=== PATIENT | male | born 1965 | race Caucasian/White ===

== ENCOUNTER 2020-12-02 15:13 | Inpatient (IN) ==
[2020-12-02] MEDS ORDERED: IOPAMIDOL 100 ML BOTTLE IV ONE (15:14)
[2020-12-02] MEDS ORDERED: ONDANSETRON 4 MG/2 ML VIAL IV ONE (15:46)
[2020-12-02] MEDS ORDERED: KETOROLAC 15 MG/ML VIAL IV ONE (15:46)
[2020-12-02] MEDS ORDERED: 0.9 % SODIUM CHLORIDE 1,000 ML IV ONE ×2 (15:46→18:11)
--- NOTE | 2020-12-02 16:32 | XRay Report ---
CLINICAL INFORMATION: cough COMPARISON: 11/13/2020 FINDINGS: Heart size, mediastinum and pulmonary vessels are normal. COPD changes and multiple tiny densely calcified granulomas throughout both lungs again noted. There are no infiltrates, soft tissue nodules or other new pulmonary abnormalities. Pleural spaces are normal IMPRESSION: COPD. No acute disease Interpreted and Authenticated by: Ty Roland 12/02/20
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
[2020-12-02 17:11] LABS: Hematocrit 48.3 % (40.1-51.0); Hemoglobin 16.1 g/dL (13.7-17.5); Mean Cell Volume 96.6 fL (80.0-100.0); Mean Corpuscular HGB Conc 33.3 g/dL (31.0-36.0); Platelet Count 219 K/mcL (140-440); WBC 6.4 K/mcL (4.5-11.0)
[2020-12-02 17:33] LABS: ALT/SGPT 33 U/L (<40); AST/SGOT 25 U/L (<40); Albumin 3.4 gm/dL (3.2-5.2); Alkaline Phosphatase 100 U/L (39-117); Bilirubin,Total 0.2 mg/dL (0.1-1.0); Blood Urea Nitrogen 12 mg/dL (6-20); Calcium 8.8 mg/dL (8.6-10.4); Carbon Dioxide 28 mmol/L (22-30); Chloride 97 mmol/L (96-108); Globulin 3.5 gm/dL (2.2-3.7); Glomerular Filtration Rate 101; Glucose 111 mg/dL (70-105)
[2020-12-02] MEDS ORDERED: cefTRIAXone 1 GM VIAL IV ONE (17:35)
[2020-12-02 18:02] LABS: Band Neutrophils % 3 % (0-10); Eosinophils % (Manual) 1 % (0-7); Lymphocytes % 11 % (15-49); Monocytes % (Manual) 5 % (1-12); Platelet Estimate NORMAL (Normal); RBC Morphology NORMAL (Normal); Reactive Lymphocytes 2 % (0-2); Segmented Neutrophils % 78 % (38-78)
[2020-12-02] MEDS ORDERED: CEPHALEXIN (PP) 250 MG CAPSULE (#4) PO SCH (18:30)
[2020-12-02] MEDS ORDERED: IPRATROPIUM/ALBUTEROL 3 ML AMPUL.NEB NEB ONE ×2 (18:44→23:39)
[2020-12-02] MEDS ORDERED: CLAVULANATE PO ONE (20:13)
[2020-12-02] MEDS ORDERED: AMOXICILLIN PO ONE (20:13)
[2020-12-02] MEDS ORDERED: AZITHROMYCIN 250 MG TABLET PO ONE (20:13)
[2020-12-02] MEDS ORDERED: methylPREDNISolone SOD SUCC 125 MG/2 ML VIAL IV ONE (20:36)
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
[2020-12-02] MEDS ORDERED: METOCLOPRAMIDE 10 MG/2 ML VIAL IV PRN (22:18)
[2020-12-02] MEDS ORDERED: POTASSIUM CHLORIDE 20 MEQ TABLET PO PRN ×2 (22:18)
[2020-12-02] MEDS ORDERED: POLYETHYLENE GLYCOL 3350 17 GM PACKET PO PRN (22:18)
[2020-12-02] MEDS ORDERED: IPRATROPIUM/ALBUTEROL 3 ML AMPUL.NEB NEB PRN (22:18)
[2020-12-02] MEDS ORDERED: HEPARIN 5,000 UNIT/ML VIAL SQ SCH (22:18)
[2020-12-02] MEDS ORDERED: NON FORMULARY MEDICATION 1 DOSE MISCELL (Fluticasone-Umeclidin-Vilanter [Trelegy Ellipta] INHALATION SCH (22:18)
[2020-12-02] MEDS ORDERED: ONDANSETRON 4 MG/2 ML VIAL IV PRN (22:18)
[2020-12-02] MEDS ORDERED: HYDROcodone/APAP 5/325MG TABLET PO PRN (22:18)
[2020-12-02] MEDS ORDERED: SENNOSIDES 1 TABLET PO PRN (22:18)
[2020-12-02] MEDS ORDERED: MAGNESIUM SULFATE 2 GM/50 ML BAG IV PRN (22:18)
[2020-12-02] MEDS ORDERED: POTASSIUM CHLORIDE 40 MEQ in DEXTROSE 5% IN WATER 500 ML IV PRN (22:18)
[2020-12-02] MEDS: DOCUSATE SODIUM 100 MG CAPSULE PO SCH (22:44)
[2020-12-02] MEDS ORDERED: HEPARIN 5,000 UNIT/ML VIAL ONE (23:29)
[2020-12-02] MEDS ORDERED: METOPROLOL TARTRATE 25 MG TABLET ONE (23:29)
[2020-12-02] MEDS: AZITHROMYCIN 500 MG in DEXTROSE 5% IN WATER 250 ML IV SCH (23:50)
[2020-12-02] MEDS: METOPROLOL TARTRATE 25 MG TABLET PO SCH (23:53)
[2020-12-02] MEDS: 0.9 % SODIUM CHLORIDE 10 ML SYRINGE IV SCH (23:53)
[2020-12-02] MEDS: IPRATROPIUM/ALBUTEROL 3 ML AMPUL.NEB NEB SCH (23:54)
[2020-12-03] MEDS: ACETAMINOPHEN 325 MG TABLET PO PRN ×2 (00:49→10:41)
[2020-12-03] MEDS ORDERED: ACETAMINOPHEN 325 MG TABLET PO ONE (00:52)
[2020-12-03] MEDS: 0.9 % SODIUM CHLORIDE 10 ML SYRINGE IV SCH ×3 (04:14→21:22)
[2020-12-03] MEDS: IPRATROPIUM/ALBUTEROL 3 ML AMPUL.NEB NEB SCH ×2 (07:14→13:52)
--- NOTE | 2020-12-03 07:34 | Internal Med Progress Note ---
SUBJECTIVE Subjective Patient information: Note initiated : 12/03/20 at 7:31 am Service Date, if different from initiated Date: [] Patient: Min Hoang a 55 y/o M admitted on 12/02/20 for Mouth pain. Chief Complaint: [] Interval history: Chief Complaint: [] History of present illness: Mr. Hoang is a 55 year old M Presents the ED with severe tooth pain. Patient states month ago he broke a wisdom tooth and he was planning on seeing a dentist but has been too busy he says. He says he came in today because the pain recently just got much worse and he had swelling and he felt poorly and he felt like he was getting poisoning. He also notes a history of COPD and he says his infection prevention practitioner and primary care been talking about possible oxygen over the past month with him. He had some test scheduled but they were postponed. He has a chronic cough and chronic shortness of breath which he feels are unchanged for the most part but he says he feels more wheezy the past couple days. Has had headache chills and nausea. Feels weak. Denies chest pain. In the ED he was evaluated for his tooth pain but found to be wheezing on exam and found to be hypoxic in the mid 80s on room air. Given duo nebs and started on steroids in the ED and admission was requested for COPD exacerbation with hypoxia. He was tachycardic as well. His CT chest was done which was read as no pulmonary emboli per my discussion with the ER provider. 12/03 Patient states he had poor sleep last night because of interruptions. Says he has a headache and finally got Tylenol. Seems to be frustrated. States has minimal cough denies shortness of breath at rest. Patient unvaccinated. Review of Systems: denies headache/fever/chills/nausea/vomiting/chest or abdominal pain/diarrhea. Otherwise see above. Constitutional Vitals: Vital Signs Temp Pulse Resp BP Pulse Ox 96.8 F L 71 16 106/81 97 12/03/20 07:28 12/03/20 07:28 12/03/20 07:28 12/03/20 07:28 12/03/20 07:28 Period Temp Pulse Resp BP Sys/Garcia Pulse Ox Last 24 Hr 96.8 F-99.9 F 71-130 14-29 106-169/66-114 82-97 Intake and Output 12/02/20 12/03/20 12/03/20 21:59 05:59 13:59 Intake Total 1999 250 Output Total 1000 Balance 1999 -750 Weight 80.739 kg Intake & Output: Intake & Output 12/02/20 12/03/20 12/03/20 21:59 05:59 13:59 Intake Total 1999 250 Output Total 1000 Balance 1999 -750 Weight 80.739 kg Intake: IV 1999 250 Sodium Chloride 0.9% 1,000 ml @ 2000 Wide Open IV [facility] Rx#: [id number] Zithromax 500 mg In Dextrose 5% 250 in Water 250 ml @ 250 mls/hr IV Q24H [facility] Rx#:[id number] Output: Void Amount 1000 Other: Urine Appearance Clear Urine Color Bright Yellow Urine Odor Normal Exam: General: Alert, Awake, No acute Distress Eyes/N/T: EOMI, Head/Neck: neck supple, CV: RRR, No murmurs, Pulm: no wheezing today, no rales Abd: soft, nontender, +BS x4 Ext: no clubbing/cyanosis/edema Neuro: Alert, no focal deficits, moves all extremities, Skin: warm/dry OBJ DATA Labs CBC & Chem 7: 12/02/20 16:22 12/02/20 16:22 Labs: Abnormal Lab Results 12/02/20 12/02/20 16:22 16:22 MPV 11.0 H Lymphocytes % 11 L Glucose 111 H Meds: Medications Acetaminophen (Acetaminophen 325 Mg Tablet) 650 mg PO Q6HP PRN PRN Reason: PAIN/FEVER > 101 Last Admin: 12/03/20 00:49 Dose: 650 mg Documented by: Hydrocodone Bitart/Acetaminophen (Hydrocodone/Apap 5/325mg Tablet) 1 tab PO Q4HP PRN PRN Reason: PAIN LEVEL 3-6 Albuterol/Ipratropium (Ipratropium/Albuterol 3 Ml Ampul.Neb) 3 ml NEB Q6HRT [facility] Stop: 12/04/20 19:01 Last Admin: 12/03/20 07:14 Dose: Not Given Documented by: Albuterol/Ipratropium (Ipratropium/Albuterol 3 Ml Ampul.Neb) 3 ml NEB Q4HP PRN PRN Reason: Shortness Of Breath Amoxicillin/Clavulanate Potassium (Amoxicillin/Potassium Clav 875 Mg Tablet) [facility] Docusate Sodium (Docusate Sodium 100 Mg Capsule) 100 mg PO BID [facility] Last Admin: 12/02/20 22:44 Dose: Not Given Documented by: Enoxaparin Sodium (Enoxaparin 40 Mg/0.4 Ml Syringe) 40 mg SQ DAILY [facility] Heparin Sodium (Porcine) (Heparin 5,000 Unit/Ml Vial) 5,000 unit SQ Q12 [facility] Stop: 12/02/20 22:19 Last Admin: 12/02/20 23:52 Dose: 5,000 unit Documented by: Azithromycin 500 mg/ Dextrose 250 mls @ 250 mls/hr IV Q24H [facility]; Protocol Stop: 12/04/20 23:17 Last Infusion: 12/03/20 00:55 Dose: Infused Documented by: Potassium Chloride 40 meq/ (Dextrose) 520 mls @ 130 mls/hr IV UD PRN PRN Reason: Potassium < 3 Magnesium Sulfate (Magnesium Sulfate) 2 gm in 50 mls @ 50 mls/hr IV UD PRN PRN Reason: Magnesium </= 1.6 Methylprednisolone Sodium Succinate (Methylprednisolone Sod Succ 40 Mg/Ml Vial) 40 mg IV Q12 [facility] Metoclopramide HCl (Metoclopramide 10 Mg/2 Ml Vial) 10 mg IV Q6HP PRN PRN Reason: Nausea And Vomiting Metoprolol Tartrate (Metoprolol Tartrate 25 Mg Tablet) 25 mg PO BID [facility] Last Admin: 12/02/20 23:53 Dose: 25 mg Documented by: Nicotine (Nicotine 21 Mg Patch) mg TD Q24H [facility] Non-Formulary Medication (Esprvnxvijd-Sffpftgem-Ucgpwsqe [Trelegy Ellipta]) 1 inh INHALATION Q24H [facility] Last Admin: 12/02/20 23:34 Dose: Not Given Documented by: Ondansetron HCl (Ondansetron 4 Mg/2 Ml Vial) 4 mg IV Q4HP PRN PRN Reason: Nausea And Vomiting Polyethylene Glycol (Polyethylene Glycol 3350 17 Gm Packet) 17 gm PO DAILYP PRN PRN Reason: Constipation Potassium Chloride (Potassium Chloride 20 Meq Tablet) 40 meq PO UD PRN PRN Reason: Potssium is 3-3.5 Potassium Chloride (Potassium Chloride 20 Meq Tablet) 40 meq PO UD PRN PRN Reason: Potassium < 3 Senna (Sennosides 1 Tablet) 2 tab PO DAILYP PRN PRN Reason: Constipation Sodium Chloride (0.9 % Sodium Chloride 10 Ml Syringe) 10 ml IV Q8 [facility] Last Admin: 12/03/20 04:14 Dose: 10 ml Documented by: Venlafaxine HCl (Venlafaxine 75 Mg Cap.Xl.24h) 75 mg PO QDAY [facility] A/P Narrative A/P Narrative: A: *Acute hypoxic respiratory failure: *AECOPD(not on home oxygen but he says his infection prevention practitioner has been discussing that lately): -rapid covid neg, pending f/u *Broken tooth/suspected dental infection: *HTN: *Depression: P: -steroids(wean)/nebs -IS/Acapella, home IH, RT -O2 supp, may need at d/c -hold lasix, cont home BB -augmentin of suspected dental infection; f/u with dentist - -ppx: lovenox full code Time Spent With Patient Time: Total time spent is greater than 50% in coordination of care (as docu mented) at patient's floor/unit and/or counseling patient: QUALITY Stroke Symptom Onset Unknown: No VTE Deep Vein Thrombosis/Pulmonary Embolism Present on Admission: No
[2020-12-03] MEDS: AMOXICILLIN/POTASSIUM CLAV 875 MG TABLET PO SCH ×2 (07:51→17:37)
--- NOTE | 2020-12-03 07:51 | Cat Scan Report ---
CLINICAL INFORMATION: Hypoxia and tachycardia COMPARISON: Chest CTs 07/23/2018 and 08/11/2020 TECHNIQUE: 80 cc of Isovue-370 were injected intravenously, and 25 seconds later, 0.625 mm helical slices were obtained from the lung apices through the bases. Following reconstruction, 2.5 mm sagittal, coronal and axial reformations were processed and reviewed at lung, mediastinal and bone windows. 7 mm axial MIPS were also obtained to optimize pulmonary nodule detection. The exam was performed using radiation dose optimization techniques including, but not limited to, automated exposure control, adjustment of the mA and/or kV according to patient size and use of iterative reconstruction technique. FINDINGS: Pulmonary parenchymal windows show moderate emphysema changes consisting predominantly of chronic bronchitis with elevated lung volumes and wall thickening/dilatation of the bronchi. Only a few bullae are seen within the right upper lobe. Large band of fibrosis encases the right upper lobe and segmental bronchi extending to the apical pleura. No change from the prior two examinations. Scattered tiny calcified granulomas in both lungs maintain stability. There are no new or enlarging nodules. New small groundglass and alveolar infiltrates are scattered within the periphery of the left upper and lower lobes. Infection is suspected. Pleural spaces are normal. Mediastinal windows mild central pulmonary artery enlargement: main pulmonary diameter 3 cm. The heart is normal in size, however there is asymmetric enlargement of the right ventricle and atrium supportive of elevated pulmonary artery pressures. No appreciable atherosclerotic plaque present in the coronary arteries. The thoracic aorta is normal diameter with diffuse fibrofatty calcific plaque. Mildly enlarged lymph nodes the lower mediastinum and right hilum maintain stability of these should represent benign reactive lymph nodes. Esophagus is grossly normal. The thyroid is unremarkable. Bones and soft tissues of the chest wall show no abnormality. Superior abdominal images are unremarkable. IMPRESSION: 1. Centrilobular emphysema changes consisting, predominantly, of chronic bronchitis with few bullae confined to the right upper lobe. Moderate linear fibrosis in the right upper lobe extending to apical pleural maintains long-term stability 2. Scattered (4-5) small groundglass infiltrates in the left upper and lower lobes which are new. Suspect infection or, less likely, aspiration. 3. Mildly enlarged lymph nodes the lower mediastinum and right hilum maintain long-term stability compatible benign reactive adenopathy 4. Mild enlargement of the central pulmonary arteries and right heart chambers suggesting pulmonary hypertension related to emphysema. Consider correlation with echocardiogram Interpreted and Authenticated by: Ty Roland/5/21
[2020-12-03] MEDS ORDERED: methylPREDNISolone SOD SUCC 40 MG/ML VIAL IV SCH (09:00)
[2020-12-03] MEDS: Fluticasone-Umeclidin-Vilanter [Trelegy Ellipta] Inhaler INH SCH (09:50)
[2020-12-03] MEDS: METOPROLOL TARTRATE 25 MG TABLET PO SCH ×2 (09:50→21:21)
[2020-12-03] MEDS: ENOXAPARIN 40 MG/0.4 ML SYRINGE SQ SCH (09:50)
[2020-12-03] MEDS: VENLAFAXINE 75 MG CAP.XL.24H PO SCH (09:50)
[2020-12-03] MEDS: DOCUSATE SODIUM 100 MG CAPSULE PO SCH ×2 (09:51→21:21)
[2020-12-03] MEDS: NICOTINE 21 MG PATCH TD SCH (10:41)
[2020-12-03 11:00] LABS: Hematocrit 49.9 % (40.1-51.0); Mean Cell Volume 100.2 fL (80.0-100.0); Mean Corpuscular HGB Conc 32.1 g/dL (31.0-36.0); Platelet Count 218 K/mcL (140-440); RBC 4.98 M/mcL (4.63-6.08); Red Cell Distribution Width 12.9 % (11.5-14.5); WBC 6.2 K/mcL (4.5-11.0)
[2020-12-03] MEDS ORDERED: LORazepam 2 MG/ML VIAL IV ONE (11:01)
[2020-12-03 11:23] LABS: ALT/SGPT 28 U/L (<40); AST/SGOT 21 U/L (<40); Albumin/Globulin Ratio 0.9 (1.0-2.3); Alkaline Phosphatase 93 U/L (39-117); Bilirubin,Direct < 0.2 mg/dL (0-0.3); Bilirubin,Total 0.2 mg/dL (0.1-1.0); Blood Urea Nitrogen 13 mg/dL (6-20); Calcium 8.7 mg/dL (8.6-10.4); Carbon Dioxide 26 mmol/L (22-30); Chloride 96 mmol/L (96-108); Globulin 3.5 gm/dL (2.2-3.7); Glomerular Filtration Rate 107; Glucose 266 mg/dL (70-105); Lactate Dehydrogenase 228 U/L (135-225); Phosphorous 2.8 mg/dL (2.5-4.5); Triglycerides 112 mg/dL (<150); Uric Acid 5.1 mg/dL (2.5-8.0)
--- NOTE | 2020-12-03 11:23 | Discharge Summary ---
Discharge Provider Provider Patient information: Note initiated : 12/03/20 at 11:22 am Service Date, if different from initiated Date: [] Patient: Min Hoang 55 y/o M admitted on 12/02/20 for Mouth pain. Chief Complaint: [] Date of admission: 12/02/20 21:51 Primary care physician: Yamil Perry MD Consults: 12/02/20 Consult to Physician [CONS] Stat Comment: Consulting Provider: Ho Dasilva Reason For Exam: Physician to Consult Discharge Meds Discharge Medications Home Medications albuterol sulfate 90 mcg/actuation aerosol inhaler 2 puff INHALATION Q6H PRN #8.5 g 08/18/20 [Rx Confirmed 12/02/20 Last Taken 12/01/20 09:00] fluticasone fur. 200 mcg-umeclid 62.5 mcg-vilant 25 mcg inhalat.powder 1 inh INHALATION Q24H #60 ea 08/18/20 [Rx Confirmed 12/02/20 Last Taken 12/01/20 09:00] metoprolol tartrate 25 mg tablet 25 mg PO BID #60 tab 08/18/20 [Rx Confirmed 12/02/20 Last Taken 12/02/20 09:00] nicotine 21 mg/24 hr daily transdermal patch 1 patch TRANSDERMAL Q24H #14 ea 08/18/20 [Rx Confirmed 12/02/20 Last Taken 12/02/20 09:00] potassium chloride 10 mEq tablet,extended release 10 meq PO QDAY #30 tab 08/18/20 [Rx Confirmed 12/02/20 Last Taken 12/02/20 09:00] ipratropium bromide [Atrovent HFA] 2 puff INHALATION PRN PRN 08/25/20 [History Confirmed 12/02/20 Last Taken Unknown] venlafaxine 75 mg capsule,extended release 24 hr 75 mg PO QDAY #30 cap 10/06/20 [Rx Confirmed 12/02/20 Last Taken 12/02/20 09:00] furosemide 40 mg tablet See Rx Instructions .ROUTE .COMPLEX tab 11/08/20 [History Confirmed 12/02/20 Last Taken 12/02/20 09:00] chlorhexidine gluconate [Peridex] 15 ml MM BID #118 mouthwash 12/02/20 [Rx Last Taken Unknown] amoxicillin-pot clavulanate 875 mg PO BIDCC #10 tab 12/03/20 [Rx Last Taken Unknown] dexamethasone 6 mg PO QDAY #3 tab 12/03/20 [Rx Last Taken Unknown] COURSE Hospital Course Hospital course: History of present illness: Mr. Hoang is a 55 year old M Presents the ED with severe tooth pain. Patient states month ago he broke a wisdom tooth and he was planning on seeing a dentist but has been too busy he says. He says he came in today because the pain recently just got much worse and he had swelling and he felt poorly and he felt like he was getting poisoning. 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 He had some test scheduled but they were postponed. He has a chronic cough and chronic shortness of breath which he feels are unchanged for the most part but he says he feels more wheezy the past couple days. Has had headache chills and nausea. Feels weak. Denies chest pain. In the ED he was evaluated for his tooth pain but found to be wheezing on exam and found to be hypoxic in the mid 80s on room air. Given duo nebs and started on steroids in the ED and admission was requested for COPD exacerbation with hypoxia. He was tachycardic as well. His CT chest was done which was read as no pulmonary emboli per my discussion with the ER provider. 12/03 Patient states he had poor sleep last night because of interruptions. Says he has a headache and finally got Tylenol. Seems to be frustrated. States has minimal cough denies shortness of breath at rest. Patient unvaccinated. 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 has been discussing that lately): -rapid covid neg, pending f/u *Broken tooth/suspected dental infection: *HTN: *Depression: Discharge diagnosis: Acute exacerbation COPD acute hypoxic respite failure dental infection Secondary discharge diagnosis: Hypertension depression Time Spent with Patient Time attestation: Total time spent providing and/or coordinating discharge services: Time spent: Greater than 30 minutes EXAM Constitutional Vitals: Temp Pulse Resp BP Pulse Ox 97 F 75 18 133/86 95 12/03/20 11:21 12/03/20 11:21 12/03/20 11:21 12/03/20 11:21 12/03/20 11:21 Discharge Data Data Completed and Pending Labs on day of discharge: Labs from last 24 hours 12/03/20 12/03/20 12/02/20 09:48 09:48 16:22 WBC 6.2 RBC 4.98 Hgb 16.0 Hct 49.9 MCV 100.2 H MCH 32.1 MCHC 32.1 RDW 12.9 Plt Count 218 MPV 11.0 H Seg Neutrophils % Band Neutrophils % Lymphocytes % Monocytes % (Manual) Eosinophils % (Manual) Reactive Lymphocytes Platelet Estimate Pending RBC Morphology Pending VBG Lactic Acid Sodium Pending Potassium Pending Chloride Pending Carbon Dioxide Pending Anion Gap Pending BUN Pending Creatinine Pending GFR Calculation Pending Glucose Pending Uric Acid Pending Calcium Pending Phosphorus Pending Magnesium Pending Total Bilirubin Pending Direct Bilirubin Pending GGT Pending AST Pending ALT Pending Alkaline Phosphatase Pending Lactate Dehydrogenase Pending Troponin T < 0.01 Total Protein Pending Albumin Pending Globulin Pending Albumin/Globulin Ratio Pending Triglycerides Pending 12/02/20 12/02/20 12/02/20 16:22 16:22 16:22 WBC 6.4 RBC 5.00 Hgb 16.1 Hct 48.3 MCV 96.6 MCH 32.2 MCHC 33.3 RDW 13.0 Plt Count 219 MPV 11.0 H Seg Neutrophils % 78 Band Neutrophils % 3 Lymphocytes % 11 L Monocytes % (Manual) 5 Eosinophils % (Manual) 1 Reactive Lymphocytes 2 Platelet Estimate Normal RBC Morphology Normal VBG Lactic Acid 1.2 Sodium 134 Potassium 4.1 Chloride 97 Carbon Dioxide 28 Anion Gap 9.0 BUN 12 Creatinine 0.8 GFR Calculation 101 Glucose 111 H Uric Acid Calcium 8.8 Phosphorus Magnesium Total Bilirubin 0.2 Direct Bilirubin GGT AST 25 ALT 33 Alkaline Phosphatase 100 Lactate Dehydrogenase Troponin T Total Protein 6.9 Albumin 3.4 Globulin 3.5 Albumin/Globulin Ratio 1.0 Triglycerides Discharge Plan Patient/Caregiver Discharge Instructions Activity: increase activity as tolerated Diet: Regular Diet Activity Restrictions/Additional Instructions: RT for home oxygen evaluation. Follow-up with dentist 3 to 10 days. Prescriptions: New chlorhexidine gluconate [Peridex] 118 ML mouthwash 15 ml MM BID Qty: 118 RF: 0 amoxicillin-pot clavulanate 875-125 mg Tablet 875 mg PO BIDCC Qty: 10 RF: 0 dexamethasone 6 mg tablet 6 mg PO QDAY Qty: 3 RF: 0 Continued ipratropium bromide [Atrovent HFA] 2 puff inhalation PRN PRN (Reason: Shortness Of Breath Or Wheezing) RF: 0 venlafaxine 75 mg capsule,extended release 24hr 75 mg PO QDAY Qty: 30 RF: 1 furosemide 40 mg tablet See Rx Instructions .ROUTE .COMPLEX RF: 0 metoprolol tartrate 25 mg tablet 25 mg PO BID Qty: 60 RF: 3 albuterol sulfate 90 mcg/actuation HFA aerosol inhaler 2 puff inhalation Q6H PRN (Reason: shortness of breath or wheezing) Qty: 8.5 RF: 3 Trelegy Ellipta 200-62.5-25 mcg blister with device 1 inh inhalation Q24H Qty: 60 RF: 6 potassium chloride 10 mEq tablet extended release 10 meq PO QDAY Qty: 30 RF: 3 nicotine 21 mg/24 hr patch 24 hour 1 patch transdermal Q24H Qty: 14 RF: 0 Follow Up Plan Follow up with: Yamil Perry MD [Primary Care Provider] - Patient Disposition: Home, Self-Care Prognosis: Fair Overall status at discharge: patient is progressing back to baseline QUALITY VTE Deep Vein Thrombosis/Pulmonary Embolism Present on Admission: No
[2020-12-03 13:13] LABS: Band Neutrophils % 3 % (0-10); Lymphocytes % 11 % (15-49); Platelet Estimate NORMAL (Normal); RBC Morphology NORMAL (Normal); Segmented Neutrophils % 86 % (38-78)
[2020-12-03] MEDS: AZITHROMYCIN 500 MG in DEXTROSE 5% IN WATER 250 ML IV SCH (14:45)
[2020-12-03] MEDS ORDERED: REMDESIVIR 200 MG in 0.9 % SODIUM CHLORIDE 250 ML IV ONE (15:00)
[2020-12-03] MEDS: predniSONE 20 MG TABLET PO SCH (17:36)
--- NOTE | 2020-12-03 18:46 | XRay Report ---
CLINICAL INFORMATION: f/u. covid positive COMPARISON: 12/02/2020 FINDINGS: Heart size, mediastinum and pulmonary vessels remain normal. Centrilobular emphysema and multiple tiny calcified granulomas scattered throughout both lungs are seen as before. Moderate vague infiltrates have progressed in the left upper and left lower lungs. No effusion IMPRESSION: Moderate, yet vague, patchy infiltrates progressing in the left upper and lower lungs. Findings compatible Covid pneumonia. Underlying COPD Interpreted and Authenticated by: Ty Roland 12/03/20
[2020-12-04] MEDS: 0.9 % SODIUM CHLORIDE 10 ML SYRINGE IV SCH ×3 (05:55→21:26)
--- NOTE | 2020-12-04 07:25 | Internal Med Progress Note ---
SUBJECTIVE Subjective Patient information: Note initiated : 12/04/20 at 7:23 am Service Date, if different from initiated Date: [] Patient: Min Haong a 55 y/o M admitted on 12/02/20 for Mouth pain. Chief Complaint: [] Interval history: History of present illness: Mr. Hoang is a 55 year old M Presents the ED with severe tooth pain. Patient states month ago he broke a wisdom tooth and he was planning on seeing a dentist but has been too busy he says. He says he came in today because the pain recently just got much worse and he had swelling and he felt poorly and he felt like he was getting poisoning. 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 He had some test scheduled but they were postponed. He has a chronic cough and chronic shortness of breath which he feels are unchanged for the most part but he says he feels more wheezy the past couple days. Has had headache chills and nausea. Feels weak. Denies chest pain. In the ED he was evaluated for his tooth pain but found to be wheezing on exam and found to be hypoxic in the mid 80s on room air. Given duo nebs and started on steroids in the ED and admission was requested for COPD exacerbation with hypoxia. He was tachycardic as well. His CT chest was done which was read as no pulmonary emboli per my discussion with the ER provider. 12/03 Patient states he had poor sleep last night because of interruptions. Says he has a headache and finally got Tylenol. Seems to be frustrated. States has minimal cough denies shortness of breath at rest. Patient unvaccinated. 12/04 Has mild cough. Shortness of breath. Only requiring several liters currently. Complains of or sleep from bed and interruptions in neck and back pain. Review of Systems: denies headache/fever/chills/nausea/vomiting/chest or abdominal pain/diarrhea. Otherwise see above. Constitutional Vitals: Vital Signs Temp Pulse Resp BP Pulse Ox 97.1 F 77 20 122/58 92 12/04/20 04:00 12/04/20 04:00 12/04/20 04:00 12/04/20 04:00 12/04/20 04:00 Period Temp Pulse Resp BP Sys/Garcia Pulse Ox Last 24 Hr 96.6 F-97.6 F 71-87 16-20 106-133/58-95 90-97 Intake and Output 12/03/20 12/04/20 12/04/20 21:59 05:59 13:59 Intake Total 740 100 Balance 740 100 Weight 81.817 kg Intake & Output: Intake & Output 12/03/20 12/04/20 12/04/20 21:59 05:59 13:59 Intake Total 740 100 Balance 740 100 Weight 81.817 kg Intake: IV 500 Zithromax 500 mg In Dextrose 5% 250 in Water 250 ml @ 250 mls/hr IV Q24H [facility] Rx#:[id number] Veklury 200 mg In Sodium 250 Chloride 0.9% 250 ml @ 500 mls/ hr IV ONCE ONE Rx#:[id number] Oral 240 100 Exam: General: Alert, Awake, No acute Distress Eyes/N/T: EOMI, Head/Neck: neck supple, CV: RRR, No murmurs, Pulm: no wheezing today, minimal fine rales Abd: soft, nontender, +BS x4 Ext: no clubbing/cyanosis/edema Neuro: Alert, no focal deficits, moves all extremities, Skin: warm/dry OBJ DATA Labs CBC & Chem 7: 12/03/20 09:48 12/03/20 09:48 Labs: Abnormal Lab Results 12/03/20 12/03/20 12/02/20 09:48 09:48 16:22 MCV 100.2 H MPV 11.0 H Seg Neutrophils % 86 H Lymphocytes % 11 L Glucose 266 H 111 H Lactate Dehydrogenase 228 H Albumin 3.0 L Albumin/Globulin Ratio 0.9 L 12/02/20 16:22 MCV MPV 11.0 H Seg Neutrophils % Lymphocytes % 11 L Glucose Lactate Dehydrogenase Albumin Albumin/Globulin Ratio Meds: Medications Acetaminophen (Acetaminophen 325 Mg Tablet) 650 mg PO Q6HP PRN PRN Reason: PAIN/FEVER > 101 Last Admin: 12/03/20 10:41 Dose: 650 mg Documented by: Hydrocodone Bitart/Acetaminophen (Hydrocodone/Apap 5/325mg Tablet) 1 tab PO Q4HP PRN PRN Reason: PAIN LEVEL 3-6 Albuterol/Ipratropium (Ipratropium/Albuterol 3 Ml Ampul.Neb) 3 ml NEB Q4HP PRN PRN Reason: Shortness Of Breath Amoxicillin/Clavulanate Potassium (Amoxicillin/Potassium Clav 875 Mg Tablet) [facility] Last Admin: 12/03/20 17:37 Dose: 875 mg Documented by: Docusate Sodium (Docusate Sodium 100 Mg Capsule) 100 mg PO BID [facility] Last Admin: 12/03/20 21:21 Dose: 100 mg Documented by: Enoxaparin Sodium (Enoxaparin 40 Mg/0.4 Ml Syringe) 40 mg SQ DAILY [facility] Last Admin: 12/03/20 09:50 Dose: 40 mg Documented by: Azithromycin 500 mg/ Dextrose 250 mls @ 250 mls/hr IV Q24H [facility]; Protocol Stop: 12/04/20 23:17 Last Infusion: 12/03/20 15:45 Dose: Infused Documented by: Potassium Chloride 40 meq/ (Dextrose) 520 mls @ 130 mls/hr IV UD PRN PRN Reason: Potassium < 3 Magnesium Sulfate (Magnesium Sulfate) 2 gm in 50 mls @ 50 mls/hr IV UD PRN PRN Reason: Magnesium </= 1.6 REMDESIVIR 100 mg/ Sodium (Chloride) 250 mls @ 500 mls/hr IV Q24H [facility] Stop: 12/07/20 15:29 Metoclopramide HCl (Metoclopramide 10 Mg/2 Ml Vial) 10 mg IV Q6HP PRN PRN Reason: Nausea And Vomiting Metoprolol Tartrate (Metoprolol Tartrate 25 Mg Tablet) 25 mg PO BID [facility] Last Admin: 12/03/20 21:21 Dose: 25 mg Documented by: Nicotine (Nicotine 21 Mg Patch) 21 mg TD DAILY@1000 [facility] Last Admin: 12/03/20 10:41 Dose: 21 mg Documented by: Ondansetron HCl (Ondansetron 4 Mg/2 Ml Vial) 4 mg IV Q4HP PRN PRN Reason: Nausea And Vomiting Last Admin: 12/03/20 15:57 Dose: 4 mg Documented by: Fluticasone- Umeclidin-Vilanter [ Trelegy Ellipta] Inhaler 1 dose INH Q24H [facility] Last Admin: 12/03/20 09:50 Dose: Not Given Documented by: Polyethylene Glycol (Polyethylene Glycol 3350 17 Gm Packet) 17 gm PO DAILYP PRN PRN Reason: Constipation Potassium Chloride (Potassium Chloride 20 Meq Tablet) 40 meq PO UD PRN PRN Reason: Potssium is 3-3.5 Potassium Chloride (Potassium Chloride 20 Meq Tablet) 40 meq PO UD PRN PRN Reason: Potassium < 3 Prednisone (Prednisone 20 Mg Tablet) 40 mg PO BIDCC [facility] Last Admin: 12/03/20 17:36 Dose: 40 mg Documented by: Senna (Sennosides 1 Tablet) 2 tab PO DAILYP PRN PRN Reason: Constipation Sodium Chloride (0.9 % Sodium Chloride 10 Ml Syringe) 10 ml IV Q8 [facility] Last Admin: 12/04/20 05:55 Dose: 10 ml Documented by: Venlafaxine HCl (Venlafaxine 75 Mg Cap.Xl.24h) 75 mg PO QDAY [facility] Last Admin: 12/03/20 09:50 Dose: 75 mg Documented by: A/P Narrative A/P Narrative: A: *Covid PNA: -santiago test in ED neg. 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 been discussing that lately): 2/2 above *Acute hypoxic respiratory failure: -on 2L NC *Broken tooth/suspected dental infection: *HTN: *Depression: P: -remdes/glucocorticoids -IS/Acapella, home IH, RT -O2 supp, may need at d/c -cont home BB/lasix -augmentin for suspected dental infection; f/u with dentist - -ppx: lovenox full code Time Spent With Patient Time: Total time spent is greater than 50% in coordination of care (as documente d) at patient's floor/unit and/or counseling patient: QUALITY Stroke Symptom Onset Unknown: No VTE Deep Vein Thrombosis/Pulmonary Embolism Present on Admission: No
[2020-12-04] MEDS: AMOXICILLIN/POTASSIUM CLAV 875 MG TABLET PO SCH ×2 (08:30→17:45)
[2020-12-04] MEDS: ENOXAPARIN 40 MG/0.4 ML SYRINGE SQ SCH (08:31)
[2020-12-04] MEDS: DOCUSATE SODIUM 100 MG CAPSULE PO SCH ×2 (08:31→21:25)
[2020-12-04] MEDS: VENLAFAXINE 75 MG CAP.XL.24H PO SCH (08:31)
[2020-12-04] MEDS: METOPROLOL TARTRATE 25 MG TABLET PO SCH ×2 (08:31→21:25)
[2020-12-04] MEDS: predniSONE 20 MG TABLET PO SCH ×2 (08:31→17:44)
[2020-12-04] MEDS: AZITHROMYCIN 500 MG in DEXTROSE 5% IN WATER 250 ML IV SCH (08:31)
[2020-12-04] MEDS: Fluticasone-Umeclidin-Vilanter [Trelegy Ellipta] Inhaler INH SCH (08:43)
[2020-12-04] MEDS: FUROSEMIDE 40 MG TABLET PO SCH (08:57)
[2020-12-04] MEDS: NICOTINE 21 MG PATCH TD SCH (10:20)
[2020-12-04] MEDS: REMDESIVIR 100 MG in 0.9 % SODIUM CHLORIDE 250 ML IV SCH (15:21)
[2020-12-05] MEDS: 0.9 % SODIUM CHLORIDE 10 ML SYRINGE IV SCH (06:01)
[2020-12-05 07:48] LABS: Basophils # (Auto) 0.02 K/mcL (0.00-0.30); Basophils % (Auto) 0.1 % (0.0-2.0); Eosinophils # (Auto) 0 K/mcL (0.00-0.70); Eosinophils % (Auto) 0 % (0.0-7.0); Hematocrit 48.3 % (40.1-51.0); Hemoglobin 15.8 g/dL (13.7-17.5); Lymphocytes # (Auto) 1.46 K/mcL (1.50-4.80); Lymphocytes % (Auto) 10.8 % (15.5-49.0); Mean Cell Volume 98.6 fL (80.0-100.0); Mean Corpuscular HGB Conc 32.7 g/dL (31.0-36.0); Mean Platelet Volume 10.9 fL (7.4-10.4); Monocytes # (Auto) 0.92 K/mcL (0.10-0.90); Monocytes % (Auto) 6.8 % (1.0-12.0); Neutrophils % (Auto) 82.3 % (38.0-78.0); Platelet Count 276 K/mcL (140-440); Red Cell Distribution Width 12.7 % (11.5-14.5); WBC 13.5 K/mcL (4.5-11.0)
[2020-12-05 08:12] LABS: ALT/SGPT 29 U/L (<40); AST/SGOT 21 U/L (<40); Albumin 3.1 gm/dL (3.2-5.2); Alkaline Phosphatase 87 U/L (39-117); Bilirubin,Total 0.2 mg/dL (0.1-1.0); Blood Urea Nitrogen 20 mg/dL (6-20); Calcium 8.9 mg/dL (8.6-10.4); Carbon Dioxide 32 mmol/L (22-30); Chloride 96 mmol/L (96-108); Globulin 3.2 gm/dL (2.2-3.7); Glomerular Filtration Rate 114; Glucose 97 mg/dL (70-105)
[2020-12-05] MEDS: ENOXAPARIN 40 MG/0.4 ML SYRINGE SQ SCH (08:13)
[2020-12-05] MEDS: FUROSEMIDE 40 MG TABLET PO SCH (08:13)
[2020-12-05] MEDS: AMOXICILLIN/POTASSIUM CLAV 875 MG TABLET PO SCH (08:13)
[2020-12-05] MEDS: VENLAFAXINE 75 MG CAP.XL.24H PO SCH (08:13)
[2020-12-05] MEDS: predniSONE 20 MG TABLET PO SCH (08:13)
[2020-12-05] MEDS: METOPROLOL TARTRATE 25 MG TABLET PO SCH (08:13)
[2020-12-05] MEDS: DOCUSATE SODIUM 100 MG CAPSULE PO SCH (08:13)
[2020-12-05] MEDS: Fluticasone-Umeclidin-Vilanter [Trelegy Ellipta] Inhaler INH SCH (08:14)
[2020-12-05] MEDS: NICOTINE 21 MG PATCH TD SCH (10:09)
--- NOTE | 2020-12-05 10:40 | Discharge Summary ---
Discharge Provider Provider Patient information: Note initiated : 12/05/20 at 10:40 am Service Date, if different from initiated Date: [] Patient: Min Hoang 55 y/o M admitted on 12/02/20 for Mouth pain. Chief Complaint: [CoVID pneumonia, COPD exacerbation, and dental abscess] Date of admission: 12/02/20 21:51 Discharge date: 12/05/20 Primary care physician: Yamil Perry MD Consults: 12/02/20 Consult to Physician [CONS] Stat Comment: Consulting Provider: Ho Dasilva Reason For Exam: Physician to Consult Discharge Meds Discharge Medications Home Medications albuterol sulfate 90 mcg/actuation aerosol inhaler 2 puff INHALATION Q6H PRN #8.5 g 08/18/20 [Rx Confirmed 12/02/20 Last Taken 12/01/20 09:00] fluticasone fur. 200 mcg-umeclid 62.5 mcg-vilant 25 mcg inhalat.powder 1 inh INHALATION Q24H #60 ea 08/18/20 [Rx Confirmed 12/02/20 Last Taken 12/01/20 09:00] metoprolol tartrate 25 mg tablet 25 mg PO BID #60 tab 08/18/20 [Rx Confirmed 12/02/20 Last Taken 12/02/20 09:00] nicotine 21 mg/24 hr daily transdermal patch 1 patch TRANSDERMAL Q24H #14 ea 08/18/20 [Rx Confirmed 12/02/20 Last Taken 12/02/20 09:00] potassium chloride 10 mEq tablet,extended release 10 meq PO QDAY #30 tab 08/18/20 [Rx Confirmed 12/02/20 Last Taken 12/02/20 09:00] ipratropium bromide [Atrovent HFA] 2 puff INHALATION PRN PRN 08/25/20 [History Confirmed 12/02/20 Last Taken Unknown] venlafaxine 75 mg capsule,extended release 24 hr 75 mg PO QDAY #30 cap 10/06/20 [Rx Confirmed 12/02/20 Last Taken 12/02/20 09:00] furosemide 40 mg tablet See Rx Instructions .ROUTE .COMPLEX tab 11/08/20 [History Confirmed 12/02/20 Last Taken 12/02/20 09:00] chlorhexidine gluconate [Peridex] 15 ml MM BID #118 mouthwash 12/02/20 [Rx Last Taken Unknown] HYDROcodone/APAP 5/325MG [Mccamey 5/325Mg] #1 ea 12/05/20 [Rx Last Taken Unknown] amoxicillin-pot clavulanate 875 mg PO BIDCC 7 Days #13 tab 12/05/20 [Rx Last Taken Unknown] COURSE Hospital Course Hospital course: Covid pneumonia: Supplemental oxygen's, remdesivir, prednisone, and Lovenox as anticoagulations given. Patient's oxygen requirement down to 2 L/min on December 05, 2020 and otherwise reached clinical stability. Patient would be discharged with home oxygen. COPD exacerbations: Supplemental oxygen's, prednisone, bronchodilator, azithromycin IV for 3 days were given. Patient's oxygen requirement down to 2 L/min on December 05, 2020 and otherwise reached clinical stability. Patient will be discharged with home oxygen. Dental abscess: Augmentin as antibiotics started for the patient's. Patient will need dentist appointment in order to performed tooth extractions and other associated procedures and treatments. Prescriptions of Augmentin for 1 additional week would be given. Discharge diagnosis: CoVID pneumonia, COPD exacerbation, dental abscess Time Spent with Patient Time attestation: Total time spent providing and/or coordinating discharge services: Covid pneumonia: Supplemental oxygen's, remdesivir, prednisone, and Lovenox as anticoagulations given. Patient's oxygen requirement down to 2 L/min on December 05, 2020 and otherwise reached clinical stability. Patient would be discharged with home oxygen. COPD exacerbations: Supplemental oxygen's, prednisone, bronchodilator, azithromycin IV for 3 days were given. Patient's oxygen requirement down to 2 L/min on December 05, 2020 and otherwise reached clinical stability. Patient will be discharged with home oxygen. Dental abscess: Augmentin as antibiotics started for the patient's. Patient will need dentist appointment in order to performed tooth extractions and other associated procedures and treatments. Prescriptions of Augmentin for 1 additional week would be given. EXAM Constitutional Vitals: Temp Pulse Resp BP Pulse Ox 36.2 C 84 20 120/80 94 12/05/20 07:44 12/05/20 07:44 12/05/20 07:44 12/05/20 07:44 12/05/20 07:44 General appearance: cooperative and no acute distress Head Head exam: Present atraumatic and normocephalic Eye Eye exam: Present EOMI and PERRL ENT ENT exam: Present mucous membranes moist, normal exam and normal external ear exam Additional comments: Nasal cannula in place Dental decay Neck Neck exam: Present normal inspection; Absent lymphadenopathy, tenderness and thyromegaly Respiratory Respiratory exam: Present rhonchi and wheezes; Absent accessory muscle use and respiratory distress Cardiovascular Cardiovascular exam: Present normal rate and rhythm; Absent JVD GI/Abdominal GI/Abdominal exam: Present normal bowel sounds and soft; Absent organomegaly and tenderness Rectal Rectal exam: Present deferred Extremities Exam Extremities exam: Present full ROM, normal capillary refill and normal inspection; Absent tenderness Neurological Exam Neurological exam: Present alert, CN II-XII intact and oriented X3; Absent motor sensory deficit Psychiatric Psychiatric exam: Present normal affect and normal mood; Absent anxious and depressed Skin Skin exam: Present dry and intact Discharge Data Data Completed and Pending Labs on day of discharge: Labs from last 24 hours 12/05/20 12/05/20 12/05/20 05:46 05:46 05:46 WBC 13.5 H RBC 4.90 Hgb 15.8 Hct 48.3 MCV 98.6 MCH 32.2 MCHC 32.7 RDW 12.7 Plt Count 276 MPV 10.9 H Neut % (Auto) 82.3 H Lymph % (Auto) 10.8 L Barbour % (Auto) 6.8 Eos % (Auto) 0 Baso % (Auto) 0.1 Lymph # (Auto) 1.46 L [place]bour # (Auto) 0.92 H Eos # (Auto) 0 Baso # (Auto) 0.02 Absolute Neutrophils 11.11 H Sodium 137 Potassium 4.6 Chloride 96 Carbon Dioxide 32 H Anion Gap 9.0 BUN 20 Creatinine 0.6 L GFR Calculation 114 Glucose 97 Calcium 8.9 Total Bilirubin 0.2 AST 21 ALT 29 Alkaline Phosphatase 87 C-Reactive Protein 1.20 H Total Protein 6.3 Albumin 3.1 L Globulin 3.2 Albumin/Globulin Ratio 1.0 Discharge Plan Patient/Caregiver Discharge Instructions Activity: increase activity as tolerated Diet: Regular Diet Activity Restrictions/Additional Instructions: RT for home oxygen evaluation. Follow-up with dentist 3 to 10 days. Prescriptions: New chlorhexidine gluconate [Peridex] 118 ML mouthwash 15 ml MM BID Qty: 118 RF: 0 amoxicillin-pot clavulanate 875-125 mg Tablet 875 mg PO BIDCC 7 Days Qty: 13 RF: 0 (DME) Hydrocodone/Apap 5/325mg [Mccamey 5/325mg] See Rx Instructions .Route .MEDSUPPLY Qty: 1 RF: 0 Continued ipratropium bromide [Atrovent HFA] 2 puff inhalation PRN PRN (Reason: Shortness Of Breath Or Wheezing) RF: 0 venlafaxine 75 mg capsule,extended release 24hr 75 mg PO QDAY Qty: 30 RF: 1 furosemide 40 mg tablet See Rx Instructions .ROUTE .COMPLEX RF: 0 metoprolol tartrate 25 mg tablet 25 mg PO BID Qty: 60 RF: 3 albuterol sulfate 90 mcg/actuation HFA aerosol inhaler 2 puff inhalation Q6H PRN (Reason: shortness of breath or wheezing) Qty: 8.5 RF: 3 Trelegy Ellipta 200-62.5-25 mcg blister with device 1 inh inhalation Q24H Qty: 60 RF: 6 potassium chloride 10 mEq tablet extended release 10 meq PO QDAY Qty: 30 RF: 3 nicotine 21 mg/24 hr patch 24 hour 1 patch transdermal Q24H Qty: 14 RF: 0 Follow Up Plan Follow up with: Yamil Perry MD [Primary Care Provider] - Patient Disposition: Home, Self-Care Prognosis: Fair Rehab Potential: Good I certify that the patient requires SNF services: No Overall status at discharge: patient is progressing back to baseline Discharge Orders: Discharge Order (Routine); Ordered 12/05/20 Ordered By: Kenny CALDERÓN VTE Deep Vein Thrombosis/Pulmonary Embolism Present on Admission: No
[2020-12-05] MEDS: REMDESIVIR 100 MG in 0.9 % SODIUM CHLORIDE 250 ML IV SCH (11:03)
--- NOTE | 2020-12-05 16:37 | EKG ---
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
== END 2020-12-05 11:54 | disposition home or self-care (01) | DRG 177 ==
LOC: ED 15:13 → MEDSUR 21:51
PROVIDERS: ADMIT Internal Medicine; ATTEND Internal Medicine

== ENCOUNTER 2021-03-20 10:36 | Inpatient (IN) ==
[2021-03-20] MEDS ORDERED: IPRATROPIUM/ALBUTEROL 3 ML AMPUL.NEB NEB ONE ×2 (10:49→11:25)
--- NOTE | 2021-03-20 10:53 | Emergency Department Note ---
SOB HPI General Chief Complaint: Shortness of Breath/Dyspnea Stated Complaint: shortness of breath, chest pain Time Seen by Provider: 03/20/21 10:52 Source: patient Mode of arrival: wheelchair Limitations: no limitations History of Present Illness HPI Narrative: Narrative: 55-year-old male presents to the emerge department for the third time in 7 days because of difficulty breathing accompanied by back pain which is chronic. Patient has a significant history for COPD. He also has a history for congestive heart failure. He is on 2.5 to 3 L of oxygen at home. He is a smoker though he states he has decreased his intake. On yesterday's visit there was a concern of a possible pneumonia right lower lobe so he was started on azithromycin. Radiologist reviewed the x-ray and read as negative. Patient is taking Lasix every other day for his congestive heart failure. He takes hydrocodone for back pain and sometimes gets Dilaudid. Presently cannot make himself comfortable. He rates his discomfort as a 10 on a 0-to-10 scale. States it is constant. Opiates make it a bit better. No radiation of the sy mptoms into the lower extremities. Not associated with any acute trauma. Past medical history includes COPD, CHF, chronic bronchitis, chronic upper back pain, anxiety. Related Data Home Medications Medication Instructions Recorded Confirmed ipratropium bromide [Atrovent HFA] 2 puff INHALATION PRN PRN 08/25/20 03/20/21 oxygen-air delivery systems 03/11/21 03/20/21 Previous Rx's Medication Instructions Recorded fluticasone fur. 200 mcg-umeclid 1 inh INHALATION Q24H #60 ea 08/18/20 62.5 mcg-vilant 25 mcg inhalat.powder (Trelegy Ellipta) metoprolol tartrate 25 mg tablet 25 mg PO BID #60 tab 08/18/20 nicotine 21 mg/24 hr daily 1 patch TRANSDERMAL Q24H #14 ea 08/18/20 transdermal patch venlafaxine 75 mg capsule,extended 75 mg PO QDAY #30 cap 12/12/20 release 24 hr ipratropium 0.5 mg-albuterol 3 mg 3 ml INHALATION QID #180 ml 12/15/20 (2.5 mg base)/3 mL nebulization soln nebulizers (Altera Nebulizer) #1 ea 12/15/20 albuterol sulfate 90 mcg/actuation 2 puff INHALATION Q6H PRN #8.5 g 01/05/21 aerosol inhaler furosemide 40 mg tablet 40 mg PO Q OTHER DAY #30 tab 01/15/21 potassium chloride 10 mEq 10 meq PO Q OTHER DAY #30 tab 01/15/21 tablet,extended release lidocaine 5 % topical patch 1 patch TOPICAL QDAY PRN #7 ea 03/11/21 (Lidoderm) diazepam 2 mg tablet (Valium) 2 mg PO TID PRN #8 tab 03/19/21 Allergies Allergy/AdvReac Type Severity Reaction Status Date / Time No Known Drug Allergies Allergy Verified 03/20/21 10:40 Review of Systems ROS ROS Narrative: Narrative: Constitutional: Denies fever (Denies) Eyes: Denies eye pain ENT ED: Denies throat pain Cardiovascular: Denies chest pain Respiratory: Reports shortness of breath and wheezes Gastrointestinal: Denies nausea or vomiting Musculoskeletal: Reports back pain (Off and on for 15 years in the upper half of his back. Presently is having another flareup.) Integumentary: Denies rash Neurological: Denies headache Psychiatric: Reports anxiety and other (Tearful when he thinks about his .) Allergic/Immunologic: Denies facial swelling PFSH Narrative Patient History Narrative: Narrative: Medical/Surgical/Family History All Active Problems Back pain (Acute) Acute exacerbation of chronic obstructive pulmonary disease (COPD) (Acute) COPD exacerbation (Acute) Back pain, thoracic (Acute) Pneumonia (Acute) Acute exacerbation of chronic obstructive airways disease (Acute) Bronchitis with bronchospasm (Acute) Back pain of thoracolumbar region (Acute) Pneumonia due to COVID-19 virus (Acute) Acute exacerbation of chronic obstructive pulmonary disease (COPD) (Acute) Fracture of tooth (Acute) Dental caries (Acute) Dental abscess (Acute) GERD (gastroesophageal reflux disease) (Acute) Lung nodules (Acute) Witnessed apneic spells (Chronic) Snoring (Chronic) Hypersomnia (Chronic) Pulmonary hypertension (Chronic) Hypertension (Acute) Exertional shortness of breath (Acute) COPD with acute exacerbation (Acute) Asthma (Acute) Costochondritis (Acute) Portal hypertension (Acute) Heart failure (Acute) PTSD (post-traumatic stress disorder) (Acute) Nightmares (Acute) Emphysema lung (Chronic) Grief (Acute) Tobacco use (Chronic) Medical History Asthma COPD with acute exacerbation Costochondritis Emphysema lung Exertional shortness of breath GERD (gastroesophageal reflux disease) Grief Heart failure Hypersomnia Hypertension Lung nodules Nightmares Portal hypertension PTSD (post-traumatic stress disorder) From dealing w/ 's passing Pulmonary hypertension Snoring Tobacco use Witnessed apneic spells Surgical History H/O left knee surgery Barbed wire was in knee after trauma removal at age 9. No pertinent past surgical history Family History Sister Multiple sclerosis Other No pertinent family history Social History Smoking Status: Current some day smoker Alcohol Intake Frequency: 2+ drinks per day Substance Use: does not use Exam Narrative Narrative: Narrative: General Limitations: no limitations General appearance: Present alert and in distress (Having difficulty breathing along with his back pain) Eye Eye: Absent EOMI Neck Neck: Present normal inspection and trachea midline Respiratory Respiratory: Present respiratory distress, rales/crackles and wheezes Cardiovascular Cardiovascular: Present regular rate and tachycardia Adbominal Abdominal: Present soft and other (Morbidly obese); Absent tenderness Extremities Extremities: Absent pedal edema or pretibial edema Back Back: Present tenderness (Upper back) Neurological Neurological: Present alert and oriented X3 Psychiatric Psychiatric: Present normal affect, normal mood and tearful (When thinking about his ) Skin Skin: Present cool and diaphoretic Course Reevaluation(s) Reevaluation #1: Post neb treatment with albuterol and ipratropium bromide patient continues to have significant wheezes. I will begin a 10 mg albuterol neb treatment. Time: 11:30 Vital Signs Vital signs: Vital Signs Pulse Rate 113 H 03/20/21 10:37 Respiratory Rate 30 H 03/20/21 10:37 Blood Pressure 165/90 03/20/21 10:37 Pulse Oximetry (%) 96 03/20/21 10:37 Pulse Rate 100 H 03/20/21 13:42 Respiratory Rate 20 03/20/21 13:42 Blood Pressure 143/90 03/20/21 13:31 Pulse Oximetry (%) 94 03/20/21 13:42 MDM MDM Narrative Medical decision making narrative: Narrative: Middle-age male with severe history of COPD, chronic bronchitis, and CHF presents the emerge department for the third time in 7 days complaining of difficulty breathing. He also complains of upper back pain where he is having acute exacerbation of his chronic back pain of 15 years duration. On prior visits he has received a Z-Chung for possible lung infection and diazepam for muscle spasms. He is received breathing treatments. In spite of all that he is back here 24 hours later with persistent respiratory distress. Differential diagnosis includes acute pneumonia, acute exacerbation of chronic COPD, bronchitis exacerbation, Covid infection, muscle spasms upper back, other. Patient was noted to have a low pulse ox when he first arrived and was given albuterol nebulized treatment with a unit dose of Atrovent. After this treatment he continued to have significant wheezes anteriorly posteriorly left and right. I ordered a 10 mg albuterol 1 hour neb treatment. Chest x-ray was obtained which was read by the radiologist as showing essentially stable COPD. VBG showed CO2 level of 65. Other blood work is still pending. White count was minimally elevated at 11.3. Hemoglobin 15.8. Mildly elevated at 22. PCO2 elevated at 65.8 on a VBG. Chest x-ray did not show pneumonia but did show the chronic COPD. Patient improved after albuterol nebulized treatment of 1 hour with 10 mg. He also received 40 mg of prednisone p.o. I discussed the case with Dr. Dasilva who is the hospitalist. We discussed the fact that this was the third ER visit in 7 days for the same issue. He has agreed to admit the patient to the hospital for more aggressive treatment for this patient. Lab Data Result diagrams: 03/20/21 12:43 03/20/21 10:55 Labs: Lab Results 03/20/21 03/20/21 03/20/21 Range/Units 10:55 10:55 10:55 WBC TNP RBC TNP Hgb TNP Hct TNP MCV TNP MCH TNP MCHC TNP RDW TNP Plt Count TNP MPV TNP Neut % (Auto) TNP Lymph % (Auto) TNP Kendall % (Auto) TNP Eos % (Auto) TNP Baso % (Auto) TNP Lymph # (Auto) TNP Kendall # (Auto) TNP Eos # (Auto) TNP Baso # (Auto) TNP Absolute Neutrophils TNP Differential Comment TNP D-Dimer 0.36 (0.27-0.50) ug/mL ABG Methemoglobin (0.4-1.5) % VBG pH (7.32-7.42) U VBG pCO2 (41.0-51.0) mmHg VBG pO2 (25.0-40.0) mmHg VBG HCO3 (24.0-28.0) mmol/L VBG Total CO2 (25.0-29.0) mmol/L VBG O2 Saturation (40.0-70.0) % VBG Base Excess (-2-2) Carboxyhemoglobin (0.0-1.5) % THgb Total Hemoglobin (13.5-16.5) gm/Dl Sodium 142 (133-145) mmol/L Potassium 4.1 (3.3-5.1) mmol/L Chloride 100 (96-108) mmol/L Carbon Dioxide 30 (22-30) mmol/L Anion Gap 12.0 (8.0-16.0) BUN 23 H (6-20) mg/dL Creatinine 0.9 (0.7-1.2) mg/dL GFR Calculation 96 Glucose 94 (70-105) mg/dL Calcium 8.9 (8.6-10.4) mg/dL Total Bilirubin 0.2 (0.1-1.0) mg/dL AST 18 (<40) U/L ALT 27 (<40) U/L Alkaline Phosphatase 113 (39-117) U/L Total Protein 7.2 (5.9-8.4) gm/dL Albumin 4.1 (3.2-5.2) gm/dL Globulin 3.1 (2.2-3.7) gm/dL Albumin/Globulin Ratio 1.3 (1.0-2.3) 03/20/21 03/20/21 Range/Units 11:25 12:43 WBC 11.3 H RBC 4.88 Hgb 15.8 Hct 48.5 MCV 99.4 MCH 32.4 MCHC 32.6 RDW 12.0 Plt Count 320 MPV 9.6 Neut % (Auto) 58.2 Lymph % (Auto) 28.4 Kendall % (Auto) 8.7 Eos % (Auto) 3.8 Baso % (Auto) 0.9 Lymph # (Auto) 3.20 Kendall # (Auto) 0.98 H Eos # (Auto) 0.43 Baso # (Auto) 0.10 Absolute Neutrophils 6.57 Differential Comment D-Dimer (0.27-0.50) ug/mL ABG Methemoglobin 0.3 L (0.4-1.5) % VBG pH 7.33 (7.32-7.42) U VBG pCO2 65.8 H* (41.0-51.0) mmHg VBG pO2 40.9 H (25.0-40.0) mmHg VBG HCO3 33.8 H (24.0-28.0) mmol/L VBG Total CO2 35.8 H (25.0-29.0) mmol/L VBG O2 Saturation 65.3 (40.0-70.0) % VBG Base Excess 5 H (-2-2) Carboxyhemoglobin 8.1 H (0.0-1.5) % THgb Total Hemoglobin 15.8 (13.5-16.5) gm/Dl Sodium (133-145) mmol/L Potassium (3.3-5.1) mmol/L Chloride (96-108) mmol/L Carbon Dioxide (22-30) mmol/L Anion Gap (8.0-16.0) BUN (6-20) mg/dL Creatinine (0.7-1.2) mg/dL GFR Calculation Glucose (70-105) mg/dL Calcium (8.6-10.4) mg/dL Total Bilirubin (0.1-1.0) mg/dL AST (<40) U/L ALT (<40) U/L Alkaline Phosphatase (39-117) U/L Total Protein (5.9-8.4) gm/dL Albumin (3.2-5.2) gm/dL Globulin (2.2-3.7) gm/dL Albumin/Globulin Ratio (1.0-2.3) ED POC Tests ED POC Tests: MARILEE - SARS Antigen Negative Discharge Plan Patient/Caregiver Discharge Instructions Pt seen by [facility]/PA only: No Clinical Impression: Acute exacerbation of chronic obstructive airways disease, Bronchitis with bronchospasm Activity: as instructed Patient Disposition: Xfer As Inpt ([facility]) Condition: Fair Follow up with: Yamil Perry MD [Primary Care Provider] - Prescriptions: No Action venlafaxine 75 mg capsule,extended release 24hr 75 mg PO QDAY Qty: 30 2RF albuterol sulfate 90 mcg/actuation HFA aerosol inhaler 2 puff inhalation Q6H PRN (Reason: shortness of breath or wheezing) Qty: 8.5 3RF furosemide 40 mg tablet 40 mg PO Q OTHER DAY Qty: 30 1RF potassium chloride 10 mEq tablet extended release 10 meq PO Q OTHER DAY Qty: 30 1RF Rx Instructions: take w/ lasix ipratropium bromide [Atrovent HFA] 2 puff inhalation PRN PRN (Reason: Shortness Of Breath Or Wheezing) 0RF Rx Instructions: see inst. (DME) Altera Nebulizer Misc See Rx Instructions .Route Qty: 1 0RF Rx Instructions: As directed ipratropium-albuterol 0.5 mg-3 mg(2.5 mg base)/3 mL solution for nebulization 3 ml inhalation QID Qty: 180 3RF metoprolol tartrate 25 mg tablet 25 mg PO BID Qty: 60 3RF Trelegy Ellipta 200-62.5-25 mcg blister with device 1 inh inhalation Q24H Qty: 60 6RF nicotine 21 mg/24 hr patch 24 hour 1 patch transdermal Q24H Qty: 14 0RF (DME) oxygen-air delivery systems 0RF lidocaine [Lidoderm] 5 % adhesive patch,medicated 1 patch topical QDAY PRN (Reason: pain) Qty: 7 0RF Rx Instructions: leave on most painful area for up to 12 hrs diazepam [Valium] 2 mg tablet 2 mg PO TID PRN (Reason: muscle spasm) Qty: 8 0RF
[2021-03-20] MEDS ORDERED: HYDROmorphone 0.5 MG/0.5 ML SYRINGE IV ONE (11:11)
[2021-03-20] MEDS ORDERED: ONDANSETRON 4 MG/2 ML VIAL IV ONE (11:11)
[2021-03-20] MEDS ORDERED: ALBUTEROL SULFATE 5 MG/ML NEB SOLUTION BOTTLE NEB ONE (11:32)
--- NOTE | 2021-03-20 11:51 | XRay Report ---
HISTORY: Dyspnea, COPD, chest pain FINDINGS: Pleural and parenchymal scarring are again seen in the right upper lobe. There is mild upward retraction of the right hilum. Numerous small calcified granulomata are present in the right lung with fewer in the left lung. There is no acute infiltrate and no suspicious mass is detected. No pleural effusion is present. The heart size is normal. Comparison with the prior exam from 03/19/21 shows no change. IMPRESSION: Stable parenchymal scarring and old granulomatous disease. Interpreted and Authenticated by: Felix Cui 03/20/21
[2021-03-20 12:00] LABS: ABG Methemoglobin 0.3 % (0.4-1.5); Total Hemoglobin 15.8 gm/Dl (13.5-16.5); VBG Base Excess 5 (-2-2); VBG HCO3 33.8 mmol/L (24.0-28.0); VBG Oxygen Saturation 65.3 % (40.0-70.0); VBG PCO2 65.8 mmHg (41.0-51.0); VBG PH 7.33 U (7.32-7.42); VBG PO2 40.9 mmHg (25.0-40.0); VBG Total CO2 35.8 mmol/L (25.0-29.0)
[2021-03-20 12:13] LABS: ALT/SGPT 27 U/L (<40); AST/SGOT 18 U/L (<40); Albumin 4.1 gm/dL (3.2-5.2); Albumin/Globulin Ratio 1.3 (1.0-2.3); Alkaline Phosphatase 113 U/L (39-117); Bilirubin,Total 0.2 mg/dL (0.1-1.0); Blood Urea Nitrogen 23 mg/dL (6-20); Calcium 8.9 mg/dL (8.6-10.4); Carbon Dioxide 30 mmol/L (22-30); Chloride 100 mmol/L (96-108); Globulin 3.1 gm/dL (2.2-3.7); Glomerular Filtration Rate 96; Glucose 94 mg/dL (70-105)
[2021-03-20] MEDS ORDERED: predniSONE 20 MG TABLET PO ONE (12:28)
[2021-03-20 13:23] LABS: Basophils % (Auto) 0.9 % (0.0-2.0); Eosinophils # (Auto) 0.43 K/mcL (0.00-0.70); Eosinophils % (Auto) 3.8 % (0.0-7.0); Hematocrit 48.5 % (40.1-51.0); Hemoglobin 15.8 g/dL (13.7-17.5); Lymphocytes % (Auto) 28.4 % (15.5-49.0); Mean Cell Volume 99.4 fL (80.0-100.0); Mean Corpuscular HGB Conc 32.6 g/dL (31.0-36.0); Mean Platelet Volume 9.6 fL (7.4-10.4); Monocytes # (Auto) 0.98 K/mcL (0.10-0.90); Monocytes % (Auto) 8.7 % (1.0-12.0); Neutrophils % (Auto) 58.2 % (38.0-78.0); Platelet Count 320 K/mcL (140-440); RBC 4.88 M/mcL (4.63-6.08); WBC 11.3 K/mcL (4.5-11.0)
[2021-03-20] MEDS ORDERED: methylPREDNISolone SOD SUCC 125 MG/2 ML VIAL IV ONE (14:04)
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
[2021-03-20] MEDS ORDERED: LIDOCAINE PATCH TOPICAL PRN (14:55)
[2021-03-20] MEDS ORDERED: IPRATROPIUM/ALBUTEROL 3 ML AMPUL.NEB NEB PRN (14:55)
[2021-03-20] MEDS ORDERED: SENNOSIDES 1 TABLET PO PRN (14:55)
[2021-03-20] MEDS ORDERED: DEXTROSE 31 GM ORAL.SUSP PO PRN (14:55)
[2021-03-20] MEDS ORDERED: DEXTROSE 50% 50 ML VIAL IV PRN (14:55)
[2021-03-20] MEDS ORDERED: MAGNESIUM SULFATE 2 GM/50 ML BAG IV PRN (14:55)
[2021-03-20] MEDS ORDERED: METOCLOPRAMIDE 10 MG/2 ML VIAL IV PRN (14:55)
[2021-03-20] MEDS ORDERED: POLYETHYLENE GLYCOL 3350 17 GM PACKET PO PRN (14:55)
[2021-03-20] MEDS ORDERED: POTASSIUM CHLORIDE 40 MEQ in DEXTROSE 5% IN WATER 500 ML IV PRN (14:55)
[2021-03-20] MEDS ORDERED: POTASSIUM CHLORIDE 20 MEQ TABLET PO PRN ×2 (14:55)
[2021-03-20] MEDS ORDERED: ONDANSETRON 4 MG/2 ML VIAL IV PRN (14:55)
[2021-03-20] MEDS: NICOTINE 21 MG PATCH TOPICAL SCH (16:18)
[2021-03-20] MEDS: AZITHROMYCIN 500 MG in DEXTROSE 5% IN WATER 250 ML IV SCH (16:19)
[2021-03-20] MEDS: INSULIN LISPRO 1 UNIT/0.01 ML UNIT SQ SCH ×2 (16:40→21:49)
[2021-03-20 18:22] LABS: ABG Methemoglobin 0.1 % (0.4-1.5); Total Hemoglobin 16.7 gm/Dl (13.5-16.5); VBG Base Excess 2 (-2-2); VBG HCO3 30.6 mmol/L (24.0-28.0); VBG Oxygen Saturation 79.4 % (40.0-70.0); VBG PCO2 64.5 mmHg (41.0-51.0); VBG PH 7.29 U (7.32-7.42); VBG PO2 53.7 mmHg (25.0-40.0); VBG Total CO2 32.6 mmol/L (25.0-29.0)
[2021-03-20] MEDS: IPRATROPIUM/ALBUTEROL 3 ML AMPUL.NEB NEB SCH (19:14)
[2021-03-20] MEDS: ENOXAPARIN 30 MG/0.3 ML SYRINGE SQ SCH (21:05)
[2021-03-20] MEDS: METOPROLOL TARTRATE 25 MG TABLET PO SCH (21:05)
[2021-03-20] MEDS: methylPREDNISolone SOD SUCC 125 MG/2 ML VIAL IV SCH (21:48)
[2021-03-20] MEDS: 0.9 % SODIUM CHLORIDE 10 ML SYRINGE IV SCH (21:52)
[2021-03-20] MEDS: BUDESONIDE 0.5 MG/2 ML AMPUL.NEB NEB SCH (23:30)
[2021-03-21] MEDS: DIAZEPAM 2 MG TABLET PO PRN ×2 (00:03→11:06)
[2021-03-21] MEDS: IPRATROPIUM/ALBUTEROL 3 ML AMPUL.NEB NEB SCH ×4 (00:56→20:10)
[2021-03-21] MEDS: methylPREDNISolone SOD SUCC 125 MG/2 ML VIAL IV SCH ×3 (05:34→21:06)
[2021-03-21] MEDS: 0.9 % SODIUM CHLORIDE 10 ML SYRINGE IV SCH ×3 (05:37→21:06)
--- NOTE | 2021-03-21 07:26 | Internal Med Progress Note ---
SUBJECTIVE Subjective Patient information: Note initiated : 03/21/21 at 7:22 am Service Date, if different from initiated Date: [] Patient: Min Hoang a 55 y/o M admitted on 03/20/21 for shortness of breath, chest pain. Chief Complaint: [] Interval history: chief Complaint: [] History of present illness: Mr. Hoang is a 55 year old M Presents to the ED for the third time since the for shortness of breath. Diagnosis COPD exacerbation Is on 2-3 L of oxygen at home, don't think he wears it all the time. In triage he appeared quite labored and wheezing. Oxygen saturations were mid 80s on room air. Chest x-ray unremarkable for acute but has chronic changes. Patient denies chest pain but has occasional cough and shortness of breath. Patient quite lethargic. VBG with CO2 retention. He is still smoking a few cigarettes per day. 03/21 Patient on BiPAP overnight. Patient awake and feeling much better. Minimal cough. Runs of breath improving. Review of Systems: denies headache/fever/chills/nausea/vomiting/chest or abdominal pain/diarrhea. Otherwise see above. Constitutional Vitals: Vital Signs Temp Pulse Resp BP Pulse Ox 97.2 F 80 15 130/92 93 03/21/21 04:00 03/21/21 06:00 03/21/21 06:00 03/21/21 06:00 03/21/21 06:00 Period Temp Pulse Resp BP Sys/Garcia Pulse Ox Last 24 Hr 96.7 F-98.6 F 76-113 12-36 116-166/76-146 86-100 Intake and Output 03/20/21 03/21/21 03/21/21 21:59 05:59 13:59 Intake Total 250 220 Output Total 500 Balance -250 220 Weight 82.781 kg Intake & Output: Intake & Output 03/20/21 03/21/21 03/21/21 21:59 05:59 13:59 Intake Total 250 220 Output Total 500 Balance -250 220 Weight 82.781 kg Intake: IV 250 Zithromax 500 mg In Dextrose 5% 250 in Water 250 ml @ 250 mls/hr IV DAILY@1100 [facility] Rx#:[id number] Oral 220 Output: Void Amount 500 Other: Meal Snack Percent of Meal Consumed 100% Feeding Ability Independent Urine Appearance Clear Urine Color Bright Yellow Exam: General: Awake, No acute Distress, obese Eyes/N/T: EOMI, Head/Neck: neck supple, CV: RRR, No murmurs, Pulm: Diminished b/l but much better today, no wheezing today, prolonged expiratory phase Abd: soft, nontender, +BS x4 Ext: no clubbing/cyanosis, 1+ b/l LE edema Neuro: alert, no focal deficits, moves all extremities, Skin: warm/dry OBJ DATA Labs CBC & Chem 7: 03/20/21 12:43 03/20/21 10:55 Labs: Abnormal Lab Results 03/20/21 03/20/21 03/20/21 18:00 12:43 11:25 WBC 11.3 H [place] # (Auto) 0.98 H ABG Methemoglobin 0.1 L 0.3 L VBG pH 7.29 L VBG pCO2 64.5 H* 65.8 H* VBG pO2 53.7 H 40.9 H VBG HCO3 30.6 H 33.8 H VBG Total CO2 32.6 H 35.8 H VBG O2 Saturation 79.4 H VBG Base Excess 5 H Carboxyhemoglobin 5.8 H 8.1 H Total Hemoglobin 16.7 H BUN Procalcitonin 03/20/21 03/20/21 10:55 10:55 WBC [place] # (Auto) ABG Methemoglobin VBG pH VBG pCO2 VBG pO2 VBG HCO3 VBG Total CO2 VBG O2 Saturation VBG Base Excess Carboxyhemoglobin Total Hemoglobin BUN 23 H Procalcitonin 0.78 H Meds: Medications Acetaminophen (Acetaminophen 325 Mg Tablet) 650 mg PO Q6HP PRN; Protocol PRN Reason: Per Pain Protocol/Fever > 101 Albuterol/Ipratropium (Ipratropium/Albuterol 3 Ml Ampul.Neb) 3 ml NEB Q4HP PRN PRN Reason: Shortness Of Breath Albuterol/Ipratropium (Ipratropium/Albuterol 3 Ml Ampul.Neb) 3 ml NEB Q6HRT [place] Last Admin: 03/21/21 00:56 Dose: 3 ml Documented by: Budesonide (Budesonide 0.5 Mg/2 Ml Ampul.Neb) 0.5 mg NEB Q12 [place] Last Admin: 03/20/21 23:30 Dose: 0.5 mg Documented by: Dextrose (Dextrose 50% 50 Ml Vial) 0 ml IV UD PRN PRN Reason: Hypoglycemia Diagnostic Test (Pha) (Accu-Chek 1 Each Strip) 1 each FS ACHS [facility] Last Admin: 03/20/21 21:50 Dose: 1 each Documented by: Diazepam (Diazepam 2 Mg Tablet) 2 mg PO TIDP PRN PRN Reason: muscle spasm Last Admin: 03/21/21 00:03 Dose: 2 mg Documented by: Enoxaparin Sodium (Enoxaparin 30 Mg/0.3 Ml Syringe) 30 mg SQ BID [facility] Last Admin: 03/20/21 21:05 Dose: 30 mg Documented by: Furosemide (Furosemide 40 Mg Tablet) 40 mg PO Q48H [facility] Glucose (Dextrose 31 Gm Oral.Susp) 15 gm PO PRN PRN PRN Reason: Hypoglycemia Potassium Chloride 40 meq/ (Dextrose) 520 mls @ 130 mls/hr IV UD PRN PRN Reason: Potassium < 3 Magnesium Sulfate (Magnesium Sulfate) 2 gm in 50 mls @ 50 mls/hr IV UD PRN PRN Reason: Magnesium </= 1.6 Azithromycin 500 mg/ Dextrose 250 mls @ 250 mls/hr IV DAILY@1100 [facility]; Protocol Stop: 03/22/21 11:59 Last Infusion: 03/20/21 18:16 Dose: Infused Documented by: Insulin Human Lispro (Insulin Lispro 1 Unit/0.01 Ml Unit) 0 unit SQ [facility]; Protocol Last Admin: 03/20/21 21:49 Dose: Not Given Documented by: Lidocaine (Lidocaine Patch) 1 patch TOPICAL DAILYP PRN PRN Reason: Pain Methylprednisolone Sodium Succinate (Methylprednisolone Sod Succ 125 Mg/2 Ml Vial) 62.5 mg IV Q8 [facility] Last Admin: 03/21/21 05:34 Dose: 62.5 mg Documented by: Metoclopramide HCl (Metoclopramide 10 Mg/2 Ml Vial) 10 mg IV Q6HP PRN PRN Reason: Nausea And Vomiting Metoprolol Tartrate (Metoprolol Tartrate 25 Mg Tablet) 25 mg PO BID [facility] Last Admin: 03/20/21 21:05 Dose: 25 mg Documented by: Nicotine (Nicotine 21 Mg Patch) 21 mg TOPICAL DAILY [facility] Last Admin: 03/20/21 16:18 Dose: 21 mg Documented by: Ondansetron HCl (Ondansetron 4 Mg/2 Ml Vial) 4 mg IV Q4HP PRN PRN Reason: Nausea And Vomiting Polyethylene Glycol (Polyethylene Glycol 3350 17 Gm Packet) 17 gm PO DAILYP PRN PRN Reason: Constipation Potassium Chloride (Potassium Chloride 10 Meq Tablet) 10 meq PO Q48H [place] Potassium Chloride (Potassium Chloride 20 Meq Tablet) 40 meq PO UD PRN PRN Reason: Potssium is 3-3.5 Potassium Chloride (Potassium Chloride 20 Meq Tablet) 40 meq PO UD PRN PRN Reason: Potassium < 3 Senna (Sennosides 1 Tablet) 2 tab PO DAILYP PRN PRN Reason: Constipation Sodium Chloride (0.9 % Sodium Chloride 10 Ml Syringe) 10 ml IV Q8 [place] Last Admin: 03/21/21 05:37 Dose: 10 ml Documented by: Venlafaxine HCl (Venlafaxine 75 Mg Cap.Xl.24h) 75 mg PO QDAY [place] ABG Interpretation ABG results: 03/20/21 03/20/21 11:25 18:00 ABG Methemoglobin 0.3 L 0.1 L VBG pH 7.33 7.29 L VBG pCO2 65.8 H* 64.5 H* VBG pO2 40.9 H 53.7 H VBG HCO3 33.8 H 30.6 H VBG Total CO2 35.8 H 32.6 H VBG O2 Saturation 65.3 79.4 H VBG Base Excess 5 H 2 A/P Narrative A/P Narrative: A: *AECOPD(2-3L O2@home): 2/2 above -RVP neg, pct elevated *Acute on chronic hypoxic/hypercapnic respiratory failure: -bipap o/n *Encephalopathy (lethargy): 2/2 above -improved *HTN: *PTSD: *Tobacco abuse: *Obesity: P: -glucocorticoids(wean), azithro -IS/Acapella, darling and prn nebs -bipap off today, f/u VBG -cont home BB/lasix -Smoking cessation counseling -ppx: lovenox Time Spent With Patient Time: Total time spent is greater than 50% in coordination of care (as documented) at patient's floor/unit and/or counseling patient: QUALITY VTE Deep Vein Thrombosis/Pulmonary Embolism Present on Admission: No
[2021-03-21 08:04] LABS: Hematocrit 49.7 % (40.1-51.0); Hemoglobin 16.5 g/dL (13.7-17.5); Mean Cell Volume 97.3 fL (80.0-100.0); Mean Corpuscular HGB Conc 33.2 g/dL (31.0-36.0); Mean Platelet Volume 9.8 fL (7.4-10.4); Platelet Count 354 K/mcL (140-440); RBC 5.11 M/mcL (4.63-6.08); Red Cell Distribution Width 11.6 % (11.5-14.5); WBC 18.6 K/mcL (4.5-11.0)
[2021-03-21] MEDS: BUDESONIDE 0.5 MG/2 ML AMPUL.NEB NEB SCH ×2 (08:14→20:10)
[2021-03-21 08:31] LABS: ABG Methemoglobin 0 % (0.4-1.5); Total Hemoglobin 16.2 gm/Dl (13.5-16.5); VBG Base Excess 7 (-2-2); VBG Oxygen Saturation 92.8 % (40.0-70.0); VBG PCO2 55.2 mmHg (41.0-51.0); VBG PH 7.41 U (7.32-7.42); VBG Total CO2 35.7 mmol/L (25.0-29.0)
[2021-03-21 08:39] LABS: Band Neutrophils % 4 % (0-10); Lymphocytes % 6 % (15-49); Monocytes % (Manual) 3 % (1-12); Platelet Estimate NORMAL (Normal); RBC Morphology NORMAL (Normal); Segmented Neutrophils % 87 % (38-78)
[2021-03-21] MEDS: INSULIN LISPRO 1 UNIT/0.01 ML UNIT SQ SCH ×4 (08:41→21:05)
[2021-03-21] MEDS ORDERED: POTASSIUM CHLORIDE 10 MEQ TABLET PO SCH (09:00)
[2021-03-21] MEDS ORDERED: FUROSEMIDE 40 MG TABLET PO SCH (09:00)
--- NOTE | 2021-03-21 09:00 | Discharge Summary ---
Discharge Provider Provider Patient information: Note initiated : 03/21/21 at 9:00 am Service Date, if different from initiated Date: [] Patient: Min Hoang 55 y/o M admitted on 03/20/21 for shortness of breath, chest pain. Chief Complaint: [] Date of admission: 03/20/21 14:36 Primary care physician: Yamil Perry MD Consults: 03/20/21 Consult to Physician [CONS] Stat Comment: Consulting Provider: Ho Dasilva Reason For Exam: Physician to Consult Discharge Meds Discharge Medications Home Medications fluticasone fur. 200 mcg-umeclid 62.5 mcg-vilant 25 mcg inhalat.powder (Trelegy Ellipta) 1 inh INHALATION Q24H #60 ea 08/18/20 [Rx Confirmed 03/21/21 Last Taken 03/20/21] metoprolol tartrate 25 mg tablet 25 mg PO BID #60 tab 08/18/20 [Rx Confirmed 03/21/21 Last Taken 03/20/21] ipratropium bromide [Atrovent HFA] 2 puff INHALATION PRN PRN 08/25/20 [History Confirmed 03/20/21 Last Taken Unknown] venlafaxine 75 mg capsule,extended release 24 hr 75 mg PO QDAY #30 cap 12/12/20 [Rx Confirmed 03/21/21 Last Taken 03/20/21] ipratropium 0.5 mg-albuterol 3 mg (2.5 mg base)/3 mL nebulization soln 3 ml INHALATION QID #180 ml 12/15/20 [Rx Confirmed 03/21/21 Last Taken 03/20/21] nebulizers (Altera Nebulizer) #1 ea 12/15/20 [Rx Confirmed 03/20/21 Last Taken Unknown] albuterol sulfate 90 mcg/actuation aerosol inhaler 2 puff INHALATION Q6H PRN #8.5 g 01/05/21 [Rx Confirmed 03/20/21 Last Taken 03/10/21] furosemide 40 mg tablet 40 mg PO Q OTHER DAY #30 tab 01/15/21 [Rx Confirmed 03/21/21 Last Taken 03/20/21] potassium chloride 10 mEq tablet,extended release 10 meq PO Q OTHER DAY #30 tab 01/15/21 [Rx Confirmed 03/21/21 Last Taken 03/20/21] lidocaine 5 % topical patch (Lidoderm) 1 patch TOPICAL QDAY PRN #7 ea 03/11/21 [Rx Confirmed 03/20/21 Last Taken Unknown] oxygen-air delivery systems 03/11/21 [History Confirmed 03/20/21 Last Taken Unknown] diazepam 2 mg tablet (Valium) 2 mg PO TID PRN #8 tab 03/19/21 [Rx Confirmed 03/20/21 Last Taken Unknown] azithromycin 500 mg tablet 500 mg PO QDAY 03/20/21 [History Confirmed 03/21/21 Last Taken 03/20/21] prednisone 10 mg tablet 40 mg PO QDAY #1 tab 03/21/21 [Rx Last Taken Unknown] COURSE Hospital Course Hospital course: History of present illness: Mr. Hoang is a 55 year old M Presents to the ED for the third time since the for shortness of breath. Diagnosis COPD exacerbation Is on 2-3 L of oxygen at home, don't think he wears it all the time. In triage he appeared quite labored and wheezing. Oxygen saturations were mid 80s on room air. Chest x-ray unremarkable for acute but has chronic changes. Patient denies chest pain but has occasional cough and shortness of breath. Patient quite lethargic. VBG with CO2 retention. He is still smoking a few cigarettes per day. 03/21 Patient on BiPAP overnight. Patient awake and feeling much better. Minimal cough. Runs of breath improving. A: *AECOPD(2-3L O2@home): 2/2 above -RVP neg, pct elevated *Acute on chronic hypoxic/hypercapnic respiratory failure: -bipap o/n *Encephalopathy (lethargy): 2/2 above -improved *HTN: *PTSD: *Tobacco abuse: *Obesity: Discharge diagnosis: COPD exacerbation acute on chronic hypoxic hypercapnic respiratory failure Secondary discharge diagnosis: Encephalopathy hypertension PTSD tobacco abuse obesity Time Spent with Patient Time attestation: Total time spent providing and/or coordinating discharge services: Time spent: Greater than 30 minutes EXAM Constitutional Vitals: Temp Pulse Resp BP Pulse Ox 97.5 F 106 H 15 130/84 91 03/21/21 08:00 03/21/21 08:16 03/21/21 08:16 03/21/21 08:00 03/21/21 08:16 Discharge Data Data Completed and Pending Labs on day of discharge: Labs from last 24 hours 03/21/21 03/21/21 03/21/21 08:02 05:15 05:15 WBC 18.6 H RBC 5.11 Hgb 16.5 Hct 49.7 MCV 97.3 MCH 32.3 MCHC 33.2 RDW 11.6 Plt Count 354 MPV 9.8 Neut % (Auto) Lymph % (Auto) [place] % (Auto) Eos % (Auto) Baso % (Auto) Lymph # (Auto) [place] # (Auto) Eos # (Auto) Baso # (Auto) Seg Neutrophils % 87 H Band Neutrophils % 4 Lymphocytes % 6 L Monocytes % (Manual) 3 Absolute Neutrophils Differential Comment Platelet Estimate Normal RBC Morphology Normal D-Dimer ABG Methemoglobin 0 L VBG pH 7.41 VBG pCO2 55.2 H VBG pO2 97.0 H VBG HCO3 34.0 H VBG Total CO2 35.7 H VBG O2 Saturation 92.8 H VBG Base Excess 7 H Carboxyhemoglobin 5.2 H Total Hemoglobin 16.2 Sodium Pending Potassium Pending Chloride Pending Carbon Dioxide Pending Anion Gap Pending BUN Pending Creatinine Pending GFR Calculation Pending Glucose Pending Uric Acid Pending Calcium Pending Phosphorus Pending Magnesium Pending Total Bilirubin Pending Direct Bilirubin Pending GGT Pending AST Pending ALT Pending Alkaline Phosphatase Pending Lactate Dehydrogenase Pending Total Protein Pending Albumin Pending Globulin Pending Albumin/Globulin Ratio Pending Triglycerides Pending Procalcitonin 03/21/21 03/20/21 03/20/21 05:14 18:00 12:43 WBC 11.3 H RBC 4.88 Hgb 15.8 Hct 48.5 MCV 99.4 MCH 32.4 MCHC 32.6 RDW 12.0 Plt Count 320 MPV 9.6 Neut % (Auto) 58.2 Lymph % (Auto) 28.4 [place] % (Auto) 8.7 Eos % (Auto) 3.8 Baso % (Auto) 0.9 Lymph # (Auto) 3.20 [place] # (Auto) 0.98 H Eos # (Auto) 0.43 Baso # (Auto) 0.10 Seg Neutrophils % Band Neutrophils % Lymphocytes % Monocytes % (Manual) Absolute Neutrophils 6.57 Differential Comment Platelet Estimate RBC Morphology D-Dimer ABG Methemoglobin 0.1 L VBG pH 7.29 L VBG pCO2 64.5 H* VBG pO2 53.7 H VBG HCO3 30.6 H VBG Total CO2 32.6 H VBG O2 Saturation 79.4 H VBG Base Excess 2 Carboxyhemoglobin 5.8 H Total Hemoglobin 16.7 H Sodium Potassium Chloride Carbon Dioxide Anion Gap BUN Creatinine GFR Calculation Glucose Uric Acid Calcium Phosphorus Magnesium Total Bilirubin Direct Bilirubin GGT AST ALT Alkaline Phosphatase Lactate Dehydrogenase Total Protein Albumin Globulin Albumin/Globulin Ratio Triglycerides Procalcitonin 0.07 03/20/21 03/20/21 03/20/21 11:25 10:55 10:55 WBC RBC Hgb Hct MCV MCH MCHC RDW Plt Count MPV Neut % (Auto) Lymph % (Auto) [place] % (Auto) Eos % (Auto) Baso % (Auto) Lymph # (Auto) [place] # (Auto) Eos # (Auto) Baso # (Auto) Seg Neutrophils % Band Neutrophils % Lymphocytes % Monocytes % (Manual) Absolute Neutrophils Differential Comment Platelet Estimate RBC Morphology D-Dimer 0.36 ABG Methemoglobin 0.3 L VBG pH 7.33 VBG pCO2 65.8 H* VBG pO2 40.9 H VBG HCO3 33.8 H VBG Total CO2 35.8 H VBG O2 Saturation 65.3 VBG Base Excess 5 H Carboxyhemoglobin 8.1 H Total Hemoglobin 15.8 Sodium Potassium Chloride Carbon Dioxide Anion Gap BUN Creatinine GFR Calculation Glucose Uric Acid Calcium Phosphorus Magnesium Total Bilirubin Direct Bilirubin GGT AST ALT Alkaline Phosphatase Lactate Dehydrogenase Total Protein Albumin Globulin Albumin/Globulin Ratio Triglycerides Procalcitonin 0.78 H 03/20/21 03/20/21 10:55 10:55 WBC TNP RBC TNP Hgb TNP Hct TNP MCV TNP MCH TNP MCHC TNP RDW TNP Plt Count TNP MPV TNP Neut % (Auto) TNP Lymph % (Auto) TNP [place] % (Auto) TNP Eos % (Auto) TNP Baso % (Auto) TNP Lymph # (Auto) TNP [place] # (Auto) TNP Eos # (Auto) TNP Baso # (Auto) TNP Seg Neutrophils % Band Neutrophils % Lymphocytes % Monocytes % (Manual) Absolute Neutrophils TNP Differential Comment TNP Platelet Estimate RBC Morphology D-Dimer ABG Methemoglobin VBG pH VBG pCO2 VBG pO2 VBG HCO3 VBG Total CO2 VBG O2 Saturation VBG Base Excess Carboxyhemoglobin Total Hemoglobin Sodium 142 Potassium 4.1 Chloride 100 Carbon Dioxide 30 Anion Gap 12.0 BUN 23 H Creatinine 0.9 GFR Calculation 96 Glucose 94 Uric Acid Calcium 8.9 Phosphorus Magnesium Total Bilirubin 0.2 Direct Bilirubin GGT AST 18 ALT 27 Alkaline Phosphatase 113 Lactate Dehydrogenase Total Protein 7.2 Albumin 4.1 Globulin 3.1 Albumin/Globulin Ratio 1.3 Triglycerides Procalcitonin Discharge Plan Patient/Caregiver Discharge Instructions Activity: increase activity as tolerated and as instructed Diet: Regular Diet Prescriptions: New prednisone 10 mg tablet 40 mg PO QDAY Qty: 1 0RF Rx Instructions: Take 40mg once daily for 3 days then 20mg once daily x3 days then 10mg daily x3 days then 5mg daily x2 days and stop Continued venlafaxine 75 mg capsule,extended release 24hr 75 mg PO QDAY Qty: 30 2RF albuterol sulfate 90 mcg/actuation HFA aerosol inhaler 2 puff inhalation Q6H PRN (Reason: shortness of breath or wheezing) Qty: 8.5 3RF furosemide 40 mg tablet 40 mg PO Q OTHER DAY Qty: 30 1RF potassium chloride 10 mEq tablet extended release 10 meq PO Q OTHER DAY Qty: 30 1RF Rx Instructions: take w/ lasix ipratropium bromide [Atrovent HFA] 2 puff inhalation PRN PRN (Reason: Shortness Of Breath Or Wheezing) 0RF Rx Instructions: see inst. (DME) Altera Nebulizer Misc See Rx Instructions .Route Qty: 1 0RF Rx Instructions: As directed ipratropium-albuterol 0.5 mg-3 mg(2.5 mg base)/3 mL solution for nebulization 3 ml inhalation QID Qty: 180 3RF metoprolol tartrate 25 mg tablet 25 mg PO BID Qty: 60 3RF Trelegy Ellipta 200-62.5-25 mcg blister with device 1 inh inhalation Q24H Qty: 60 6RF (DME) oxygen-air delivery systems 0RF lidocaine [Lidoderm] 5 % adhesive patch,medicated 1 patch topical QDAY PRN (Reason: pain) Qty: 7 0RF Rx Instructions: leave on most painful area for up to 12 hrs diazepam [Valium] 2 mg tablet 2 mg PO TID PRN (Reason: muscle spasm) Qty: 8 0RF azithromycin 500 mg Tablet 500 mg PO QDAY 0RF Rx Instructions: 1 TABLET DAILY FOR 5 DAYS. FILLED ON 03/19/21. Follow Up Plan Follow up with: Yamil Perry MD [Primary Care Provider] - Patient Disposition: Home, Self-Care Prognosis: Fair Overall status at discharge: patient is progressing back to baseline QUALITY VTE Deep Vein Thrombosis/Pulmonary Embolism Present on Admission: No
[2021-03-21] MEDS: VENLAFAXINE 75 MG CAP.XL.24H PO SCH (09:37)
[2021-03-21] MEDS: METOPROLOL TARTRATE 25 MG TABLET PO SCH ×2 (09:37→21:05)
[2021-03-21] MEDS: ENOXAPARIN 30 MG/0.3 ML SYRINGE SQ SCH ×2 (09:37→21:05)
[2021-03-21] MEDS: NICOTINE 21 MG PATCH TOPICAL SCH (09:37)
[2021-03-21] MEDS: CALCIUM CARBONATE 500 MG TAB.CHEW CHEWED PRN (10:07)
[2021-03-21] MEDS: AZITHROMYCIN 500 MG in DEXTROSE 5% IN WATER 250 ML IV SCH (11:09)
[2021-03-21] MEDS: ACETAMINOPHEN 325 MG TABLET PO PRN (13:16)
[2021-03-21 16:15] LABS: ALT/SGPT 24 U/L (<40); AST/SGOT 14 U/L (<40); Albumin 3.7 gm/dL (3.2-5.2); Albumin/Globulin Ratio 1.2 (1.0-2.3); Alkaline Phosphatase 111 U/L (39-117); Bilirubin,Direct < 0.2 mg/dL (0-0.3); Bilirubin,Total 0.2 mg/dL (0.1-1.0); Blood Urea Nitrogen 21 mg/dL (6-20); Calcium 9.1 mg/dL (8.6-10.4); Carbon Dioxide 28 mmol/L (22-30); Chloride 93 mmol/L (96-108); Globulin 3.2 gm/dL (2.2-3.7); Glomerular Filtration Rate 106; Glucose 127 mg/dL (70-105); Lactate Dehydrogenase 225 U/L (135-225); Phosphorous 3.3 mg/dL (2.5-4.5); Triglycerides 140 mg/dL (<150); Uric Acid 7.4 mg/dL (2.5-8.0)
[2021-03-22] MEDS: IPRATROPIUM/ALBUTEROL 3 ML AMPUL.NEB NEB SCH ×4 (02:12→19:05)
[2021-03-22] MEDS: DIAZEPAM 2 MG TABLET PO PRN (02:12)
[2021-03-22] MEDS: methylPREDNISolone SOD SUCC 125 MG/2 ML VIAL IV SCH ×2 (05:49→20:33)
[2021-03-22] MEDS: 0.9 % SODIUM CHLORIDE 10 ML SYRINGE IV SCH ×3 (05:49→20:34)
[2021-03-22 06:15] LABS: Hematocrit 47.9 % (40.1-51.0); Hemoglobin 15.9 g/dL (13.7-17.5); Mean Corpuscular HGB Conc 33.2 g/dL (31.0-36.0); Mean Platelet Volume 9.8 fL (7.4-10.4); Platelet Count 351 K/mcL (140-440); RBC 4.89 M/mcL (4.63-6.08); Red Cell Distribution Width 11.9 % (11.5-14.5); WBC 23.9 K/mcL (4.5-11.0)
[2021-03-22 07:32] LABS: Band Neutrophils % 3 % (0-10); Lymphocytes % 5 % (15-49); Platelet Estimate NORMAL (Normal); RBC Morphology NORMAL (Normal); Segmented Neutrophils % 92 % (38-78)
[2021-03-22] MEDS: BUDESONIDE 0.5 MG/2 ML AMPUL.NEB NEB SCH ×2 (07:45→19:05)
[2021-03-22] MEDS: ACETAMINOPHEN 325 MG TABLET PO PRN (07:54)
[2021-03-22] MEDS: CALCIUM CARBONATE 500 MG TAB.CHEW CHEWED PRN ×2 (07:55→23:56)
[2021-03-22] MEDS: INSULIN LISPRO 1 UNIT/0.01 ML UNIT SQ SCH ×4 (08:00→20:33)
--- NOTE | 2021-03-22 08:39 | Internal Med Progress Note ---
SUBJECTIVE Subjective Patient information: Note initiated : 03/22/21 at 8:34 am Service Date, if different from initiated Date: [] Patient: Min Hoang a 55 y/o M admitted on 03/20/21 for shortness of breath, chest pain. Chief Complaint: [] Interval history: chief Complaint: [] History of present illness: Mr. Hoang is a 55 year old M Presents to the ED for the third time since the for shortness of breath. Diagnosis COPD exacerbation Is on 2-3 L of oxygen at home, don't think he wears it all the time. In triage he appeared quite labored and wheezing. Oxygen saturations were mid 80s on room air. Chest x-ray unremarkable for acute but has chronic changes. Patient denies chest pain but has occasional cough and shortness of breath. Patient quite lethargic. VBG with CO2 retention. He is still smoking a few cigarettes per day. 03/21 Patient on BiPAP overnight. Patient awake and feeling much better. Minimal cough. Runs of breath improving. 03/22 Patient says overall he is feeling much improved but does have these coughing fits well he will desat quite a bit. Leukocytosis from high-dose steroids. Review of Systems: denies headache/fever/chills/nausea/vomiting/chest or abdominal pain/diarrhea. Otherwise see above. Constitutional Vitals: Vital Signs Temp Pulse Resp BP Pulse Ox 98.9 F 97 H 14 143/103 94 03/22/21 08:01 03/22/21 08:11 03/22/21 07:48 03/22/21 08:01 03/22/21 08:11 Period Temp Pulse Resp BP Sys/Garcia Pulse Ox Last 24 Hr 97.0 F-98.9 F 73-108 14-28 118-143/74-103 89-97 Intake and Output 03/21/21 03/22/21 03/22/21 21:59 05:59 13:59 Intake Total 560 480 Output Total 650 500 Balance -90 -20 Weight 83.869 kg Intake & Output: Intake & Output 03/21/21 03/22/21 03/22/21 21:59 05:59 13:59 Intake Total 560 480 Output Total 650 500 Balance -90 -20 Weight 83.869 kg Intake: Oral 560 480 Output: Void Amount 650 500 Other: Meal Dinner Percent of Meal Consumed 100% Feeding Ability Independent Urine Appearance Clear Clear Urine Color Bright Yellow Bright Yellow Urine Odor Normal Normal Exam: General: Awake, No acute Distress, obese Eyes/N/T: EOMI, Head/Neck: neck supple, CV: RRR, No murmurs, Pulm: better aeration, occ wheeze/rhonchi, prolonged expiratory phase Abd: soft, nontender, +BS x4 Ext: no clubbing/cyanosis, 1+ b/l LE edema Neuro: alert, no focal deficits, moves all extremities, Skin: warm/dry OBJ DATA Labs CBC & Chem 7: 03/22/21 04:51 03/21/21 05:15 Labs: Abnormal Lab Results 03/22/21 03/21/21 03/21/21 04:51 08:02 05:15 WBC 23.9 H [place] # (Auto) Seg Neutrophils % 92 H Lymphocytes % 5 L ABG Methemoglobin 0 L VBG pH VBG pCO2 55.2 H VBG pO2 97.0 H VBG HCO3 34.0 H VBG Total CO2 35.7 H VBG O2 Saturation 92.8 H VBG Base Excess 7 H Carboxyhemoglobin 5.2 H Total Hemoglobin Chloride 93 L BUN 21 H Glucose 127 H Procalcitonin 03/21/21 03/20/21 03/20/21 05:15 18:00 12:43 WBC 18.6 H 11.3 H [place] # (Auto) 0.98 H Seg Neutrophils % 87 H Lymphocytes % 6 L ABG Methemoglobin 0.1 L VBG pH 7.29 L VBG pCO2 64.5 H* VBG pO2 53.7 H VBG HCO3 30.6 H VBG Total CO2 32.6 H VBG O2 Saturation 79.4 H VBG Base Excess Carboxyhemoglobin 5.8 H Total Hemoglobin 16.7 H Chloride BUN Glucose Procalcitonin 03/20/21 03/20/21 03/20/21 11:25 10:55 10:55 WBC [place] # (Auto) Seg Neutrophils % Lymphocytes % ABG Methemoglobin 0.3 L VBG pH VBG pCO2 65.8 H* VBG pO2 40.9 H VBG HCO3 33.8 H VBG Total CO2 35.8 H VBG O2 Saturation VBG Base Excess 5 H Carboxyhemoglobin 8.1 H Total Hemoglobin Chloride BUN 23 H Glucose Procalcitonin 0.78 H Meds: Medications Acetaminophen (Acetaminophen 325 Mg Tablet) 650 mg PO Q6HP PRN; Protocol PRN Reason: Per Pain Protocol/Fever > 101 Last Admin: 03/22/21 07:54 Dose: 650 mg Documented by: Albuterol/Ipratropium (Ipratropium/Albuterol 3 Ml Ampul.Neb) 3 ml NEB Q4HP PRN PRN Reason: Shortness Of Breath Albuterol/Ipratropium (Ipratropium/Albuterol 3 Ml Ampul.Neb) 3 ml NEB Q6HRT [place] Last Admin: 03/22/21 07:45 Dose: 3 ml Documented by: Budesonide (Budesonide 0.5 Mg/2 Ml Ampul.Neb) 0.5 mg NEB Q12 [facility] Last Admin: 03/22/21 07:45 Dose: 0.5 mg Documented by: Calcium Carbonate/Glycine (Calcium Carbonate 500 Mg Tab.Chew) 500 mg CHEWED Q4HP PRN PRN Reason: Dyspepsia Last Admin: 03/22/21 07:55 Dose: 500 mg Documented by: Dextrose (Dextrose 50% 50 Ml Vial) 0 ml IV UD PRN PRN Reason: Hypoglycemia Diagnostic Test (Pha) (Accu-Chek 1 Each Strip) 1 each FS ACHS [facility] Last Admin: 03/22/21 08:00 Dose: 1 each Documented by: Diazepam (Diazepam 2 Mg Tablet) 2 mg PO TIDP PRN PRN Reason: muscle spasm Last Admin: 03/22/21 02:12 Dose: 2 mg Documented by: Enoxaparin Sodium (Enoxaparin 30 Mg/0.3 Ml Syringe) 30 mg SQ BID [facility] Last Admin: 03/21/21 21:05 Dose: 30 mg Documented by: Furosemide (Furosemide 40 Mg Tablet) 40 mg PO Q48H [facility] Glucose (Dextrose 31 Gm Oral.Susp) 15 gm PO PRN PRN PRN Reason: Hypoglycemia Potassium Chloride 40 meq/ (Dextrose) 520 mls @ 130 mls/hr IV UD PRN PRN Reason: Potassium < 3 Magnesium Sulfate (Magnesium Sulfate) 2 gm in 50 mls @ 50 mls/hr IV UD PRN PRN Reason: Magnesium </= 1.6 Azithromycin 500 mg/ Dextrose 250 mls @ 250 mls/hr IV DAILY@1100 [place]; Protocol Stop: 12/23/21 11:59 Last Infusion: 03/21/21 12:10 Dose: Infused Documented by: Insulin Human Lispro (Insulin Lispro 1 Unit/0.01 Ml Unit) 0 unit SQ [facility]; Protocol Last Admin: 03/22/21 08:00 Dose: Not Given Documented by: Lidocaine (Lidocaine Patch) 1 patch TOPICAL DAILYP PRN PRN Reason: Pain Last Admin: 03/21/21 13:29 Dose: 1 patch Documented by: Methylprednisolone Sodium Succinate (Methylprednisolone Sod Succ 125 Mg/2 Ml Vial) 62.5 mg IV Q8 [facility] Last Admin: 03/22/21 05:49 Dose: 62.5 mg Documented by: Metoclopramide HCl (Metoclopramide 10 Mg/2 Ml Vial) 10 mg IV Q6HP PRN PRN Reason: Nausea And Vomiting Metoprolol Tartrate (Metoprolol Tartrate 25 Mg Tablet) 25 mg PO BID [facility] Last Admin: 03/21/21 21:05 Dose: 25 mg Documented by: Nicotine (Nicotine 21 Mg Patch) 21 mg TOPICAL DAILY [facility] Last Admin: 03/21/21 09:37 Dose: 21 mg Documented by: Ondansetron HCl (Ondansetron 4 Mg/2 Ml Vial) 4 mg IV Q4HP PRN PRN Reason: Nausea And Vomiting Last Admin: 03/22/21 07:54 Dose: 4 mg Documented by: Polyethylene Glycol (Polyethylene Glycol 3350 17 Gm Packet) 17 gm PO DAILYP PRN PRN Reason: Constipation Potassium Chloride (Potassium Chloride 20 Meq Tablet) 40 meq PO UD PRN PRN Reason: Potssium is 3-3.5 Potassium Chloride (Potassium Chloride 20 Meq Tablet) 40 meq PO UD PRN PRN Reason: Potassium < 3 Potassium Chloride (Potassium Chloride 10 Meq Tablet) 10 meq PO Q48H [facility] Senna (Sennosides 1 Tablet) 2 tab PO DAILYP PRN PRN Reason: Constipation Sodium Chloride (0.9 % Sodium Chloride 10 Ml Syringe) 10 ml IV Q8 [facility] Last Admin: 03/22/21 05:49 Dose: 10 ml Documented by: Venlafaxine HCl (Venlafaxine 75 Mg Cap.Xl.24h) 75 mg PO QDAY [facility] Last Admin: 03/21/21 09:37 Dose: 75 mg Documented by: ABG Interpretation ABG results: 03/20/21 03/20/21 03/21/21 11:25 18:00 08:02 ABG Methemoglobin 0.3 L 0.1 L 0 L VBG pH 7.33 7.29 L 7.41 VBG pCO2 65.8 H* 64.5 H* 55.2 H VBG pO2 40.9 H 53.7 H 97.0 H VBG HCO3 33.8 H 30.6 H 34.0 H VBG Total CO2 35.8 H 32.6 H 35.7 H VBG O2 Saturation 65.3 79.4 H 92.8 H VBG Base Excess 5 H 2 7 H A/P Narrative A/P Narrative: A: *AECOPD(2-3L O2@home): 2/2 above -RVP neg, pct elevated *Acute on chronic hypoxic/hypercapnic respiratory failure: -bipap off to now NC *Encephalopathy (lethargy): 2/2 above -improved *HTN: *PTSD: *Tobacco abuse: *Obesity: P: -glucocorticoids(wean), azithro -IS/Acapella, darling and prn nebs -wean O2 as able -cont home BB/lasix -Smoking cessation counseling -ppx: lovenox Time Spent With Patient Time: Total time spent is greater than 50% in coordination of care (as documented) at patient's floor/unit and/or counseling patient: QUALITY VTE Deep Vein Thrombosis/Pulmonary Embolism Present on Admission: No
[2021-03-22] MEDS: METHOCARBAMOL 750 MG TABLET PO PRN ×2 (08:51→15:43)
[2021-03-22] MEDS: HYDROcodone/APAP 5/325MG TABLET PO PRN ×3 (08:51→23:35)
[2021-03-22] MEDS: guaiFENesin/CODEINE 10 ML UDC PO PRN ×2 (08:52→15:44)
[2021-03-22] MEDS ORDERED: POTASSIUM CHLORIDE 10 MEQ TABLET PO SCH (09:00)
[2021-03-22] MEDS ORDERED: FUROSEMIDE 40 MG TABLET PO SCH (09:00)
--- NOTE | 2021-03-22 09:27 | EKG ---
[facility] Test Date: 2021-03-20 Pat Name: Min Hoang Department: ICU Room: 120B Gender: Male [place]: : 1965 Requested By: Ho Dasilva Order Number: [id number] Reading MD: Shay Kearney Measurements Intervals [place] Rate: 94 P: 80 VA: 142 QRS: 86 QRSD: 95 T: 23 QT: 386 QTc: 483 Interpretive Statements Sinus rhythm Minimal ST depression, inferior leads Borderline prolonged QT interval Electronically Signed On 03-22-2021 9:26:56 PST by Shay Kearney /[email or web address]/[id number]
[2021-03-22] MEDS: ENOXAPARIN 30 MG/0.3 ML SYRINGE SQ SCH ×2 (09:34→20:34)
[2021-03-22] MEDS: METOPROLOL TARTRATE 25 MG TABLET PO SCH ×2 (09:34→20:34)
[2021-03-22] MEDS: VENLAFAXINE 75 MG CAP.XL.24H PO SCH (09:34)
[2021-03-22] MEDS: NICOTINE 21 MG PATCH TOPICAL SCH (09:34)
[2021-03-22] MEDS: LIDOCAINE PATCH TOPICAL SCH (09:35)
[2021-03-22] MEDS: AZITHROMYCIN 500 MG in DEXTROSE 5% IN WATER 250 ML IV SCH (11:25)
[2021-03-22] MEDS ORDERED: methylPREDNISolone SOD SUCC 40 MG/ML VIAL IV ONE (12:00)
[2021-03-22] MEDS ORDERED: methylPREDNISolone SOD SUCC 125 MG/2 ML VIAL IV SCH (21:00)
[2021-03-23] MEDS: IPRATROPIUM/ALBUTEROL 3 ML AMPUL.NEB NEB SCH ×2 (01:16→06:32)
[2021-03-23] MEDS: 0.9 % SODIUM CHLORIDE 10 ML SYRINGE IV SCH (04:05)
[2021-03-23] MEDS: HYDROcodone/APAP 5/325MG TABLET PO PRN ×2 (04:05→08:58)
[2021-03-23] MEDS: INSULIN LISPRO 1 UNIT/0.01 ML UNIT SQ SCH ×2 (06:48→11:20)
[2021-03-23 07:20] LABS: Basophils # (Auto) 0.02 K/mcL (0.00-0.30); Basophils % (Auto) 0.1 % (0.0-2.0); Eosinophils # (Auto) 0 K/mcL (0.00-0.70); Eosinophils % (Auto) 0 % (0.0-7.0); Hematocrit 50.6 % (40.1-51.0); Hemoglobin 16.6 g/dL (13.7-17.5); Lymphocytes % (Auto) 4.3 % (15.5-49.0); Mean Cell Volume 97.9 fL (80.0-100.0); Mean Corpuscular HGB Conc 32.8 g/dL (31.0-36.0); Mean Platelet Volume 10.2 fL (7.4-10.4); Monocytes # (Auto) 0.61 K/mcL (0.10-0.90); Monocytes % (Auto) 3.3 % (1.0-12.0); Neutrophils % (Auto) 92.3 % (38.0-78.0); Platelet Count 353 K/mcL (140-440); RBC 5.17 M/mcL (4.63-6.08); Red Cell Distribution Width 11.8 % (11.5-14.5); WBC 18.6 K/mcL (4.5-11.0)
[2021-03-23] MEDS: BUDESONIDE 0.5 MG/2 ML AMPUL.NEB NEB SCH (07:26)
[2021-03-23 08:10] LABS: ALT/SGPT 28 U/L (<40); AST/SGOT 15 U/L (<40); Albumin 3.7 gm/dL (3.2-5.2); Albumin/Globulin Ratio 1.3 (1.0-2.3); Alkaline Phosphatase 101 U/L (39-117); Bilirubin,Total < 0.2 mg/dL (0.1-1.0); Blood Urea Nitrogen 23 mg/dL (6-20); Calcium 9.2 mg/dL (8.6-10.4); Carbon Dioxide 25 mmol/L (22-30); Chloride 96 mmol/L (96-108); Globulin 2.8 gm/dL (2.2-3.7); Glomerular Filtration Rate 106; Glucose 156 mg/dL (70-105)
[2021-03-23] MEDS: methylPREDNISolone SOD SUCC 125 MG/2 ML VIAL IV SCH (08:52)
[2021-03-23] MEDS: NICOTINE 21 MG PATCH TOPICAL SCH (08:53)
[2021-03-23] MEDS: VENLAFAXINE 75 MG CAP.XL.24H PO SCH (08:53)
[2021-03-23] MEDS: ENOXAPARIN 30 MG/0.3 ML SYRINGE SQ SCH (08:53)
[2021-03-23] MEDS: METOPROLOL TARTRATE 25 MG TABLET PO SCH (08:53)
[2021-03-23] MEDS ORDERED: AZITHROMYCIN 250 MG TABLET PO SCH (09:00)
[2021-03-23] MEDS: LIDOCAINE PATCH TOPICAL SCH (09:49)
[2021-03-23] MEDS ORDERED: PNEUMOCOCCAL 23-VAL P-SAC VAC 0.5 ML SYRINGE IM ONE (10:45)
[2021-03-23] MEDS ORDERED: FLU VACC QS2021-22(6MOS UP)/PF 60 MCG/0.5 ML SYRINGE IM ONE (11:00)
[2021-03-23] MEDS: METHOCARBAMOL 750 MG TABLET PO PRN (11:15)
--- NOTE | 2021-03-23 11:20 | Discharge Summary ---
Discharge Provider Provider Patient information: Note initiated : 03/23/21 at 11:17 am Service Date, if different from initiated Date: [] Patient: Min Hoang 55 y/o M admitted on 03/20/21 for shortness of breath, chest pain. Chief Complaint: [] Date of admission: 03/20/21 14:36 Discharge date: 03/23/21 Primary care physician: Yamil Prery MD Attending physician on admission: Ho Dasilva Consults: 03/20/21 Consult to Physician [CONS] Stat Comment: Consulting Provider: Ho Dasilva Reason For Exam: Physician to Consult Attending physician on discharge: Chi Wolfgang Pui Discharge Meds Discharge Medications Home Medications fluticasone fur. 200 mcg-umeclid 62.5 mcg-vilant 25 mcg inhalat.powder (Trelegy Ellipta) 1 inh INHALATION Q24H #60 ea 08/18/20 [Rx Confirmed 03/21/21 Last Taken 03/20/21] metoprolol tartrate 25 mg tablet 25 mg PO BID #60 tab 08/18/20 [Rx Confirmed 03/21/21 Last Taken 03/20/21] ipratropium bromide [Atrovent HFA] 2 puff INHALATION PRN PRN 08/25/20 [History Confirmed 03/20/21 Last Taken Unknown] venlafaxine 75 mg capsule,extended release 24 hr 75 mg PO QDAY #30 cap 12/12/20 [Rx Confirmed 03/21/21 Last Taken 03/20/21] ipratropium 0.5 mg-albuterol 3 mg (2.5 mg base)/3 mL nebulization soln 3 ml INHALATION QID #180 ml 12/15/20 [Rx Confirmed 03/21/21 Last Taken 03/20/21] nebulizers (Altera Nebulizer) #1 ea 12/15/20 [Rx Confirmed 03/20/21 Last Taken Unknown] albuterol sulfate 90 mcg/actuation aerosol inhaler 2 puff INHALATION Q6H PRN #8.5 g 01/05/21 [Rx Confirmed 03/20/21 Last Taken 03/10/21] furosemide 40 mg tablet 40 mg PO Q OTHER DAY #30 tab 01/15/21 [Rx Confirmed 03/21/21 Last Taken 03/20/21] potassium chloride 10 mEq tablet,extended release 10 meq PO Q OTHER DAY #30 tab 01/15/21 [Rx Confirmed 03/21/21 Last Taken 03/20/21] lidocaine 5 % topical patch (Lidoderm) 1 patch TOPICAL QDAY PRN #7 ea 03/11/21 [Rx Confirmed 03/20/21 Last Taken Unknown] oxygen-air delivery systems 03/11/21 [History Confirmed 03/20/21 Last Taken Unknown] diazepam 2 mg tablet (Valium) 2 mg PO TID PRN #8 tab 03/19/21 [Rx Confirmed 03/20/21 Last Taken Unknown] azithromycin 500 mg tablet 250 mg PO QDAY #4 tab 03/23/21 [Rx Last Taken Unknown] hydrocodone 5 mg-acetaminophen 325 mg tablet 1 tab PO Q4HP PRN #10 tab 03/23/21 [Rx Last Taken Unknown] prednisone 20 mg tablet 40 mg PO QDAY #4 tab 03/23/21 [Rx Last Taken Unknown] COURSE Hospital Course Hospital course: Mr. Hoang is a 55 year old M Presents to the ED for the third time since the for shortness of breath. Diagnosis COPD exacerbation Is on 2-3 L of oxygen at home, don't think he wears it all the time. In triage he appeared quite labored and wheezing. Oxygen saturations were mid 80s on room air. Chest x-ray unremarkable for acute but has chronic changes. Patient denies chest pain but has occasional cough and shortness of breath. Patient quite lethargic. VBG with CO2 retention. He is still smoking a few cigarettes per day. 03/21 Patient on BiPAP overnight. Patient awake and feeling much better. Minimal cough. Runs of breath improving. 03/22 Patient says overall he is feeling much improved but does have these coughing fits well he will desat quite a bit. Leukocytosis from high-dose steroids. 03/23: Reached clinical stability. Follow up with PCP in 2 weeks. Rx Zithromax and Prednisone and Crook given. All questions answered prior to patient being physically discharged. Discharge diagnosis: Acute exacerbation of COPD Time Spent with Patient Time attestation: Total time spent providing and/or coordinating discharge services: Time spent: Less than 30 minutes EXAM Constitutional Vitals: Temp Pulse Resp BP Pulse Ox 37.2 C 81 20 137/106 94 03/23/21 08:00 03/23/21 06:33 03/23/21 08:00 03/23/21 08:00 03/23/21 08:00 General appearance: cooperative and no acute distress Head Head exam: Present atraumatic and normocephalic Eye Eye exam: Present EOMI and PERRL ENT ENT exam: Present mucous membranes moist, normal exam and normal external ear exam Neck Neck exam: Present normal inspection; Absent lymphadenopathy, tenderness or thyromegaly Respiratory Respiratory exam: Present decreased breath sounds and wheezes; Absent accessory muscle use or respiratory distress Cardiovascular Cardiovascular exam: Present normal rate and rhythm; Absent JVD GI/Abdominal GI/Abdominal exam: Present normal bowel sounds and soft; Absent organomegaly or tenderness Rectal Rectal exam: Present deferred Extremities Exam Extremities exam: Present full ROM, normal capillary refill and normal inspection; Absent tenderness Neurological Exam Neurological exam: Present alert, CN II-XII intact and oriented X3; Absent motor sensory deficit Psychiatric Psychiatric exam: Present normal affect and normal mood; Absent anxious or depressed Skin Skin exam: Present dry and intact Discharge Data Data Completed and Pending Labs on day of discharge: Labs from last 24 hours 03/23/21 03/23/21 05:15 05:15 WBC 18.6 H RBC 5.17 Hgb 16.6 Hct 50.6 MCV 97.9 MCH 32.1 MCHC 32.8 RDW 11.8 Plt Count 353 MPV 10.2 Neut % (Auto) 92.3 H Lymph % (Auto) 4.3 L [place] % (Auto) 3.3 Eos % (Auto) 0 Baso % (Auto) 0.1 Lymph # (Auto) 0.80 L [place] # (Auto) 0.61 Eos # (Auto) 0 Baso # (Auto) 0.02 Absolute Neutrophils 17.18 H Sodium 133 Potassium 4.9 Chloride 96 Carbon Dioxide 25 Anion Gap 12.0 BUN 23 H Creatinine 0.7 GFR Calculation 106 Glucose 156 H Calcium 9.2 Total Bilirubin < 0.2 AST 15 ALT 28 Alkaline Phosphatase 101 Total Protein 6.5 Albumin 3.7 Globulin 2.8 Albumin/Globulin Ratio 1.3 Discharge Plan Patient/Caregiver Discharge Instructions Activity: increase activity as tolerated and as instructed Diet: Regular Diet Instructions: Prednisone (By mouth), How to Stop Smoking (GEN), Cigarette Smoking and Your Health (GEN), COPD (Chronic Obstructive Pulmonary Disease) (GEN), Acute Respiratory Failure (GEN) Activity Restrictions/Additional Instructions: Increase your activity while your oxygen is on. Continue with a regular diet as tolerated. Follow up with your Primary Care Physician as scheduled. Take all medication as directed. Your prescription is with your discharge paperwork. Pain medication can cause constipation; take an over the counter stool softener and/or laxative while on pain medication. Return to ER for fever, chills, uncontrolled pain, unable to go to the bathroom, nausea and/or vomiting, swelling, redness, signs of infection, shortness of breath, chest pain, return of symptoms, or other acute symptoms. This discharge packet is provided to you to help keep you informed about your care. We want to ensure you get everything you need when you go home. You will also be receiving a call from us in a few days to follow up with you and see how you are doing since your discharge. This gives us a chance to listen to any concerns you maybe experiencing since you were discharged or any additional needs you may have, as well as providing us feedback on your care experience. We strive to always provide excellent care and thank you for your feedback and for choosing [facility]. Prescriptions: New hydrocodone-acetaminophen 5-325 mg Tablet 1 tab PO Q4HP PRN (Reason: Per Pain Protocol) Qty: 10 0RF prednisone 20 mg tablet 40 mg PO QDAY Qty: 4 0RF Continued venlafaxine 75 mg capsule,extended release 24hr 75 mg PO QDAY Qty: 30 2RF albuterol sulfate 90 mcg/actuation HFA aerosol inhaler 2 puff inhalation Q6H PRN (Reason: shortness of breath or wheezing) Qty: 8.5 3RF furosemide 40 mg tablet 40 mg PO Q OTHER DAY Qty: 30 1RF potassium chloride 10 mEq tablet extended release 10 meq PO Q OTHER DAY Qty: 30 1RF Rx Instructions: take w/ lasix ipratropium bromide [Atrovent HFA] 2 puff inhalation PRN PRN (Reason: Shortness Of Breath Or Wheezing) 0RF Rx Instructions: see inst. (DME) Altera Nebulizer Misc See Rx Instructions .Route Qty: 1 0RF Rx Instructions: As directed ipratropium-albuterol 0.5 mg-3 mg(2.5 mg base)/3 mL solution for nebulization 3 ml inhalation QID Qty: 180 3RF metoprolol tartrate 25 mg tablet 25 mg PO BID Qty: 60 3RF Trelegy Ellipta 200-62.5-25 mcg blister with device 1 inh inhalation Q24H Qty: 60 6RF (DME) oxygen-air delivery systems 0RF lidocaine [Lidoderm] 5 % adhesive patch,medicated 1 patch topical QDAY PRN (Reason: pain) Qty: 7 0RF Rx Instructions: leave on most painful area for up to 12 hrs diazepam [Valium] 2 mg tablet 2 mg PO TID PRN (Reason: muscle spasm) Qty: 8 0RF Changed azithromycin 500 mg Tablet 250 mg PO QDAY Qty: 4 0RF Rx Instructions: 1 TABLET DAILY FOR 5 DAYS. FILLED ON 03/19/21. Follow Up Plan Follow up with: Yamil Perry MD [Primary Care Provider] - 03/27/21 1:00 pm (This appointment is with Dariel Botello. Please check in at 12:45 pm) Patient Disposition: Home, Self-Care Prognosis: Fair Rehab Potential: Good I certify that the patient requires SNF services: No Overall status at discharge: patient is progressing back to baseline Discharge Orders: Discharge Order (Routine); Ordered 03/23/21 Ordered By: Kenny CALDERÓN VTE Deep Vein Thrombosis/Pulmonary Embolism Present on Admission: No
== END 2021-03-23 12:40 | disposition home or self-care (01) | DRG 190 ==
LOC: ED 10:36 → ICU 14:36
PROVIDERS: ADMIT Internal Medicine; ATTEND Internal Medicine

== ENCOUNTER 2022-03-03 23:49 | Inpatient (IN) ==
[2022-03-03] MEDS ORDERED: IOPAMIDOL 100 ML BOTTLE IV ONE (23:50)
[2022-03-04 00:42] LABS: POC Calcium, Ionized 1.14 (1.16-1.32); POC Potassium 3.9 (3.3-5.1)
[2022-03-04 00:58] LABS: Basophils # (Auto) 0.08 K/mcL (0.00-0.30); Eosinophils # (Auto) 0.33 K/mcL (0.00-0.70); Eosinophils % (Auto) 4.3 % (0.0-7.0); Hematocrit 52.1 % (40.1-51.0); Hemoglobin 17.1 g/dL (13.7-17.5); Lymphocytes # (Auto) 1.96 K/mcL (1.50-4.80); Lymphocytes % (Auto) 25.7 % (15.5-49.0); Mean Corpuscular HGB Conc 32.8 g/dL (31.0-36.0); Mean Platelet Volume 10.2 fL (8.8-12.5); Monocytes # (Auto) 0.76 K/mcL (0.10-0.90); Neutrophils % (Auto) 58.7 % (38.0-78.0); Platelet Count 287 K/mcL (140-440); RBC 5.54 M/mcL (4.63-6.08); Red Cell Distribution Width 12.7 % (11.5-14.5); WBC 7.6 K/mcL (4.5-11.0)
--- NOTE | 2022-03-04 01:23 | Emergency Department Note ---
Chest Pain HPI General Chief Complaint: Chest Pain Stated Complaint: chest pain Time Seen by Provider: 03/04/22 00:01 Source: patient Mode of arrival: ambulatory Limitations: no limitations History of Present Illness HPI Narrative: Narrative: Presents ED with complaints of difficulty breathing over the last couple days. He states he has been coughing and coughing but nothing is coming out. He has a history of COPD and CHF. He reports he has had some intermittent chills. Denies fever, nausea, vomiting, diarrhea, constipation. He does report abdominal distention he does state that his abdominal area does hurt that he rates 5/10. Denies any known abdominal trauma. He states he felt has been coughing nonstop. Denies any other alleviating or aggravating factors. Related Data Home Medications Medication Instructions Recorded Confirmed oxygen-air delivery systems 03/11/21 01/21/22 cholecalciferol (vitamin D3) 50 50 mcg PO QDAY 04/17/21 01/21/22 mcg (2,000 unit) capsule polyethylene glycol 3350 17 17 g PO BID PRN constipation 04/17/21 01/21/22 gram/dose oral powder (Miralax) calcium 600 mg capsule 600 mg PO BID 11/26/21 01/21/22 famotidine 10 mg tablet (Pepcid AC) 10 mg PO QDAY 11/26/21 01/21/22 Previous Rx's Medication Instructions Recorded ipratropium 0.5 mg-albuterol 3 mg 3 ml inhalation QID #180 mL 12/15/20 (2.5 mg base)/3 mL nebulization soln nebulizers (Altera Nebulizer #1 ea 12/15/20 Handset) potassium chloride 10 mEq 10 meq PO Q OTHER DAY #30 tabs 01/15/21 tablet,extended release metoprolol tartrate 25 mg tablet 25 mg PO BID HTN #60 tabs 03/29/21 alendronate 10 mg tablet 10 mg PO QDAY #90 tabs 04/30/21 furosemide 40 mg tablet 40 mg PO QAM #30 tabs 05/21/21 spironolactone 25 mg tablet 25 mg PO QDAY #30 tabs 05/21/21 guaifenesin 1,200 mg tablet, 1,200 mg PO BID #60 tabs 08/09/21 extended release 12 hr venlafaxine 37.5 mg 37.5 mg PO QDAY #30 caps 09/28/21 capsule,extended release 24 hr venlafaxine 75 mg capsule,extended 75 mg PO QDAY #30 caps 09/28/21 release 24 hr peg 3350-electrolytes 236 240 ml PO Q10M #4,000 mL 11/29/21 gram-22.74 gram-6.74 gram-5.86 gram solution (Golytely) albuterol sulfate 90 mcg/actuation 2 puff inhalation Q6H PRN 12/27/21 aerosol inhaler shortness of breath or wheezing #8.5 grams prednisone 50 mg tablet 50 mg PO QDAY #5 tabs 01/18/22 amoxicillin 875 mg-potassium 1 tab PO BID #20 tabs 01/21/22 clavulanate 125 mg tablet Allergies Allergy/AdvReac Type Severity Reaction Status Date / Time Calcitonin Allergy Severe Other Verified 01/21/22 09:56 dextromethorphan Allergy Severe Other Verified 01/21/22 09:56 diphenhydramine Allergy Severe Other Verified 01/21/22 09:56 [id number] Allergy Severe Swelling Verified 01/21/22 09:56 [From Trelegy Ellipta] of Lip/Tongue/Throat umeclidinium Allergy Severe Swelling Verified 01/21/22 09:56 [From Trelegy Ellipta] of Lip/Tongue/Throat vilanterol Allergy Severe Swelling Verified 01/21/22 09:56 [From Trelegy Ellipta] of Lip/Tongue/Throat diazepam [From Valium] AdvReac Intermediate Bradycardia Verified 01/21/22 09:56 Review of Systems ROS ROS Narrative: Narrative: All systems ED: reviewed and negative except as stated. 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) Obstructive sleep apnea (Chronic) Pulmonary fibrosis (Chronic) Osteoporosis (Acute) Idiopathic osteoporosis with pathological fracture (Acute) Hand lesion (Acute) Age-related osteoporosis with current pathological fracture, vertebra(e), initial encounter for fracture (Acute) Depression (Chronic) Anxiety (Chronic) Seizures (Chronic) Pneumonia due to COVID-19 virus (Chronic) Pneumonia (Chronic) Fracture of tooth (Chronic) Dental caries (Chronic) Dental abscess (Chronic) Back pain, thoracic (Chronic) Back pain of thoracolumbar region (Chronic) Back pain (Chronic) Compression fracture (Chronic) History of severe acute respiratory syndrome coronavirus 2 (SARS-CoV-2) disease (Chronic) GERD (gastroesophageal reflux disease) (Chronic) Lung nodules (Chronic) Witnessed apneic spells (Chronic) Snoring (Chronic) Hypersomnia (Chronic) Pulmonary hypertension (Chronic) Hypertension (Chronic) Exertional shortness of breath (Chronic) Asthma (Chronic) Costochondritis (Chronic) Portal hypertension (Chronic) Heart failure (Chronic) PTSD (post-traumatic stress disorder) (Chronic) Nightmares (Chronic) Grief (Chronic) Tobacco use (Chronic) Medical History Age-related osteoporosis with current pathological fracture, vertebra(e), initial encounter for fracture Anxiety Asthma Back pain Back pain of thoracolumbar region Back pain, thoracic Compression fracture thoracic spine Costochondritis Dental abscess Dental caries Depression Exertional shortness of breath Fracture of tooth GERD (gastroesophageal reflux disease) Grief Heart failure History of severe acute respiratory syndrome coronavirus 2 (SARS-CoV-2) disease November 2020 Hypersomnia Hypertension Hypoxia Lung nodules 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 Family History Sister Multiple sclerosis Father Hypertension Arthritis Chronic pain Grandmother Multiple sclerosis Brittle bones Social History Smoking Status: Current every day smoker Alcohol Intake Frequency: does not drink Substance Use: does not use Exam Narrative Narrative: Narrative: General Limitations: no limitations General appearance: Present alert Respiratory Respiratory: Present respiratory distress, wheezes and accessory muscle use; Absent stridor Cardiovascular Cardiovascular: Present normal rhythm and tachycardia Adbominal Abdominal: Present soft, distention, tenderness and normal bowel sounds Expanded Abdominal Abdominal Tenderness: Present diffuse Extremities Extremities: Present normal capillary refill Neurological Neurological: Present oriented X3 and normal gait Psychiatric Psychiatric: Present normal affect and normal mood Skin Skin: Present warm (WNL) and intact Course Course Course Narrative: Patient was evaluated for shortness of breath. At baseline patient uses 3 L of oxygen nasal cane but was requiring 4 here in the ED to maintain adequate oxygen saturation. Blood gas had normal lactic acid but his CO2 level was greater than 70. Looking back at his medical record he is normally in the 50s. BiPAP was ordered and patient tolerated well. Patient was negative for COVID and for flu. Chest x-ray obtained image reviewed myself which is unremarkable compared to previous, official read pending. Case was discussed with hospitalist who has agreed to admit the patient for hypercapnia secondary to COPD exacerbation. Fransico aguero has a allergy to methylprednisolone also albuterol ingredients so those were not utilized. Patient's troponin was negative. Patient complained of abdominal pain so CT abdomen pelvis obtained with image reviewed myself with no obvious acute etiology for the pain. Plan of care was discussed with patient expressed verbal understanding and agreement. Consultations Consultation #1: Case discussed with hospitalist, Dr. Ross, who has agreed to admit patient to the hospital for respiratory failure with hypercapnia Time: 01:55 Vital Signs Vital signs: Vital Signs Temperature 97.8 F 03/03/22 23:50 Pulse Rate 107 H 03/03/22 23:50 Respiratory Rate 16 03/03/22 23:50 Blood Pressure 154/103 03/03/22 23:50 Pulse Oximetry (%) 94 03/03/22 23:50 Oxygen Delivery Method 03/03/22 23:50 Temperature 97.8 F 03/03/22 23:50 Pulse Rate 104 H 03/04/22 02:09 Respiratory Rate 22 03/04/22 02:09 Blood Pressure 141/110 03/04/22 02:01 Pulse Oximetry (%) 97 03/04/22 02:09 Oxygen Delivery Method 03/04/22 01:09 Oxygen Flow Rate (L/min) 3 03/04/22 01:09 MDM MDM Narrative Medical decision making narrative: Narrative: Differential Diagnosis Differential Diagnosis: KS, abdominal pain COPD exacerbation Medical Records Medical records reviewed: Yes I reviewed the patient's medical records. Lab Data Lab results reviewed: Yes I reviewed the patient's lab results. Result diagrams: 03/04/22 00:20 Labs: Lab Results 03/04/22 03/04/22 03/04/22 Range/Units 00:20 00:39 00:40 WBC 7.6 (4.5-11.0) K/mcL RBC 5.54 (4.63-6.08) M/mcL Hgb 17.1 (13.7-17.5) g/dL Hct 52.1 H (40.1-51.0) % POC Hct 52.0 (41-55) MCV 94.0 (80.0-100.0) fL MCH 30.9 (26.0-34.0) pg MCHC 32.8 (31.0-36.0) g/dL RDW 12.7 (11.5-14.5) % Plt Count 287 (140-440) K/mcL MPV 10.2 (8.8-12.5) fL Immature Gran % (Auto) 0.3 (0.0-0.5) % Neut % (Auto) 58.7 (38.0-78.0) % Lymph % (Auto) 25.7 (15.5-49.0) % Pershing % (Auto) 10.0 (1.0-12.0) % Eos % (Auto) 4.3 (0.0-7.0) % Baso % (Auto) 1.0 (0.0-2.0) % Lymph # (Auto) 1.96 (1.50-4.80) K/mcL Pershing # (Auto) 0.76 (0.10-0.90) K/mcL Eos # (Auto) 0.33 (0.00-0.70) K/mcL Baso # (Auto) 0.08 (0.00-0.30) K/mcL Immature Gran # 0.02 (0.00-0.05) K/mcl Absolute Neutrophils 4.47 (1.80-8.00) K/mcL POC VBG pH 7.33 (7.32-7.42) POC VBG pCO2 at Temp 71.5 H* (41-51) POC VBG pO2 38 (25-40) POC VBG HCO3 37.8 H (24-28) POC VBG Total CO2 40.0 H (25-29) POC Venous O2 Sat 66.0 (40-70) POC VBG Base Excess 12.0 H* (-2-2) VBG Lactic Acid 0.9 (0.5-2) POC Sodium 141 (133-145) POC Potassium 3.9 (3.3-5.1) POC Chloride 98 (96-108) POC Total CO2 38.0 H (22-30) POC BUN 15 (6-20) POC Creatinine 1.0 (0.6-1.2) POC Glucose 134 H (70-105) POC WB Ioniz Calcium 1.14 L (1.16-1.32) ED POC Tests ED POC Tests: MARILEE - Influenza A Negative MARILEE - Influenza B Negative MARILEE - SARS Antigen Negative Radiology Data Radiology results reviewed: Yes I reviewed the patient's radiology results. Radiology results narrative: Chest x-ray obtained with image reviewed myself, no acute change when compared to previous, official read pending CT abdomen pelvis obtained with image reviewed myself, agree with radiologist interpretation EKG Data EKG #1: EKG attestation: Yes I reviewed and interpreted this EKG. EKG shows normal: sinus rhythm Rate: tachycardia (102) Rhythm: NSR [place]/QRS: right axis deviation Heart block present: None ST segment elevation in: None ST segment depression in: None QTc: normal QRS morphology: Present normal Interpretation: no acute changes Core Measures AMI Core Measures Followed: Yes Discharge Plan Patient/Caregiver Discharge Instructions Pt seen by INSTRUCTOR NURSE/PA only: No Clinical Impression: Acute and chronic respiratory failure with hypercapnia, Acute exacerbation of chronic obstructive pulmonary disease Patient Disposition: Xfer As Outpt/Obs ([facility]) Condition: Fair Follow up with: Yamil Perry MD [Primary Care Provider] - Prescriptions: No Action potassium chloride 10 mEq tablet extended release 10 meq PO Q OTHER DAY Qty: 30 1RF Hold Instructions: Doctor's Order Rx Instructions: take w/ lasix metoprolol tartrate 25 mg tablet 25 mg PO BID Qty: 60 3RF alendronate 10 mg tablet 10 mg PO QDAY Qty: 90 3RF venlafaxine 37.5 mg capsule,extended release 24hr 37.5 mg PO QDAY Qty: 30 2RF Rx Instructions: Take with 75mg to make 112mg/day. venlafaxine 75 mg capsule,extended release 24hr 75 mg PO QDAY Qty: 30 2RF peg 3350-electrolytes [Golytely] 236-22.74-6.74 -5.86 gram recon soln 240 ml PO Q10M Qty: 4000 0RF (DME) Altera Nebulizer Handset Misc See Rx Instructions .Route Qty: 1 0RF Rx Instructions: As directed ipratropium-albuterol 0.5 mg-3 mg(2.5 mg base)/3 mL solution for nebulization 3 ml inhalation QID Qty: 180 3RF cholecalciferol (vitamin D3) 50 mcg (2,000 unit) capsule 50 mcg PO QDAY polyethylene glycol 3350 [Miralax] 17 gram/dose powder 17 g PO BID PRN (Reason: constipation) furosemide 40 mg tablet 40 mg PO QAM Qty: 30 5RF spironolactone 25 mg tablet 25 mg PO QDAY Qty: 30 5RF Breztri Aerosphere 160-9-4.8 mcg/actuation HFA aerosol inhaler 0RF guaifenesin 1,200 mg tablet extended release 12hr 1,200 mg PO BID Qty: 60 11RF Breztri Aerosphere 160-9-4.8 mcg/actuation HFA aerosol inhaler 0RF (DME) oxygen-air delivery systems calcium 600 mg Capsule 600 mg PO BID famotidine [Pepcid AC] 10 mg Tablet 10 mg PO QDAY albuterol sulfate 90 mcg/actuation HFA aerosol inhaler 2 puff inhalation Q6H PRN (Reason: shortness of breath or wheezing) Qty: 8.5 0RF prednisone 50 mg tablet 50 mg PO QDAY Qty: 5 0RF amoxicillin-pot clavulanate 875-125 mg tablet 1 tab PO BID Qty: 20 0RF
[2022-03-04] MEDS ORDERED: ONDANSETRON 4 MG/2 ML VIAL IV PRN (02:16)
--- NOTE | 2022-03-04 05:24 | Cat Scan Report ---
INDICATION: abd pain COMPARISON: Previous chest, abdomen, pelvis CT scan dated 03/31/2021 TECHNIQUE: Axial images were obtained through the abdomen and pelvis. Sagittally and coronally reformatted images. 80 mL Isovue 370 injected intravenously. Oral contrast material was not administered FINDINGS: Examination was initially interpreted by [facility] Lung bases:Mild peribronchial thickening suggests bronchitis. No focal abnormality Liver:Precontrast examination was not performed but the liver appears slightly low density. Hepatic steatosis is possible. There is no focal mass. Liver contour is smooth. Gallbladder, bilary:No calcified gallstones. No gallbladder wall thickening. No dilated intra or extrahepatic bile ducts. Spleen:No splenomegaly. Normal enhancement of splenic and portal veins. Pancreas:No pancreatic mass. No peripancreatic abnormality Adrenal glands:Negative Kidneys,ureters,bladder:No solid renal mass. No hydronephrosis. No obstructing or nonobstructing calculi. No hydroureter. No ureteral calculus. No bladder stone. No detectable bladder mass. Gastrointestinal:There is sigmoid colon diverticulosis. This is unchanged. No pericolonic fat stranding consistent with diverticulitis. No detectable colonic mass Mildly prominent fluid containing small bowel. This may indicate enteritis. No mechanical small bowel obstruction. No transition point Negative stomach and duodenum. No focal abnormality. Appendix: The appendix is negative Vascular:Negative abdominal aorta. Superior mesenteric artery and celiac trunk are normal. Normal opacification of the inferior mesenteric artery Lymphatic:No retroperitoneal or mesenteric adenopathy Mesentery, peritoneum: No free intraperitoneal fluid. No mesenteric or retroperitoneal mass. No intra-abdominal abscess. Reproductive:Prostate is not significantly enlarged Musculoskeletal:No lumbar compression fractures. Sacrum and pelvis are negative. No hip fracture. No abdominal wall or inguinal hernia IMPRESSION: 1. Mildly prominent fluid-filled small bowel. This is nonspecific but may be secondary to enteritis 2. Sigmoid colon diverticulosis without evidence for diverticulitis 3. Mildly low density liver The exam was performed using radiation dose optimization techniques including, but not limited to, automated exposure control, adjustment of the mA and/or kV according to patient size and use of iterative reconstruction technique. Interpreted and Authenticated by: Ty Ackerman 03/04/22
--- NOTE | 2022-03-04 05:26 | XRay Report ---
INDICATION: sob TECHNIQUE: AP portable semiupright chest x-ray COMPARISON: Chest CT scan dated 01/21/2022. Chest x-ray dated 01/18/2022, 12/27/2021 FINDINGS: Lungs:Patient has a history of emphysema. There is right upper lung lucency consistent with asymmetric emphysematous changes demonstrated on chest CT scan. Mild linear density at the left lung base consistent with atelectasis or scarring. No acute parenchymal infiltrate or mass Heart, vascular:No significant cardiomegaly. Pulmonary vascularity is normal. No pulmonary edema or pulmonary congestion Mediastinum, angela:No mediastinal widening. No hilar mass Pleura:No pleural fluid. No pleural-based mass or calcification Skeletal:Previous T5 vertebroplasty IMPRESSION: 1. Emphysema 2. No acute abnormality. No interval change since 01/18/2022 Interpreted and Authenticated by: Ty Ackerman 03/04/22
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
[2022-03-04] MEDS ORDERED: LABETALOL 5 MG/ML ML IV PRN (07:53)
[2022-03-04] MEDS ORDERED: hydrALAZINE 20 MG/ML VIAL IV PRN (07:53)
[2022-03-04] MEDS ORDERED: SENNOSIDES 1 TABLET PO PRN (07:58)
[2022-03-04] MEDS ORDERED: MAGNESIUM SULFATE 2 GM/50 ML BAG IV PRN (07:58)
[2022-03-04] MEDS ORDERED: POTASSIUM CHLORIDE 20 MEQ TABLET PO PRN ×2 (07:58)
[2022-03-04] MEDS ORDERED: POLYETHYLENE GLYCOL 3350 17 GM PACKET PO PRN (07:58)
[2022-03-04] MEDS ORDERED: HYDROcodone/APAP 5/325MG TABLET PO PRN (07:58)
[2022-03-04] MEDS ORDERED: POTASSIUM CHLORIDE 40 MEQ in DEXTROSE 5% IN WATER 500 ML IV PRN (07:58)
[2022-03-04] MEDS: ACETAMINOPHEN 325 MG TABLET PO PRN ×2 (08:37→21:02)
[2022-03-04] MEDS: ENOXAPARIN 40 MG/0.4 ML SYRINGE SQ SCH (08:37)
[2022-03-04] MEDS: FAMOTIDINE 20 MG TABLET PO SCH (08:37)
[2022-03-04] MEDS: DOCUSATE SODIUM 100 MG CAPSULE PO SCH ×2 (08:37→21:02)
[2022-03-04] MEDS: FUROSEMIDE 40 MG TABLET PO SCH (08:38)
[2022-03-04] MEDS: METOPROLOL TARTRATE 25 MG TABLET PO SCH ×3 (08:38→22:04)
[2022-03-04] MEDS: SPIRONOLACTONE 25 MG TABLET PO SCH (08:38)
[2022-03-04] MEDS: VENLAFAXINE 37.5 MG TAB.ER.24H PO SCH (08:42)
[2022-03-04] MEDS: VENLAFAXINE 75 MG CAP.XL.24H PO SCH (08:42)
[2022-03-04] MEDS ORDERED: AZITHROMYCIN 500 MG in DEXTROSE 5% IN WATER 250 ML IV SCH (09:00)
[2022-03-04 09:04] LABS: Basophils # (Auto) 0.09 K/mcL (0.00-0.30); Eosinophils # (Auto) 0.38 K/mcL (0.00-0.70); Eosinophils % (Auto) 4.4 % (0.0-7.0); Hemoglobin 17.5 g/dL (13.7-17.5); Lymphocytes # (Auto) 1.84 K/mcL (1.50-4.80); Lymphocytes % (Auto) 21.4 % (15.5-49.0); Mean Cell Volume 95.3 fL (80.0-100.0); Mean Platelet Volume 10.3 fL (8.8-12.5); Monocytes # (Auto) 0.85 K/mcL (0.10-0.90); Monocytes % (Auto) 9.9 % (1.0-12.0); Neutrophils % (Auto) 62.6 % (38.0-78.0); Platelet Count 290 K/mcL (140-440); RBC 5.56 M/mcL (4.63-6.08); WBC 8.6 K/mcL (4.5-11.0)
[2022-03-04 09:22] LABS: ALT/SGPT 27 U/L (<40); AST/SGOT 16 U/L (<40); Albumin 4.1 gm/dL (3.2-5.2); Albumin/Globulin Ratio 1.3 (1.0-2.3); Alkaline Phosphatase 111 U/L (39-117); Bilirubin,Direct < 0.2 mg/dL (0-0.3); Bilirubin,Total 0.4 mg/dL (0.1-1.0); Blood Urea Nitrogen 12 mg/dL (6-20); Calcium 9.2 mg/dL (8.6-10.4); Carbon Dioxide 34 mmol/L (22-30); Chloride 97 mmol/L (96-108); Globulin 3.1 gm/dL (2.2-3.7); Glomerular Filtration Rate 84; Glucose 125 mg/dL (70-105); Lactate Dehydrogenase 186 U/L (135-225); Phosphorous 4.1 mg/dL (2.5-4.5); Triglycerides 144 mg/dL (<150); Uric Acid 8.2 mg/dL (2.5-8.0)
--- NOTE | 2022-03-04 09:25 | EKG ---
[facility] Test Date: 2022-03-03 Pat Name: Min Hoang Department: ED Room: Gender: Male Director Of Transportation: : 1965 Requested By: Jaylen Weems Order Number: [id number] Reading MD: Ty Cui M.D. Measurements Intervals [place] Rate: 102 P: 78 PA: 151 QRS: 92 QRSD: 98 T: 46 QT: 339 QTc: 442 Interpretive Statements Sinus tachycardia Borderline right axis deviation Electronically Signed On 03-04-2022 9:25:17 PST by Ty Cui M.D. /store/M0/[id number]
[2022-03-04] MEDS: BUDESONIDE 0.5 MG/2 ML AMPUL.NEB NEB SCH ×2 (10:03→19:25)
[2022-03-04] MEDS: IPRATROPIUM/ALBUTEROL 3 ML AMPUL.NEB NEB PRN (10:03)
[2022-03-04] MEDS ORDERED: methylPREDNISolone SOD SUCC 125 MG/2 ML VIAL IV ONE (10:13)
[2022-03-04] MEDS: LISINOPRIL 10 MG TABLET PO SCH (11:35)
[2022-03-04] MEDS: IPRATROPIUM/ALBUTEROL 3 ML AMPUL.NEB NEB SCH ×2 (13:09→19:25)
[2022-03-04] MEDS: methylPREDNISolone SOD SUCC 125 MG/2 ML VIAL IV SCH ×2 (15:38→21:01)
[2022-03-04] MEDS: 0.9 % SODIUM CHLORIDE 10 ML SYRINGE IV SCH ×2 (15:38→21:02)
[2022-03-04] MEDS ORDERED: traZODone HCL 100 MG TABLET PO SCH (21:00)
[2022-03-04] MEDS: NICOTINE 21 MG PATCH TOPICAL SCH (21:01)
[2022-03-05] MEDS: IPRATROPIUM/ALBUTEROL 3 ML AMPUL.NEB NEB PRN (01:20)
[2022-03-05] MEDS: IPRATROPIUM/ALBUTEROL 3 ML AMPUL.NEB NEB SCH ×4 (01:20→20:05)
[2022-03-05] MEDS: 0.9 % SODIUM CHLORIDE 10 ML SYRINGE IV SCH ×3 (05:30→20:55)
[2022-03-05] MEDS: methylPREDNISolone SOD SUCC 125 MG/2 ML VIAL IV SCH ×3 (05:30→20:54)
[2022-03-05] MEDS: BUDESONIDE 0.5 MG/2 ML AMPUL.NEB NEB SCH ×2 (07:30→20:05)
[2022-03-05] MEDS: FAMOTIDINE 20 MG TABLET PO SCH (08:23)
[2022-03-05] MEDS: METOPROLOL TARTRATE 25 MG TABLET PO SCH ×2 (08:23→20:54)
[2022-03-05] MEDS: VENLAFAXINE 37.5 MG TAB.ER.24H PO SCH (08:23)
[2022-03-05] MEDS: ENOXAPARIN 40 MG/0.4 ML SYRINGE SQ SCH (08:23)
[2022-03-05] MEDS: FUROSEMIDE 40 MG TABLET PO SCH (08:23)
[2022-03-05] MEDS: AZITHROMYCIN 250 MG TABLET PO SCH (08:23)
[2022-03-05] MEDS: VENLAFAXINE 75 MG CAP.XL.24H PO SCH (08:23)
[2022-03-05] MEDS: DOCUSATE SODIUM 100 MG CAPSULE PO SCH ×2 (08:23→20:54)
[2022-03-05] MEDS: SPIRONOLACTONE 25 MG TABLET PO SCH (08:23)
[2022-03-05 09:22] LABS: Basophils # (Auto) 0.03 K/mcL (0.00-0.30); Basophils % (Auto) 0.2 % (0.0-2.0); Eosinophils # (Auto) 0 K/mcL (0.00-0.70); Eosinophils % (Auto) 0 % (0.0-7.0); Hematocrit 51.6 % (40.1-51.0); Hemoglobin 16.8 g/dL (13.7-17.5); Lymphocytes # (Auto) 0.63 K/mcL (1.50-4.80); Lymphocytes % (Auto) 4.4 % (15.5-49.0); Mean Cell Volume 96.1 fL (80.0-100.0); Mean Corpuscular HGB Conc 32.6 g/dL (31.0-36.0); Mean Platelet Volume 10.8 fL (8.8-12.5); Monocytes # (Auto) 0.31 K/mcL (0.10-0.90); Monocytes % (Auto) 2.1 % (1.0-12.0); Neutrophils % (Auto) 92.7 % (38.0-78.0); Platelet Count 326 K/mcL (140-440); RBC 5.37 M/mcL (4.63-6.08); Red Cell Distribution Width 12.6 % (11.5-14.5); WBC 14.5 K/mcL (4.5-11.0)
[2022-03-05] MEDS: LISINOPRIL 10 MG TABLET PO SCH (09:54)
[2022-03-05 10:10] LABS: ALT/SGPT 22 U/L (<40); AST/SGOT 12 U/L (<40); Albumin 3.5 gm/dL (3.2-5.2); Albumin/Globulin Ratio 1.2 (1.0-2.3); Alkaline Phosphatase 92 U/L (39-117); Bilirubin,Total 0.2 mg/dL (0.1-1.0); Blood Urea Nitrogen 17 mg/dL (6-20); Calcium 8.7 mg/dL (8.6-10.4); Carbon Dioxide 30 mmol/L (22-30); Chloride 97 mmol/L (96-108); Glomerular Filtration Rate 84; Glucose 157 mg/dL (70-105)
--- NOTE | 2022-03-05 11:23 | Internal Med Progress Note ---
SUBJECTIVE Subjective Patient information: Note initiated : 03/05/22 at 11:22 am Service Date, if different from initiated Date: [] Patient: Mni Hoang 56 y/o M admitted on 03/04/22 for chest pain, hypoxic resp failure. Chief Complaint: [] Interval history: Mr. Hoang is a 56 year old M Presents ED with shortness of breath past few days. Patient has had been increasing cough and increased frequency. Also complains of some abdominal distention and rib pain which is the main reason he came in. Does report some increased swelling in his feet when specifically asked. Blood pressure also noted to be high and he says it typically runs high. He is on a beta-arabella and it sounds like it might be on that for chronic tachycardia. Patient feels quite wheezy. Denies recent sick contacts. In the ED he was evaluated and found to have acute exacerbation of COPD requiring above baseline oxygen and requiring BiPAP for hypercapnic respiratory failure. Patient also found to be in hypertensive urgency CT abdomen pelvis unremarkable. Put on BiPAP sent to the unit. rapid covid/flu neg 03/05: Patient's was on BiPAP overnight last night, currently on 3 L/min of nasal cannula oxygen (baseline-2L/min at home). He also stated that he used CPAP at home while sleeping. He is complaining of improving degree of shortness of breath. He was coughing earlier this morning but denies any cough at the moment. He is coming of respiratory wheezings. He is complaining of left lateral chest wall pain when he coughs. He denies any anxiety. Will switch from BiPAP to CPAP tonight while sleeping. Continue to wean down supplemental oxygen's as tolerated we will keep SPO2 above or equal to 88%. Continue breathing treatment with DuoNeb, Pulmicort, systemic steroid with Solu- Medrol, and azithromycin. Physical therapy evaluation and treatments. Constitutional Vitals: Vital Signs Temp Pulse Resp BP Pulse Ox O2 Del Method O2 Flow Rate 36.8 C 80 25 H 100/70 93 3 03/05/22 08:01 03/05/22 09:40 03/05/22 09:40 03/05/22 09:40 03/05/22 09:40 03/05/22 09:40 03/05/22 09:40 Period Temp Pulse Resp BP Sys/Garcia Pulse Ox O2 Del Method O2 Flow Rate Last 24 Hr 36.1 C-36.8 C 64-92 12- 83-164/64-90 90-97 BiPAP-Nasal Cannula 2-5 Intake and Output 03/04/22 03/05/22 03/05/22 19:59 03:59 11:59 Intake Total 600 664 200 Output Total 400 Balance 600 264 200 Weight 86.954 kg Intake & Output: Intake & Output 03/04/22 03/05/22 03/05/22 19:59 03:59 11:59 Intake Total 600 664 200 Output Total 400 Balance 600 264 200 Weight 86.954 kg Intake: Oral 600 664 200 Output: Void Amount 400 Other: Meal Dinner 2 cans soup, 2 cheese, 6 crackers Breakfast Percent of Meal Consumed 100% 100% 100% Feeding Ability Independent Independent Urine Appearance Clear Clear Urine Color Dark Yellow Light Christine Stool Size Moderate Stool Color Brown Stool Consistency Soft # Voids 1 General appearance: average body habitus, cooperative and no acute distress Head Head exam: Present atraumatic and normal inspection Eye Eye exam: Present normal appearance ENT ENT exam: Present mucous membranes moist, normal exam and normal external ear exam Additional comments: Nasal cannula in place Neck Neck exam: Present normal inspection Respiratory Respiratory exam: Present decreased breath sounds and wheezes Cardiovascular Cardiovascular exam: Present normal rate and rhythm GI/Abdominal GI/Abdominal exam: Present normal bowel sounds Back Exam Back exam: Present normal inspection Neurological Exam Neurological exam: Present alert and oriented X3 Skin Skin exam: Present intact and warm OBJ DATA Labs CBC & Chem 7: 03/05/22 05:15 03/05/22 05:15 Labs: Abnormal Lab Results 03/05/22 03/05/22 03/04/22 05:15 05:15 11:06 WBC 14.5 H Hct 51.6 H Immature Gran % (Auto) 0.6 H Neut % (Auto) 92.7 H Lymph % (Auto) 4.4 L Lymph # (Auto) 0.63 L Immature Gran # 0.08 H Absolute Neutrophils 13.40 H POC pH 7.25 L POC pCO2 77.1 H* POC HCO3 33.9 H POC ABG Base Excess 7.0 H POC VBG pCO2 at Temp POC VBG HCO3 POC VBG Total CO2 POC VBG Base Excess Carbon Dioxide POC Total CO2 36.0 H Glucose 157 H POC Glucose Uric Acid POC WB Ioniz Calcium 03/04/22 03/04/22 03/04/22 08:15 08:15 00:40 WBC Hct 53.0 H Immature Gran % (Auto) 0.7 H Neut % (Auto) Lymph % (Auto) Lymph # (Auto) Immature Gran # 0.06 H Absolute Neutrophils POC pH POC pCO2 POC HCO3 POC ABG Base Excess POC VBG pCO2 at Temp 71.5 H* POC VBG HCO3 37.8 H POC VBG Total CO2 40.0 H POC VBG Base Excess 12.0 H* Carbon Dioxide 34 H POC Total CO2 Glucose 125 H POC Glucose Uric Acid 8.2 H POC WB Ioniz Calcium 03/04/22 03/04/22 00:39 00:20 WBC Hct 52.1 H Immature Gran % (Auto) Neut % (Auto) Lymph % (Auto) Lymph # (Auto) Immature Gran # Absolute Neutrophils POC pH POC pCO2 POC HCO3 POC ABG Base Excess POC VBG pCO2 at Temp POC VBG HCO3 POC VBG Total CO2 POC VBG Base Excess Carbon Dioxide POC Total CO2 38.0 H Glucose POC Glucose 134 H Uric Acid POC WB Ioniz Calcium 1.14 L Meds: Medications Acetaminophen (Acetaminophen 325 Mg Tablet) 650 mg PO Q6HP PRN; Protocol PRN Reason: Per Pain Protocol/Fever > 101 Last Admin: 03/04/22 21:02 Dose: 650 mg Hydrocodone Bitart/Acetaminophen (Hydrocodone/Apap 5/325mg Tablet) 1 tab PO Q4HP PRN PRN Reason: PAIN LEVEL 3-6 Albuterol/Ipratropium (Ipratropium/Albuterol 3 Ml Ampul.Neb) 3 ml NEB Q6HRT HOMER Last Admin: 03/05/22 07:30 Dose: 3 ml Albuterol/Ipratropium (Ipratropium/Albuterol 3 Ml Ampul.Neb) 3 ml NEB Q4HP PRN PRN Reason: Shortness Of Breath Last Admin: 03/05/22 01:20 Dose: 3 ml Azithromycin (Azithromycin 250 Mg Tablet) 500 mg PO DAILY [facility] Stop: 03/06/22 09:01 Last Admin: 03/05/22 08:23 Dose: 500 mg Budesonide (Budesonide 0.5 Mg/2 Ml Ampul.Neb) 0.5 mg NEB Q12 HOMER Last Admin: 03/05/22 07:30 Dose: 0.5 mg Docusate Sodium (Docusate Sodium 100 Mg Capsule) 100 mg PO BID [facility] Last Admin: 03/05/22 08:23 Dose: 100 mg Enoxaparin Sodium (Enoxaparin 40 Mg/0.4 Ml Syringe) 40 mg SQ DAILY [facility] Last Admin: 03/05/22 08:23 Dose: 40 mg Famotidine (Famotidine 20 Mg Tablet) 10 mg PO DAILY [facility] Last Admin: 03/05/22 08:23 Dose: 10 mg Furosemide (Furosemide 40 Mg Tablet) 40 mg PO QAM [facility] Last Admin: 03/05/22 08:23 Dose: 40 mg Hydralazine HCl (Hydralazine 20 Mg/Ml Vial) 0 mg IV Q2HP PRN PRN Reason: Hypertension Potassium Chloride 40 meq/ (Dextrose) 520 mls @ 130 mls/hr IV UD PRN PRN Reason: Potassium < 3 Magnesium Sulfate (Magnesium Sulfate) 2 gm in 50 mls @ 50 mls/hr IV UD PRN PRN Reason: Magnesium </= 1.6 Labetalol HCl (Labetalol 5 Mg/Ml Ml) 0 mg IV Q2HP PRN PRN Reason: Hypertension Methylprednisolone Sodium Succinate (Methylprednisolone Sod Succ 125 Mg/2 Ml Vial) 62.5 mg IV Q8 [facility] Last Admin: 03/05/22 05:30 Dose: 62.5 mg Metoprolol Tartrate (Metoprolol Tartrate 25 Mg Tablet) 25 mg PO BID [facility] Last Admin: 03/05/22 08:23 Dose: 25 mg Nicotine (Nicotine 21 Mg Patch) 21 mg TOPICAL DAILY@2100 [facility] Last Admin: 03/04/22 21:01 Dose: 21 mg Ondansetron HCl (Ondansetron 4 Mg/2 Ml Vial) 4 mg IV Q4HP PRN; Protocol PRN Reason: Nausea And Vomiting Alendronate 10 Mg (Tablet) 1 dose PO DAILY [facility] Last Admin: 03/05/22 08:42 Dose: Not Given Polyethylene Glycol (Polyethylene Glycol 3350 17 Gm Packet) 17 gm PO DAILYP PRN PRN Reason: Constipation Potassium Chloride (Potassium Chloride 20 Meq Tablet) 40 meq PO UD PRN PRN Reason: Potssium is 3-3.5 Potassium Chloride (Potassium Chloride 20 Meq Tablet) 40 meq PO UD PRN PRN Reason: Potassium < 3 Senna (Sennosides 1 Tablet) 2 tab PO DAILYP PRN PRN Reason: Constipation Sodium Chloride (0.9 % Sodium Chloride 10 Ml Syringe) 10 ml IV Q8 [facility] Last Admin: 03/05/22 05:30 Dose: 10 ml Spironolactone (Spironolactone 25 Mg Tablet) 25 mg PO QDAY [facility] Last Admin: 03/05/22 08:23 Dose: 25 mg Venlafaxine HCl (Venlafaxine 37.5 Mg Tab.Er.24h) 37.5 mg PO QDAY [facility] Last Admin: 03/05/22 08:23 Dose: 37.5 mg Venlafaxine HCl (Venlafaxine 75 Mg Cap.Xl.24h) 75 mg PO QDAY [facility] Last Admin: 03/05/22 08:23 Dose: 75 mg A/P Assessment and plan (1) Acute exacerbation of chronic obstructive pulmonary disease: Status: Acute (2) Obstructive sleep apnea: Status: Chronic (3) Costochondritis: Status: Chronic (4) GERD (gastroesophageal reflux disease): Status: Chronic Qualifiers: Esophagitis presence: without esophagitis Qualified Code(s): K21.9 - Gastro-esophageal reflux disease without esophagitis (5) Hypertension: Status: Chronic Qualifiers: Hypertension type: unspecified Qualified Code(s): I10 - Essential (primary) hypertension (6) Depression: Status: Chronic (7) Anxiety: Status: Chronic (8) Cigarette smoker: Status: Acute Narrative A/P Narrative: Assessment and Plans: 1. COPD exacerbation: Inpatient PCU telemetry Continue to wean down supplemental oxygen therapy, titrate to achieve spo2>=88%. Baseline=2L/min at home Pulmicort DuoNEB NEB q6hr scheduled and q4hr PRN wheezing/shortness of breath Solu-Medrol Azithromycin Physical therapy Occupational therapy 2. Obstructive sleep apnea: Will switch from BiPAP to CPAP tonight while sleeping 3. Cigarette smoker: Nicotine replacement therapy 4. Essential Hypertension: Lasix PO Metoprolol tartrate Aldactone 5. Anxiety/Depression: Venlafaxine 6. Costochondritis: Ibuprofen PRN chest wall pain 7. GERD: Pepcid GI ppx: Pepcid DVT ppx: Lovenox Code status: Full Prognosis: guarded Disposition: inpatient PCU telemetry; PT OT Time Spent With Patient Time: Total time spent is greater than 50% in coordination of care (as documented) at patient's floor/unit and/or counseling patient: Total time spent with greater than 50% in coordination of care (as documented) at patient's floor/unit and/or counseling patient:: 25 - 35 minutes
[2022-03-05] MEDS ORDERED: guaiFENesin/DEXTROMETHORPHAN ORAL SOL PO PRN (11:32)
[2022-03-05] MEDS: ACETAMINOPHEN 325 MG TABLET PO PRN (20:54)
[2022-03-05] MEDS: NICOTINE 21 MG PATCH TOPICAL SCH (20:54)
[2022-03-06] MEDS: IPRATROPIUM/ALBUTEROL 3 ML AMPUL.NEB NEB SCH ×4 (01:44→19:55)
[2022-03-06] MEDS: IBUPROFEN 600 MG TABLET PO PRN (04:06)
[2022-03-06] MEDS: methylPREDNISolone SOD SUCC 125 MG/2 ML VIAL IV SCH ×3 (05:19→22:36)
[2022-03-06] MEDS: 0.9 % SODIUM CHLORIDE 10 ML SYRINGE IV SCH ×3 (05:20→22:37)
[2022-03-06 07:43] LABS: Basophils # (Auto) 0.02 K/mcL (0.00-0.30); Basophils % (Auto) 0.1 % (0.0-2.0); Eosinophils # (Auto) 0 K/mcL (0.00-0.70); Eosinophils % (Auto) 0 % (0.0-7.0); Hematocrit 48.4 % (40.1-51.0); Hemoglobin 15.5 g/dL (13.7-17.5); Lymphocytes # (Auto) 0.68 K/mcL (1.50-4.80); Lymphocytes % (Auto) 3.7 % (15.5-49.0); Mean Cell Volume 96.8 fL (80.0-100.0); Mean Platelet Volume 10.9 fL (8.8-12.5); Monocytes # (Auto) 0.87 K/mcL (0.10-0.90); Monocytes % (Auto) 4.7 % (1.0-12.0); Neutrophils % (Auto) 90.8 % (38.0-78.0); Platelet Count 301 K/mcL (140-440); Red Cell Distribution Width 12.6 % (11.5-14.5); WBC 18.4 K/mcL (4.5-11.0)
[2022-03-06] MEDS: BUDESONIDE 0.5 MG/2 ML AMPUL.NEB NEB SCH ×2 (08:00→19:55)
[2022-03-06 08:04] LABS: ALT/SGPT 20 U/L (<40); AST/SGOT 10 U/L (<40); Albumin 3.5 gm/dL (3.2-5.2); Albumin/Globulin Ratio 1.3 (1.0-2.3); Alkaline Phosphatase 86 U/L (39-117); Bilirubin,Total < 0.2 mg/dL (0.1-1.0); Blood Urea Nitrogen 21 mg/dL (6-20); Calcium 8.9 mg/dL (8.6-10.4); Carbon Dioxide 31 mmol/L (22-30); Chloride 97 mmol/L (96-108); Globulin 2.7 gm/dL (2.2-3.7); Glomerular Filtration Rate 95; Glucose 178 mg/dL (70-105)
[2022-03-06] MEDS ORDERED: FLU VACC QS2022-23(6MOS UP)/PF 60 MCG/0.5 ML SYRINGE IM ONE (09:00)
[2022-03-06] MEDS: ENOXAPARIN 40 MG/0.4 ML SYRINGE SQ SCH (09:23)
[2022-03-06] MEDS: AZITHROMYCIN 250 MG TABLET PO SCH (09:24)
[2022-03-06] MEDS: METOPROLOL TARTRATE 25 MG TABLET PO SCH ×2 (09:24→22:37)
[2022-03-06] MEDS: SPIRONOLACTONE 25 MG TABLET PO SCH (09:24)
[2022-03-06] MEDS: FUROSEMIDE 40 MG TABLET PO SCH (09:24)
[2022-03-06] MEDS: VENLAFAXINE 75 MG CAP.XL.24H PO SCH (09:24)
[2022-03-06] MEDS: DOCUSATE SODIUM 100 MG CAPSULE PO SCH ×3 (09:24→22:35)
[2022-03-06] MEDS: VENLAFAXINE 37.5 MG TAB.ER.24H PO SCH (09:24)
[2022-03-06] MEDS: FAMOTIDINE 20 MG TABLET PO SCH (09:25)
--- NOTE | 2022-03-06 11:53 | Internal Med Progress Note ---
SUBJECTIVE Subjective Patient information: Note initiated : 03/06/22 at 11:52 am Service Date, if different from initiated Date: [] Patient: Min Hoang a 56 y/o M admitted on 03/04/22 for chest pain, hypoxic resp failure. Chief Complaint: [] Interval history: Mr. Hoang is a 56 year old M Presents ED with shortness of breath past few days. Patient has had been increasing cough and increased frequency. Also complains of some abdominal distention and rib pain which is the main reason he came in. Does report some increased swelling in his feet when specifically asked. Blood pressure also noted to be high and he says it typically runs high. He is on a beta-arabella and it sounds like it might be on that for chronic tachycardia. Patient feels quite wheezy. Denies recent sick contacts. In the ED he was evaluated and found to have acute exacerbation of COPD requiring above baseline oxygen and requiring BiPAP for hypercapnic respiratory failure. Patient also found to be in hypertensive urgency CT abdomen pelvis unremarkable. Put on BiPAP sent to the unit. rapid covid/flu neg 03/05: Patient's was on BiPAP overnight last night, currently on 3 L/min of nasal cannula oxygen (baseline-2L/min at home). He also stated that he used CPAP at home while sleeping. He is complaining of improving degree of shortness of breath. He was coughing earlier this morning but denies any cough at the moment. He is coming of respiratory wheezings. He is complaining of left lateral chest wall pain when he coughs. He denies any anxiety. Will switch from BiPAP to CPAP tonight while sleeping. Continue to wean down supplemental oxygen's as tolerated we will keep SPO2 above or equal to 88%. Continue breathing treatment with DuoNeb, Pulmicort, systemic steroid with Solu- Medrol, and azithromycin. Physical therapy evaluation and treatments. 03/06: Patient's stated that he had a nightmare yesterday, and was claustrophobic from the CPAP machine, but was otherwise able to at least partially tolerate the CPAP machine. Patient is currently on 3 L/min nasal cannula oxygen with a baseline of 2 L/min at home. Improving degree of shortness of breath. He is complaining of nonproductive cough with mild respiratory wheezing at the moment. He denies any chest pain or chest pressure. He denies any subjective fever, chills, or diaphoresis. Transfer to inpatient med surg. Continue to wean down supplemental oxygen's as tolerated we will keep SPO2 above or equal to 88%. Continue breathing treatment with DuoNeb, Pulmicort, systemic steroid with Solu-Medrol, and azithromycin. Physical and occupational therapies evaluations and treatments. Constitutional Vitals: Vital Signs Temp Pulse Resp BP Pulse Ox O2 Del Method O2 Flow Rate 36.2 C 80 14 116/66 94 3 03/06/22 08:00 03/06/22 10:45 03/06/22 10:45 03/06/22 10:01 03/06/22 10:01 03/06/22 10:45 03/06/22 10:45 Period Temp Pulse Resp BP Sys/Garcia Pulse Ox O2 Del Method O2 Flow Rate Last 24 Hr 36.2 C-37.1 C 71-112 13-23 89-137/61-89 90-96 CPAP-Nasal Cannula, CPAP 2-3 Intake and Output 03/05/22 03/06/22 03/06/22 19:59 03:59 11:59 Intake Total 0128 289 5076 Output Total 325 500 Balance 967 156 7531 Weight 87.997 kg Intake & Output: Intake & Output 03/05/22 03/06/22 03/06/22 19:59 03:59 11:59 Intake Total 1639 666 1463 Output Total 325 500 Balance 065 685 3166 Weight 87.997 kg Intake: Oral 5395 904 6978 Output: Void Amount 325 500 Other: Meal Dinner 3 cans low na+ soup, crackers x 8, cheese stick Breakfast Percent of Meal Consumed 100% 100% 100% Feeding Ability Independent Independent Independent Urine Appearance Clear Clear Urine Color Yellow Yellow Yellow Dark Yellow Urine Odor Normal Stool Size Large Stool Color Brown Stool Consistency Soft Formed # Voids 1 General appearance: cooperative, no acute distress and obese Head Head exam: Present atraumatic and normal inspection Eye Eye exam: Present normal appearance ENT ENT exam: Present mucous membranes moist, normal exam and normal external ear exam Additional comments: Nasal cannula in place Neck Neck exam: Present normal inspection Respiratory Respiratory exam: Present rhonchi and wheezes Cardiovascular Cardiovascular exam: Present normal rate and rhythm GI/Abdominal GI/Abdominal exam: Present normal bowel sounds Back Exam Back exam: Present normal inspection Neurological Exam Neurological exam: Present alert and oriented X3 Skin Skin exam: Present intact and warm OBJ DATA Labs CBC & Chem 7: 03/06/22 05:30 03/06/22 05:30 Labs: Abnormal Lab Results 03/06/22 03/06/22 03/05/22 05:30 05:30 05:15 WBC 18.4 H Hct Immature Gran % (Auto) 0.7 H Neut % (Auto) 90.8 H Lymph % (Auto) 3.7 L Lymph # (Auto) 0.68 L Immature Gran # 0.13 H Absolute Neutrophils 16.65 H POC pH POC pCO2 POC HCO3 POC ABG Base Excess POC VBG pCO2 at Temp POC VBG HCO3 POC VBG Total CO2 POC VBG Base Excess Carbon Dioxide 31 H POC Total CO2 BUN 21 H Glucose 178 H 157 H POC Glucose Uric Acid POC WB Ioniz Calcium 03/05/22 03/04/22 03/04/22 05:15 11:06 08:15 WBC 14.5 H Hct 51.6 H 53.0 H Immature Gran % (Auto) 0.6 H 0.7 H Neut % (Auto) 92.7 H Lymph % (Auto) 4.4 L Lymph # (Auto) 0.63 L Immature Gran # 0.08 H 0.06 H Absolute Neutrophils 13.40 H POC pH 7.25 L POC pCO2 77.1 H* POC HCO3 33.9 H POC ABG Base Excess 7.0 H POC VBG pCO2 at Temp POC VBG HCO3 POC VBG Total CO2 POC VBG Base Excess Carbon Dioxide POC Total CO2 36.0 H BUN Glucose POC Glucose Uric Acid POC WB Ioniz Calcium 03/04/22 03/04/22 03/04/22 08:15 00:40 00:39 WBC Hct Immature Gran % (Auto) Neut % (Auto) Lymph % (Auto) Lymph # (Auto) Immature Gran # Absolute Neutrophils POC pH POC pCO2 POC HCO3 POC ABG Base Excess POC VBG pCO2 at Temp 71.5 H* POC VBG HCO3 37.8 H POC VBG Total CO2 40.0 H POC VBG Base Excess 12.0 H* Carbon Dioxide 34 H POC Total CO2 38.0 H BUN Glucose 125 H POC Glucose 134 H Uric Acid 8.2 H POC WB Ioniz Calcium 1.14 L 03/04/22 00:20 WBC Hct 52.1 H Immature Gran % (Auto) Neut % (Auto) Lymph % (Auto) Lymph # (Auto) Immature Gran # Absolute Neutrophils POC pH POC pCO2 POC HCO3 POC ABG Base Excess POC VBG pCO2 at Temp POC VBG HCO3 POC VBG Total CO2 POC VBG Base Excess Carbon Dioxide POC Total CO2 BUN Glucose POC Glucose Uric Acid POC WB Ioniz Calcium Meds: Medications Acetaminophen (Acetaminophen 325 Mg Tablet) 650 mg PO Q6HP PRN; Protocol PRN Reason: Per Pain Protocol/Fever > 101 Last Admin: 03/05/22 20:54 Dose: 650 mg Hydrocodone Bitart/Acetaminophen (Hydrocodone/Apap 5/325mg Tablet) 1 tab PO Q4HP PRN PRN Reason: PAIN LEVEL 3-6 Albuterol/Ipratropium (Ipratropium/Albuterol 3 Ml Ampul.Neb) 3 ml NEB Q6HRT [facility] Last Admin: 03/06/22 08:00 Dose: 3 ml Albuterol/Ipratropium (Ipratropium/Albuterol 3 Ml Ampul.Neb) 3 ml NEB Q4HP PRN PRN Reason: Shortness Of Breath Last Admin: 03/05/22 01:20 Dose: 3 ml Budesonide (Budesonide 0.5 Mg/2 Ml Ampul.Neb) 0.5 mg NEB Q12 [facility] Last Admin: 03/06/22 08:00 Dose: 0.5 mg Docusate Sodium (Docusate Sodium 100 Mg Capsule) 100 mg PO BID [facility] Last Admin: 03/06/22 09:24 Dose: 100 mg Enoxaparin Sodium (Enoxaparin 40 Mg/0.4 Ml Syringe) 40 mg SQ DAILY [facility] Last Admin: 03/06/22 09:23 Dose: 40 mg Famotidine (Famotidine 20 Mg Tablet) 10 mg PO DAILY [facility] Last Admin: 03/06/22 09:25 Dose: 10 mg Furosemide (Furosemide 40 Mg Tablet) 40 mg PO QAM [facility] Last Admin: 03/06/22 09:24 Dose: 40 mg Guaifenesin (Guaifenesin/Dextromethorphan Oral Radha) 10 ml PO Q4HP PRN PRN Reason: Cough Hydralazine HCl (Hydralazine 20 Mg/Ml Vial) 0 mg IV Q2HP PRN PRN Reason: Hypertension Potassium Chloride 40 meq/ (Dextrose) 520 mls @ 130 mls/hr IV UD PRN PRN Reason: Potassium < 3 Magnesium Sulfate (Magnesium Sulfate) 2 gm in 50 mls @ 50 mls/hr IV UD PRN PRN Reason: Magnesium </= 1.6 Ibuprofen (Ibuprofen 600 Mg Tablet) 600 mg PO QIDP PRN; Protocol PRN Reason: PAIN/FEVER > 101 Last Admin: 03/06/22 04:06 Dose: 600 mg Labetalol HCl (Labetalol 5 Mg/Ml Ml) 0 mg IV Q2HP PRN PRN Reason: Hypertension Methylprednisolone Sodium Succinate (Methylprednisolone Sod Succ 125 Mg/2 Ml Vial) 62.5 mg IV Q8 [facility] Last Admin: 03/06/22 05:19 Dose: 62.5 mg Metoprolol Tartrate (Metoprolol Tartrate 25 Mg Tablet) 25 mg PO BID [facility] Last Admin: 03/06/22 09:24 Dose: 25 mg Nicotine (Nicotine 21 Mg Patch) 21 mg TOPICAL DAILY@2100 [facility] Last Admin: 03/05/22 20:54 Dose: 21 mg Ondansetron HCl (Ondansetron 4 Mg/2 Ml Vial) 4 mg IV Q4HP PRN; Protocol PRN Reason: Nausea And Vomiting Alendronate 10 Mg (Tablet) 1 dose PO DAILY [facility] Last Admin: 03/06/22 09:25 Dose: Not Given Polyethylene Glycol (Polyethylene Glycol 3350 17 Gm Packet) 17 gm PO DAILYP PRN PRN Reason: Constipation Potassium Chloride (Potassium Chloride 20 Meq Tablet) 40 meq PO UD PRN PRN Reason: Potssium is 3-3.5 Senna (Sennosides 1 Tablet) 2 tab PO DAILYP PRN PRN Reason: Constipation Sodium Chloride (0.9 % Sodium Chloride 10 Ml Syringe) 10 ml IV Q8 [facility] Last Admin: 03/06/22 05:20 Dose: 10 ml Spironolactone (Spironolactone 25 Mg Tablet) 25 mg PO QDAY [facility] Last Admin: 03/06/22 09:24 Dose: 25 mg Venlafaxine HCl (Venlafaxine 37.5 Mg Tab.Er.24h) 37.5 mg PO QDAY [facility] Last Admin: 03/06/22 09:24 Dose: 37.5 mg Venlafaxine HCl (Venlafaxine 75 Mg Cap.Xl.24h) 75 mg PO QDAY [facility] Last Admin: 03/06/22 09:24 Dose: 75 mg A/P Assessment and plan (1) Acute exacerbation of chronic obstructive pulmonary disease: Status: Acute (2) Obstructive sleep apnea: Status: Chronic (3) Costochondritis: Status: Chronic (4) GERD (gastroesophageal reflux disease): Status: Chronic Qualifiers: Esophagitis presence: without esophagitis Qualified Code(s): K21.9 - Gastro-esophageal reflux disease without esophagitis (5) Hypertension: Status: Chronic Qualifiers: Hypertension type: unspecified Qualified Code(s): I10 - Essential (primary) hypertension (6) Depression: Status: Chronic (7) Anxiety: Status: Chronic (8) Cigarette smoker: Status: Acute Narrative A/P Narrative: Assessment and Plans: 1. COPD exacerbation: Inpatient med surg Continue to wean down supplemental oxygen therapy, titrate to achieve spo2>=88%. Baseline=2L/min at home Pulmicort DuoNEB NEB q6hr scheduled and q4hr PRN wheezing/shortness of breath Solu-Medrol Azithromycin, finishing on 03/06 Physical therapy evaluation and treatment Occupational therapy evaluation and treatment 2. Obstructive sleep apnea: Continue CPAP tonight while sleeping 3. Cigarette smoker: Nicotine replacement therapy 4. Essential Hypertension: Lasix PO Metoprolol tartrate Aldactone 5. Anxiety/Depression: Venlafaxine 6. Costochondritis: Ibuprofen PRN chest wall pain 7. GERD: Pepcid GI ppx: Pepcid DVT ppx: Lovenox Code status: Full Prognosis: Stable Disposition: inpatient med surg; PT OT Time Spent With Patient Time: Total time spent is greater than 50% in coordination of care (as documented) at patient's floor/unit and/or counseling patient: Total time spent with greater than 50% in coordination of care (as documented) at patient's floor/unit and/or counseling patient:: 25 - 35 minutes
[2022-03-06] MEDS: NICOTINE 21 MG PATCH TOPICAL SCH (22:37)
[2022-03-07] MEDS: IPRATROPIUM/ALBUTEROL 3 ML AMPUL.NEB NEB SCH ×3 (00:50→14:39)
[2022-03-07] MEDS: IBUPROFEN 600 MG TABLET PO PRN (04:31)
[2022-03-07] MEDS: methylPREDNISolone SOD SUCC 125 MG/2 ML VIAL IV SCH ×2 (05:45→14:39)
[2022-03-07] MEDS: 0.9 % SODIUM CHLORIDE 10 ML SYRINGE IV SCH ×2 (05:45→14:39)
[2022-03-07 07:21] LABS: Basophils # (Auto) 0.02 K/mcL (0.00-0.30); Basophils % (Auto) 0.1 % (0.0-2.0); Eosinophils # (Auto) 0 K/mcL (0.00-0.70); Eosinophils % (Auto) 0 % (0.0-7.0); Hematocrit 50.7 % (40.1-51.0); Hemoglobin 16.4 g/dL (13.7-17.5); Lymphocytes # (Auto) 0.53 K/mcL (1.50-4.80); Lymphocytes % (Auto) 3.4 % (15.5-49.0); Mean Cell Volume 93.9 fL (80.0-100.0); Mean Corpuscular HGB Conc 32.3 g/dL (31.0-36.0); Mean Platelet Volume 10.7 fL (8.8-12.5); Monocytes # (Auto) 0.46 K/mcL (0.10-0.90); Neutrophils % (Auto) 92.9 % (38.0-78.0); Platelet Count 315 K/mcL (140-440); Red Cell Distribution Width 12.5 % (11.5-14.5); WBC 15.5 K/mcL (4.5-11.0)
[2022-03-07] MEDS: BUDESONIDE 0.5 MG/2 ML AMPUL.NEB NEB SCH (07:36)
[2022-03-07 08:02] LABS: ALT/SGPT 22 U/L (<40); AST/SGOT 11 U/L (<40); Albumin 3.7 gm/dL (3.2-5.2); Albumin/Globulin Ratio 1.3 (1.0-2.3); Alkaline Phosphatase 94 U/L (39-117); Bilirubin,Total < 0.2 mg/dL (0.1-1.0); Blood Urea Nitrogen 19 mg/dL (6-20); Calcium 8.8 mg/dL (8.6-10.4); Carbon Dioxide 28 mmol/L (22-30); Chloride 93 mmol/L (96-108); Globulin 2.9 gm/dL (2.2-3.7); Glomerular Filtration Rate 100; Glucose 253 mg/dL (70-105)
[2022-03-07] MEDS: DOCUSATE SODIUM 100 MG CAPSULE PO SCH (08:02)
[2022-03-07] MEDS: ACETAMINOPHEN 325 MG TABLET PO PRN (08:11)
[2022-03-07] MEDS: FAMOTIDINE 20 MG TABLET PO SCH (08:11)
[2022-03-07] MEDS: SPIRONOLACTONE 25 MG TABLET PO SCH (08:11)
[2022-03-07] MEDS: VENLAFAXINE 75 MG CAP.XL.24H PO SCH (08:12)
[2022-03-07] MEDS: ENOXAPARIN 40 MG/0.4 ML SYRINGE SQ SCH (08:12)
[2022-03-07] MEDS: FUROSEMIDE 40 MG TABLET PO SCH (08:12)
[2022-03-07] MEDS: METOPROLOL TARTRATE 25 MG TABLET PO SCH (08:12)
[2022-03-07] MEDS: VENLAFAXINE 37.5 MG TAB.ER.24H PO SCH (08:12)
--- NOTE | 2022-03-07 12:39 | Discharge Summary ---
Discharge Provider Provider IMPORTANT FOLLOW-UP INFORMATION FOR PCP: Patient information: Note initiated : 03/07/22 at 12:36 pm Service Date, if different from initiated Date: [] Patient: Min Hoang 56 y/o M admitted on 03/04/22 for chest pain, hypoxic resp failure. Chief Complaint: [] Date of admission: 03/04/22 07:58 Discharge date: 03/07/22 Primary care physician: Yamil Perry MD Attending physician on admission: Ho Dasilva Consults: 03/04/22 07:32 Consult to Physician [CONS] Routine Comment: Consulting Provider: Ho Dasilva Reason For Exam: Physician to Consult Attending physician on discharge: Chi Wolfgang Pui COURSE Hospital Course Hospital course: Mr. Hoang is a 56 year old M Presents ED with shortness of breath past few days. Patient has had been increasing cough and increased frequency. Also complains of some abdominal distention and rib pain which is the main reason he came in. Does report some increased swelling in his feet when specifically asked. Blood pressure also noted to be high and he says it typically runs high. He is on a beta-arabella and it sounds like it might be on that for chronic tachycardia. Patient feels quite wheezy. Denies recent sick contacts. In the ED he was evaluated and found to have acute exacerbation of COPD requiring above baseline oxygen and requiring BiPAP for hypercapnic respiratory failure. Patient also found to be in hypertensive urgency CT abdomen pelvis unremarkable. Put on BiPAP sent to the unit. rapid covid/flu neg 03/05: Patient's was on BiPAP overnight last night, currently on 3 L/min of nasal cannula oxygen (baseline-2L/min at home). He also stated that he used CPAP at home while sleeping. He is complaining of improving degree of shortness of breath. He was coughing earlier this morning but denies any cough at the moment. He is coming of respiratory wheezings. He is complaining of left lateral chest wall pain when he coughs. He denies any anxiety. Will switch from BiPAP to CPAP tonight while sleeping. Continue to wean down supplemental oxygen's as tolerated we will keep SPO2 above or equal to 88%. Continue breathing treatment with DuoNeb, Pulmicort, systemic steroid with Solu- Medrol, and azithromycin. Physical therapy evaluation and treatments. 03/06: Patient's stated that he had a nightmare yesterday, and was claustrophobic from the CPAP machine, but was otherwise able to at least partially tolerate the CPAP machine. Patient is currently on 3 L/min nasal cannula oxygen with a baseline of 2 L/min at home. Improving degree of shortness of breath. He is complaining of nonproductive cough with mild respiratory wheezing at the moment. He denies any chest pain or chest pressure. He denies any subjective fever, chills, or diaphoresis. Transfer to inpatient med surg. Continue to wean down supplemental oxygen's as tolerated we will keep SPO2 above or equal to 88%. Continue breathing treatment with DuoNeb, Pulmicort, systemic steroid with Solu-Medrol, and azithromycin. Physical and occupational therapies evaluations and treatments. 03/07: Discharged home. 2 week PCP follow up appointment made for him. Rx sent to pharmacy. All questions were answered prior to patient being physically discharged. Discharge diagnosis: COPD exacerbation Time Spent with Patient Time attestation: Total time spent providing and/or coordinating discharge services: Time spent: Less than 30 minutes EXAM Constitutional Vitals: Temp Pulse Resp BP Pulse Ox O2 Del Method O2 Flow Rate 36.9 C 120 H 18 144/95 95 2 03/07/22 12:21 03/07/22 09:30 03/07/22 09:30 03/07/22 12:21 03/07/22 12:21 03/07/22 12:21 03/07/22 12:21 General appearance: cooperative and no acute distress Head Head exam: Present atraumatic and normocephalic Eye Eye exam: Present EOMI and PERRL ENT ENT exam: Present mucous membranes moist, normal exam and normal external ear exam Additional comments: Nasal cannula in place Neck Neck exam: Present normal inspection; Absent lymphadenopathy, tenderness or thyromegaly Respiratory Respiratory exam: Present wheezes; Absent accessory muscle use or respiratory distress Cardiovascular Cardiovascular exam: Present normal rate and rhythm; Absent JVD GI/Abdominal GI/Abdominal exam: Present normal bowel sounds and soft; Absent organomegaly or tenderness Rectal Rectal exam: Present deferred Extremities Exam Extremities exam: Present full ROM, normal capillary refill and normal inspection; Absent tenderness Neurological Exam Neurological exam: Present alert, CN II-XII intact and oriented X3; Absent motor sensory deficit Psychiatric Psychiatric exam: Present normal affect and normal mood; Absent anxious or depressed Skin Skin exam: Present dry and intact Discharge Data Data Completed and Pending Labs on day of discharge: Labs from last 24 hours 03/07/22 03/07/22 05:25 05:25 WBC 15.5 H RBC 5.40 Hgb 16.4 Hct 50.7 MCV 93.9 MCH 30.4 MCHC 32.3 RDW 12.5 Plt Count 315 MPV 10.7 Immature Gran % (Auto) 0.6 H Neut % (Auto) 92.9 H Lymph % (Auto) 3.4 L Grady % (Auto) 3.0 Eos % (Auto) 0 Baso % (Auto) 0.1 Lymph # (Auto) 0.53 L Grady # (Auto) 0.46 Eos # (Auto) 0 Baso # (Auto) 0.02 Immature Gran # 0.10 H Absolute Neutrophils 14.39 H Sodium 134 Potassium 4.4 Chloride 93 L Carbon Dioxide 28 Anion Gap 13.0 BUN 19 Creatinine 0.8 GFR Calculation 100 Glucose 253 H Calcium 8.8 Magnesium 2.3 Total Bilirubin < 0.2 AST 11 ALT 22 Alkaline Phosphatase 94 Total Protein 6.6 Albumin 3.7 Globulin 2.9 Albumin/Globulin Ratio 1.3 Discharge Plan Patient/Caregiver Discharge Instructions Activity: increase activity as tolerated Diet: Regular Diet Prescriptions: New dextromethorphan-guaifenesin [Diabetic Tussin DM] 10-100 mg/5 mL Liquid 10 ml PO Q4HP PRN (Reason: Cough) Qty: 240 0RF nicotine 21 mg/24 hr Patch 24 Hour 21 mg topical DAILY@2100 Qty: 21 0RF Continued metoprolol tartrate 25 mg tablet 25 mg PO BID Qty: 60 3RF Rx Instructions: Told RN that he stopped taking this,"about a month ago," because,"it slows him down." alendronate 10 mg tablet 10 mg PO QDAY Qty: 90 3RF venlafaxine 37.5 mg capsule,extended release 24hr 37.5 mg PO QDAY Qty: 30 2RF Rx Instructions: Take with 75mg to make 112mg/day. venlafaxine 75 mg capsule,extended release 24hr 75 mg PO QDAY Qty: 30 2RF (DME) Altera Nebulizer Handset Misc See Rx Instructions .Route Qty: 1 0RF Rx Instructions: As directed ipratropium-albuterol 0.5 mg-3 mg(2.5 mg base)/3 mL solution for nebulization 3 ml inhalation QID Qty: 180 3RF furosemide 40 mg tablet 40 mg PO QAM Qty: 30 5RF Rx Instructions: Pt told this RN that he takes this med,"off and on," and that its,"usually because he forgets." spironolactone 25 mg tablet 25 mg PO QDAY Qty: 30 5RF Breztri Aerosphere 160-9-4.8 mcg/actuation HFA aerosol inhaler 2 puff inhalation BID 0RF (DME) oxygen-air delivery systems calcium 600 mg Capsule 600 mg PO BID famotidine [Pepcid AC] 10 mg Tablet 10 mg PO QDAY albuterol sulfate 90 mcg/actuation HFA aerosol inhaler 2 puff inhalation Q6H PRN (Reason: shortness of breath or wheezing) Qty: 8.5 0RF polyethylene glycol 3350 17 gram Powder In Packet 17 g PO BID MDD constipation Follow Up Plan Follow up with: Yamil Perry MD [Primary Care Provider] - Patient Disposition: Home, Self-Care Prognosis: Fair Rehab Potential: Good I certify that the patient requires SNF services: No Overall status at discharge: patient is back to baseline Discharge Orders: Discharge Order (Routine); Ordered 03/07/22 Ordered By: Kenny Gold
== END 2022-03-07 14:20 | disposition home or self-care (01) | DRG 190 ==
LOC: ICU 23:49 → ED 23:49 → ICU 03-04 03:43
PROVIDERS: ADMIT Internal Medicine; ATTEND Internal Medicine

== ENCOUNTER 2022-04-07 11:23 | Inpatient (IN) ==
[2022-04-07] MEDS ORDERED: IOPAMIDOL 100 ML BOTTLE IV ONE (11:24)
[2022-04-07] MEDS ORDERED: 0.9 % SODIUM CHLORIDE 500 ML IV ONE (11:31)
[2022-04-07] MEDS ORDERED: ALBUTEROL SULFATE 5 MG/ML NEB SOLUTION BOTTLE NEB ONE (11:46)
[2022-04-07] MEDS ORDERED: ALBUTEROL SULFATE 2.5 MG/3 ML NEBULIZER NEB STA (12:02)
--- NOTE | 2022-04-07 12:04 | Emergency Department Note ---
SOB HPI General Chief Complaint: Shortness of Breath/Dyspnea Stated Complaint: SOB Time Seen by Provider: 04/07/22 11:30 Source: patient Mode of arrival: wheelchair History of Present Illness HPI Narrative: Min Hoang is a 56-year-old male who presents to the emergency department with chief complaint of shortness of breath for the second time in 2 days. Testing for influenza was positive yesterday. The patient returned in lim[place] e with his return precautions complaining of increasing shortness of breath. He states he did not take his Lasix today but feels as though he is having additional trouble moving air. He reports a productive cough with yellowish/whitish sputum. Today he complains of global chest pain radiating up into his neck, and states he feels extremely stressed as his sister 4 days ago in a motor vehicle collision. The patient denies hemoptysis, abdominal pain, leg pain. He states he is unsure if he has gained weight, however he states he feels his pants have grown very tight in the waist in the past day or 2. He confirms occasional nausea. The patient confirms that he continues to smoke a few cigarettes a day. He denies all other acute complaints at this time. Related Data Home Medications Medication Instructions Recorded Confirmed oxygen-air delivery systems 03/11/21 04/07/22 calcium 600 mg capsule 600 mg PO BID 11/26/21 03/21/22 famotidine 10 mg tablet (Pepcid AC) 10 mg PO QDAY 11/26/21 03/21/22 polyethylene glycol 3350 17 gram 17 g PO BID y 03/04/22 03/21/22 oral powder packet Previous Rx's Medication Instructions Recorded ipratropium 0.5 mg-albuterol 3 mg 3 ml inhalation QID #180 mL 12/15/20 (2.5 mg base)/3 mL nebulization soln nebulizers (Altera Nebulizer #1 ea 12/15/20 Handset) metoprolol tartrate 25 mg tablet 25 mg PO BID HTN #60 tabs 03/29/21 alendronate 10 mg tablet 10 mg PO QDAY #90 tabs 04/30/21 spironolactone 25 mg tablet 25 mg PO QDAY #30 tabs 05/21/21 venlafaxine 37.5 mg 37.5 mg PO QDAY #30 caps 09/28/21 capsule,extended release 24 hr venlafaxine 75 mg capsule,extended 75 mg PO QDAY #30 caps 09/28/21 release 24 hr albuterol sulfate 90 mcg/actuation 2 puff inhalation Q6H PRN 12/27/21 aerosol inhaler shortness of breath or wheezing #8.5 grams nicotine 21 mg/24 hr daily 21 mg topical DAILY@2100 #21 ea 03/07/22 transdermal patch sennosides 8.6 mg-docusate sodium 1 tab-cap PO QHS #60 tabs 03/12/22 50 mg tablet (Senna with Docusate Sodium) cromolyn 4 % eye drops 2 drp ophthalmic (eye) QID PRN eye 03/21/22 irritation #10 mL prednisone 5 mg tablet 5 mg PO DIRECTED copd #32 tabs 03/21/22 furosemide 40 mg tablet 40 mg PO QAM #30 tabs 04/03/22 prednisone 20 mg tablet 40 mg PO QDAY #8 tabs 04/06/22 Allergies Allergy/AdvReac Type Severity Reaction Status Date / Time Calcitonin Allergy Severe Other Verified 04/07/22 11:28 diphenhydramine Allergy Severe Other Verified 04/07/22 11:28 [id number] Allergy Severe Swelling Verified 04/07/22 11:28 [From Trelegy Ellipta] of Lip/Tongue/Throat umeclidinium Allergy Severe Swelling Verified 04/07/22 11:28 [From Trelegy Ellipta] of Lip/Tongue/Throat vilanterol Allergy Severe Swelling Verified 04/07/22 11:28 [From Trelegy Ellipta] of Lip/Tongue/Throat diazepam [From Valium] Allergy Intermediate Difficulty Verified 04/07/22 11:28 Breathing dextromethorphan AdvReac Mild Hallucinati Verified 04/07/22 11:28 ng Review of Systems ROS ROS Narrative: A comprehensive review of systems is obtained and found to be negative, except as per HPI. PFSH Narrative Patient History Narrative: Narrative: Medical/Surgical/Family History All Active Problems Acute and chronic respiratory failure with hypercapnia (Acute) Chest pain (Acute) COPD with acute exacerbation (Acute) Influenza (Acute) Influenza A (Acute) COPD exacerbation (Acute) Constipation (Acute) Diabetes (Acute) Cigarette smoker (Acute) Bronchitis (Acute) Acute and chronic respiratory failure with hypercapnia (Acute) Acute exacerbation of chronic obstructive pulmonary disease (Acute) Pleurodynia (Acute) Hypoxia (Chronic) Acute exacerbation of chronic obstructive pulmonary disease (Acute) Acute exacerbation of chronic obstructive pulmonary disease (Acute) Encounter for screening colonoscopy (Acute) 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) Obstructive sleep apnea (Chronic) Pulmonary fibrosis (Chronic) Osteoporosis (Acute) Idiopathic osteoporosis with pathological fracture (Acute) Hand lesion (Acute) Age-related osteoporosis with current pathological fracture, vertebra(e), initial encounter for fracture (Acute) Depression (Chronic) Anxiety (Chronic) Seizures (Chronic) Pneumonia due to COVID-19 virus (Chronic) Pneumonia (Chronic) Fracture of tooth (Chronic) Dental caries (Chronic) Dental abscess (Chronic) Back pain, thoracic (Chronic) Back pain of thoracolumbar region (Chronic) Back pain (Chronic) Compression fracture (Chronic) History of severe acute respiratory syndrome coronavirus 2 (SARS-CoV-2) disease (Chronic) GERD (gastroesophageal reflux disease) (Chronic) Lung nodules (Chronic) Witnessed apneic spells (Chronic) Snoring (Chronic) Hypersomnia (Chronic) Pulmonary hypertension (Chronic) Hypertension (Chronic) Exertional shortness of breath (Chronic) Asthma (Chronic) Costochondritis (Chronic) Portal hypertension (Chronic) Heart failure (Chronic) PTSD (post-traumatic stress disorder) (Chronic) Nightmares (Chronic) Grief (Chronic) Tobacco use (Chronic) Medical History Age-related osteoporosis with current pathological fracture, vertebra(e), initial encounter for fracture Anxiety Asthma Back pain Back pain of thoracolumbar region Back pain, thoracic Compression fracture thoracic spine Constipation Costochondritis Dental abscess Dental caries Depression Diabetes Exertional shortness of breath Fracture of tooth GERD (gastroesophageal reflux disease) Grief Heart failure History of severe acute respiratory syndrome coronavirus 2 (SARS-CoV-2) disease November 2020 Hypersomnia Hypertension Hypoxia Lung nodules 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 Family History Sister Multiple sclerosis Father Hypertension Arthritis Chronic pain Grandmother Multiple sclerosis Brittle bones Social History Smoking Status: Current every day smoker Alcohol Intake Frequency: does not drink Substance Use: does not use Exam Narrative Narrative: General: Alert, tearful conversant, moderate distress HEENT: NC/AT, EOMI, PERRL, no LAD, anicteric sclerae Chest/respiratory: Symmetric chest wall expansion, expiratory wheezing, adequate tidal volume and respiratory effort, speaks in complete paragraphs with 1 to 2 breaths between sentences, +AMU CV: RRR/no MRG at low volume, cap refill less than 2 seconds; palpable peripheral pulses Abdomen/GI: NABs, soft, NT/ND, positive fluid wave Extremities/MSK: MAEW, normal gait, 3+ pitting edema Skin: Normal warm and dry, no jaundice Course Vital Signs Vital signs: Vital Signs Temperature 96.9 F L 04/07/22 11:25 Pulse Rate 113 H 04/07/22 11:25 Respiratory Rate 28 H 04/07/22 11:25 Blood Pressure 129/74 04/07/22 11:25 Pulse Oximetry (%) 96 04/07/22 11:25 Oxygen Delivery Method 04/07/22 11:25 Oxygen Flow Rate (L/min) 3 04/07/22 11:25 Temperature 97.1 F 04/07/22 17:19 Pulse Rate 104 H 04/07/22 18:06 Respiratory Rate 17 04/07/22 18:06 Blood Pressure 120/86 04/07/22 18:06 Pulse Oximetry (%) 94 04/07/22 18:06 Oxygen Delivery Method 04/07/22 17:19 Oxygen Flow Rate (L/min) 4 04/07/22 17:03 [facility] Narrative Medical decision making narrative: Min Hoang is a 56-year-old male who presents to the emergency department complaining of increasing shortness of breath, on his second visit to the emergency department in 2 days. He was positive for influenza yesterday. He reports his breathing has been going worse since his visit yesterday. He additionally reports a global chest pain radiating into his neck. Treatment is initiated with a breathing treatment after confirming that the patient is not allergic to albuterol, and the patient reports feeling significantly better. He is additionally provided with a 500 mL IV fluid bolus with normal saline given his heart rate and prolonged difficulty breathing. As the patient states he did not take his Lasix this morning and he has crackles in his lungs and 3+ pitting edema, he is treated with his normal daily dose of La six, administered IV. Upon initial reevaluation, the patient is far more comfortable, asleep but ea sily arousable to answer questions coherently. Patient reports he is feeling significantly better. VBG shows a lactate of 1.0, pH 7.28, PCO2 81.8, PO2 52, HCO3 38.3, T CO2 41.0 venous oxygen saturation 79%, and base excess 12. CBC shows a white count of 8.8, H&H of 16.3 and 50.7, respectively, and platelets at 252, within reference range. Chem-8 shows a sodium of 138, potassium 3.9, chloride which is low, at 95, elevated CO2 to at 35, BUN 15, creatinine 0.8, and glucose 163. Procalcitonin is 0.08, not consistent with pneumonia. proBNP is 1121.0, and the patient's last value on file is 98.5. He has had prior proBNP elevations in the past, however not for couple of years. Initial troponin at 1156 is negative at less than 0.02, and this was repeated at 1415, with value unchanged. Given the improvement in the patient's respiratory symptoms with initial treatment, despite initial VBG results, patient is not immediately started on BiPAP. Initial EKG shows sinus tachycardia at 103 with some right axis deviation, without ST elevation or depression. Heart rate improves during treatment while the patient is more comfortable and able to rest to under 100. Repeat EKG at 1414 shows sinus tachycardia at 110, with unchanged morphology. With repeat VBG and worsening values, respiratory therapy is paged to request the patient be placed on BiPAP. At 1350, with return of all test results, Dr Jamil of the hospitalist service is paged to request admission for this patient with acute on chronic hypercarbic respiratory failure, exacerbation of COPD with influenza, and heart failure exacerbation. The patient is transferred to the floor for further evaluation and management. Sepsis Sepsis Identified: No Lab Data Result diagrams: 04/07/22 11:53 04/07/22 18:00 Labs: Lab Results 04/07/22 04/07/22 04/07/22 Range/Units 11:53 11:53 11:53 WBC 8.8 (4.5-11.0) K/mcL RBC 5.24 (4.63-6.08) M/mcL Hgb 16.3 (13.7-17.5) g/dL Hct 50.7 (40.1-51.0) % POC Hct (41-55) MCV 96.8 (80.0-100.0) fL MCH 31.1 (26.0-34.0) pg MCHC 32.1 (31.0-36.0) g/dL RDW 12.9 (11.5-14.5) % Plt Count 252 (140-440) K/mcL MPV 10.4 (8.8-12.5) fL Immature Gran % (Auto) 0.2 (0.0-0.5) % Neut % (Auto) 74.2 (38.0-78.0) % Lymph % (Auto) 11.3 L (15.5-49.0) % Wheeler % (Auto) 9.7 (1.0-12.0) % Eos % (Auto) 4.0 (0.0-7.0) % Baso % (Auto) 0.6 (0.0-2.0) % Lymph # (Auto) 0.99 L (1.50-4.80) K/mcL Wheeler # (Auto) 0.85 (0.10-0.90) K/mcL Eos # (Auto) 0.35 (0.00-0.70) K/mcL Baso # (Auto) 0.05 (0.00-0.30) K/mcL Immature Gran # 0.02 (0.00-0.05) K/mcl Absolute Neutrophils 6.51 (1.80-8.00) K/mcL POC VBG pH (7.32-7.42) POC VBG pCO2 at Temp (41-51) POC VBG pO2 (25-40) POC VBG HCO3 (24-28) POC VBG Total CO2 (25-29) POC Venous O2 Sat (40-70) POC VBG Base Excess (-2-2) VBG Lactic Acid (0.5-2) POC Sodium (133-145) Sodium 138 (133-145) mmol/L POC Potassium (3.3-5.1) Potassium 3.9 (3.3-5.1) mmol/L POC Chloride (96-108) Chloride 96 (96-108) mmol/L Carbon Dioxide 31 H (22-30) mmol/L POC Total CO2 (22-30) Anion Gap 11.0 (8.0-16.0) POC BUN (6-20) BUN 13 (6-20) mg/dL Creatinine 0.8 (0.7-1.2) mg/dL POC Creatinine (0.6-1.2) GFR Calculation 100 Glucose 161 H (70-105) mg/dL POC Glucose (70-105) Calcium 8.5 L (8.6-10.4) mg/dL POC WB Ioniz Calcium (1.16-1.32) Total Bilirubin 0.2 (0.1-1.0) mg/dL AST 16 (<40) U/L ALT 25 (<40) U/L Alkaline Phosphatase 100 (39-117) U/L NT-Pro-B Natriuret Pep 1121.0 H (<125.0) pg/mL Total Protein 6.6 (5.9-8.4) gm/dL Albumin 3.9 (3.2-5.2) gm/dL Globulin 2.7 (2.2-3.7) gm/dL Albumin/Globulin Ratio 1.4 (1.0-2.3) Procalcitonin 0.08 (<0.10) ng/mL POC Troponin I (0.00-0.08) 04/07/22 04/07/22 04/07/22 Range/Units 11:56 11:57 12:04 WBC (4.5-11.0) K/mcL RBC (4.63-6.08) M/mcL Hgb (13.7-17.5) g/dL Hct (40.1-51.0) % POC Hct 52.0 (41-55) MCV (80.0-100.0) fL MCH (26.0-34.0) pg MCHC (31.0-36.0) g/dL RDW (11.5-14.5) % Plt Count (140-440) K/mcL MPV (8.8-12.5) fL Immature Gran % (Auto) (0.0-0.5) % Neut % (Auto) (38.0-78.0) % Lymph % (Auto) (15.5-49.0) % Wheeler % (Auto) (1.0-12.0) % Eos % (Auto) (0.0-7.0) % Baso % (Auto) (0.0-2.0) % Lymph # (Auto) (1.50-4.80) K/mcL Wheeler # (Auto) (0.10-0.90) K/mcL Eos # (Auto) (0.00-0.70) K/mcL Baso # (Auto) (0.00-0.30) K/mcL Immature Gran # (0.00-0.05) K/mcl Absolute Neutrophils (1.80-8.00) K/mcL POC VBG pH 7.28 L (7.32-7.42) POC VBG pCO2 at Temp 81.8 H* (41-51) POC VBG pO2 52 H (25-40) POC VBG HCO3 38.3 H (24-28) POC VBG Total CO2 41.0 H (25-29) POC Venous O2 Sat 79.0 H (40-70) POC VBG Base Excess 12.0 H* (-2-2) VBG Lactic Acid 1.0 (0.5-2) POC Sodium 138 (133-145) Sodium (133-145) mmol/L POC Potassium 3.9 (3.3-5.1) Potassium (3.3-5.1) mmol/L POC Chloride 95 L (96-108) Chloride (96-108) mmol/L Carbon Dioxide (22-30) mmol/L POC Total CO2 35.0 H (22-30) Anion Gap (8.0-16.0) POC BUN 15 (6-20) BUN (6-20) mg/dL Creatinine (0.7-1.2) mg/dL POC Creatinine 0.8 (0.6-1.2) GFR Calculation Glucose (70-105) mg/dL POC Glucose 163 H (70-105) Calcium (8.6-10.4) mg/dL POC WB Ioniz Calcium 0.94 L (1.16-1.32) Total Bilirubin (0.1-1.0) mg/dL AST (<40) U/L ALT (<40) U/L Alkaline Phosphatase (39-117) U/L NT-Pro-B Natriuret Pep (<125.0) pg/mL Total Protein (5.9-8.4) gm/dL Albumin (3.2-5.2) gm/dL Globulin (2.2-3.7) gm/dL Albumin/Globulin Ratio (1.0-2.3) Procalcitonin (<0.10) ng/mL POC Troponin I < 0.02 (0.00-0.08) 04/07/22 04/07/22 04/07/22 Range/Units 14:15 14:17 16:08 WBC (4.5-11.0) K/mcL RBC (4.63-6.08) M/mcL Hgb (13.7-17.5) g/dL Hct (40.1-51.0) % POC Hct (41-55) MCV (80.0-100.0) fL MCH (26.0-34.0) pg MCHC (31.0-36.0) g/dL RDW (11.5-14.5) % Plt Count (140-440) K/mcL MPV (8.8-12.5) fL Immature Gran % (Auto) (0.0-0.5) % Neut % (Auto) (38.0-78.0) % Lymph % (Auto) (15.5-49.0) % Wheeler % (Auto) (1.0-12.0) % Eos % (Auto) (0.0-7.0) % Baso % (Auto) (0.0-2.0) % Lymph # (Auto) (1.50-4.80) K/mcL Wheeler # (Auto) (0.10-0.90) K/mcL Eos # (Auto) (0.00-0.70) K/mcL Baso # (Auto) (0.00-0.30) K/mcL Immature Gran # (0.00-0.05) K/mcl Absolute Neutrophils (1.80-8.00) K/mcL POC VBG pH 7.24 L 7.27 L (7.32-7.42) POC VBG pCO2 at Temp 92.1 H* 89.7 H* (41-51) POC VBG pO2 61 H 82 H (25-40) POC VBG HCO3 39.3 H 41.6 H* (24-28) POC VBG Total CO2 42.0 H* 44.0 H* (25-29) POC Venous O2 Sat 84.0 H 93.0 H (40-70) POC VBG Base Excess 12.0 H* 15.0 H* (-2-2) VBG Lactic Acid 0.5 0.7 (0.5-2) POC Sodium (133-145) Sodium (133-145) mmol/L POC Potassium (3.3-5.1) Potassium (3.3-5.1) mmol/L POC Chloride (96-108) Chloride (96-108) mmol/L Carbon Dioxide (22-30) mmol/L POC Total CO2 (22-30) Anion Gap (8.0-16.0) POC BUN (6-20) BUN (6-20) mg/dL Creatinine (0.7-1.2) mg/dL POC Creatinine (0.6-1.2) GFR Calculation Glucose (70-105) mg/dL POC Glucose (70-105) Calcium (8.6-10.4) mg/dL POC WB Ioniz Calcium (1.16-1.32) Total Bilirubin (0.1-1.0) mg/dL AST (<40) U/L ALT (<40) U/L Alkaline Phosphatase (39-117) U/L NT-Pro-B Natriuret Pep (<125.0) pg/mL Total Protein (5.9-8.4) gm/dL Albumin (3.2-5.2) gm/dL Globulin (2.2-3.7) gm/dL Albumin/Globulin Ratio (1.0-2.3) Procalcitonin (<0.10) ng/mL POC Troponin I < 0.02 (0.00-0.08) Discharge Plan Patient/Caregiver Discharge Instructions Pt seen by [employer]/PA only: Yes Clinical Impression: Acute and chronic respiratory failure with hypercapnia, Chest pain, COPD with acute exacerbation, Influenza Patient Disposition: Xfer As Inpt ([facility]) Discharge Date/Time: 04/07/22 17:09
[2022-04-07] MEDS ORDERED: FUROSEMIDE 40 MG/4 ML VIAL IV ONE (12:05)
[2022-04-07] MEDS ORDERED: methylPREDNISolone SOD SUCC 125 MG/2 ML VIAL IV ONE (12:07)
[2022-04-07 12:09] LABS: POC Calcium, Ionized 0.94 (1.16-1.32); POC Creatinine 0.8 (0.6-1.2); POC Potassium 3.9 (3.3-5.1)
[2022-04-07 12:26] LABS: Basophils # (Auto) 0.05 K/mcL (0.00-0.30); Basophils % (Auto) 0.6 % (0.0-2.0); Eosinophils # (Auto) 0.35 K/mcL (0.00-0.70); Hematocrit 50.7 % (40.1-51.0); Hemoglobin 16.3 g/dL (13.7-17.5); Lymphocytes # (Auto) 0.99 K/mcL (1.50-4.80); Lymphocytes % (Auto) 11.3 % (15.5-49.0); Mean Cell Volume 96.8 fL (80.0-100.0); Mean Corpuscular HGB Conc 32.1 g/dL (31.0-36.0); Mean Platelet Volume 10.4 fL (8.8-12.5); Monocytes # (Auto) 0.85 K/mcL (0.10-0.90); Monocytes % (Auto) 9.7 % (1.0-12.0); Neutrophils % (Auto) 74.2 % (38.0-78.0); Platelet Count 252 K/mcL (140-440); RBC 5.24 M/mcL (4.63-6.08); Red Cell Distribution Width 12.9 % (11.5-14.5); WBC 8.8 K/mcL (4.5-11.0)
[2022-04-07 12:52] LABS: ALT/SGPT 25 U/L (<40); AST/SGOT 16 U/L (<40); Albumin 3.9 gm/dL (3.2-5.2); Albumin/Globulin Ratio 1.4 (1.0-2.3); Alkaline Phosphatase 100 U/L (39-117); Bilirubin,Total 0.2 mg/dL (0.1-1.0); Blood Urea Nitrogen 13 mg/dL (6-20); Calcium 8.5 mg/dL (8.6-10.4); Carbon Dioxide 31 mmol/L (22-30); Chloride 96 mmol/L (96-108); Globulin 2.7 gm/dL (2.2-3.7); Glomerular Filtration Rate 100; Glucose 161 mg/dL (70-105)
[2022-04-07] MEDS ORDERED: FUROSEMIDE 20 MG/2 ML VIAL IV ONE (13:38)
--- NOTE | 2022-04-07 14:02 | XRay Report ---
CLINICAL INFORMATION: Dyspnea COMPARISON: 04/06/2022 TECHNIQUE: Portable FINDINGS: The heart size and mediastinum are unremarkable. Mild central pulmonary artery enlargement suggests pulmonary hypertension. Moderate COPD noted with large bullae in the upper lobe. Mild fibrosis left lung base demonstrates long-term stability. There may be a moderate amount, yet vague infiltrate developing in the left mid and lower lung.Scattered tiny calcified granulomas seen as before. There are no effusions. The bones and soft tissues are within normal limits. IMPRESSION: Moderate COPD with probable pulmonary hypertension. Possible vague infiltrate developing in the left mid and lower lung. Interpreted and Authenticated by: Ty Roland 04/07/22
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
[2022-04-07] MEDS ORDERED: IPRATROPIUM/ALBUTEROL 3 ML AMPUL.NEB NEB ONE (15:40)
[2022-04-07] MEDS ORDERED: LACTULOSE 20 GM/30 ML ORAL.SOL PO PRN (17:07)
[2022-04-07] MEDS ORDERED: ONDANSETRON 4 MG/2 ML VIAL IV PRN (17:07)
[2022-04-07] MEDS ORDERED: SENNOSIDES 1 TABLET PO PRN (17:07)
[2022-04-07] MEDS ORDERED: ACETAMINOPHEN 325 MG TABLET PO PRN (17:07)
[2022-04-07] MEDS ORDERED: ONDANSETRON 4 MG ODT TABLET SL PRN (17:07)
[2022-04-07] MEDS: methylPREDNISolone SOD SUCC 125 MG/2 ML VIAL IV SCH (17:13)
[2022-04-07 18:59] LABS: Blood Urea Nitrogen 10 mg/dL (6-20); Calcium 8.3 mg/dL (8.6-10.4); Carbon Dioxide 33 mmol/L (22-30); Chloride 92 mmol/L (96-108); Glomerular Filtration Rate 106; Glucose 178 mg/dL (70-105)
--- NOTE | 2022-04-07 19:14 | Cat Scan Report ---
CLINICAL INFORMATION: Shortness of breath COMPARISON: Chest CT 07/23/2018 and 01/21/2022. TECHNIQUE: 80ml of Isovue-370 were injected intravenously. Using SmartPrep to maximize pulmonary artery opacification, .625mm helical slices were obtained from the lung apices through the lung bases. Following reconstruction, 2.5 mm sagittal, coronal, and axial reformations were processed. The exam was reviewed at mediastinal, lung, and bone windows. The exam was performed using radiation dose optimization techniques including, but not limited to, automated exposure control, adjustment of the mA and/or kV according to patient size and use of iterative reconstruction technique. FINDINGS: Pulmonary parenchymal windows moderate centrilobular emphysema featuring, predominantly, chronic bronchitis with elevated lung volumes and wall thickening/dilatation of bronchi. Scattered bullae are seen in the upper lobe. The right upper and right lower lobes are hyperexpanded and there is partial atelectasis of the central right middle lobe which may be indicative of developing right middle lobe syndrome. Thick bands of fibrosis extending from the right hilum through the posterior right upper lobe into the apical region demonstrate long-term stability. Moderate patchy groundglass infiltrate has developed in the posterior segment of the left upper lobe since the prior exam. Small calcified granulomas are widely disseminated throughout both lungs which demonstrate long-term stability. No soft tissue nodules. Pleural spaces are normal. Mediastinal windows show the heart is grossly normal in size and configuration. The pulmonary arteries are normal diameter and well-opacified without evidence of embolus. Thoracic aorta is also normal diameter and well-opacified. There is no adenopathy in the mediastinal, hilar or axillary regions. Esophagus is grossly normal. The thyroid is unremarkable. Bone windows show vertebroplasty a resting a moderate T5 compression fracture. Mild chronic T6-T7 moderate chronic T8 compression fracture are unchanged. IMPRESSION: 1. No evidence of pulmonary embolus. 2. New moderate groundglass infiltrate in the posterior segment left upper lobe 3. Moderate centrilobular emphysema featuring, predominantly, chronic bronchitis with scattered bullae in the upper lobes. Hyperexpansion of the right upper and lower lobes with developing atelectasis in the central right middle lobe. This may indicate developing right middle lobe syndrome. Interpreted and Authenticated by: Ty Roland 04/07/22
[2022-04-07] MEDS ORDERED: morphine 2 MG/ML VIAL IV PRN (20:18)
[2022-04-07] MEDS: IPRATROPIUM/ALBUTEROL 3 ML AMPUL.NEB NEB SCH (20:45)
[2022-04-07] MEDS: BUDESONIDE 0.5 MG/2 ML AMPUL.NEB NEB SCH (20:46)
[2022-04-07] MEDS: 0.9 % SODIUM CHLORIDE 10 ML SYRINGE IV SCH (21:23)
[2022-04-07] MEDS: OSELTAMIVIR PHOSPHATE 75 MG CAPSULE PO SCH (21:23)
[2022-04-07] MEDS: DOCUSATE SODIUM 100 MG CAPSULE PO SCH (21:24)
[2022-04-08] MEDS: methylPREDNISolone SOD SUCC 125 MG/2 ML VIAL IV SCH ×5 (04:27→23:32)
[2022-04-08] MEDS: IPRATROPIUM/ALBUTEROL 3 ML AMPUL.NEB NEB SCH ×4 (04:27→19:01)
[2022-04-08] MEDS: 0.9 % SODIUM CHLORIDE 10 ML SYRINGE IV SCH ×3 (04:28→20:32)
[2022-04-08 04:54] LABS: Amphetamine Screen,Urine Suspect positive; Barbiturate Screen,Urine None detected; Benzodiazepines Screen,Urine None detected; Cannabinoid Screen,Urine Suspect Positive; Cocaine Screen,Urine None detected; Opiate Screen,Urine Suspect Positive; Oxycodone, Urine Screen None detected; Phencyclidine Screen,Urine None detected
[2022-04-08 06:28] LABS: Basophils # (Auto) 0.02 K/mcL (0.00-0.30); Basophils % (Auto) 0.2 % (0.0-2.0); Eosinophils # (Auto) 0 K/mcL (0.00-0.70); Eosinophils % (Auto) 0 % (0.0-7.0); Hematocrit 54.5 % (40.1-51.0); Hemoglobin 17.4 g/dL (13.7-17.5); Lymphocytes # (Auto) 0.54 K/mcL (1.50-4.80); Lymphocytes % (Auto) 4.7 % (15.5-49.0); Mean Corpuscular HGB Conc 31.9 g/dL (31.0-36.0); Mean Platelet Volume 10.4 fL (8.8-12.5); Monocytes # (Auto) 0.66 K/mcL (0.10-0.90); Monocytes % (Auto) 5.8 % (1.0-12.0); Platelet Count 279 K/mcL (140-440); RBC 5.62 M/mcL (4.63-6.08); Red Cell Distribution Width 12.7 % (11.5-14.5); WBC 11.5 K/mcL (4.5-11.0)
[2022-04-08] MEDS ORDERED: DEXTROSE 31 GM ORAL.SUSP PO PRN (07:01)
[2022-04-08] MEDS ORDERED: DEXTROSE 50% 50 ML VIAL IV PRN (07:01)
[2022-04-08] MEDS: INSULIN LISPRO 1 UNIT/0.01 ML UNIT SQ SCH ×4 (07:50→20:32)
--- NOTE | 2022-04-08 07:54 | EKG ---
[facility] Test Date: 2022-04-07 Pat Name: Min Hoang Department: ED Room: Gender: Male Regional Education Coordinator: MADDY : 1965 Requested By: Lidia Sharma Order Number: [id number] Reading MD: Ty Cui M.D. Measurements Intervals [place] Rate: 103 P: 83 VT: 154 QRS: 97 QRSD: 95 T: 65 QT: 356 QTc: 466 Interpretive Statements Sinus tachycardia Borderline right axis deviation Electronically Signed On 04-08-2022 7:54:09 PST by Ty Cui M.D. /[email or web address]/[id number]
--- NOTE | 2022-04-08 07:55 | EKG ---
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 Measurements Intervals [place] Rate: 110 P: 79 NV: 152 QRS: 96 QRSD: 92 T: 54 QT: 347 QTc: 470 Interpretive Statements Sinus tachycardia Borderline right axis deviation Electronically Signed On 04-08-2022 7:55:19 PST by Ty Cui M.D. /[email or web address]/[id number]
[2022-04-08] MEDS: BUDESONIDE 0.5 MG/2 ML AMPUL.NEB NEB SCH ×2 (08:06→19:00)
[2022-04-08] MEDS: DOCUSATE SODIUM 100 MG CAPSULE PO SCH ×2 (08:48→20:32)
[2022-04-08] MEDS: OSELTAMIVIR PHOSPHATE 75 MG CAPSULE PO SCH (08:49)
[2022-04-08] MEDS ORDERED: LEVOFLOXACIN 750 MG TABLET PO SCH (09:00)
[2022-04-08] MEDS ORDERED: ENOXAPARIN 40 MG/0.4 ML SYRINGE SQ SCH (09:00)
--- NOTE | 2022-04-08 09:21 | Internal Med Progress Note ---
SUBJECTIVE Subjective Patient information: Note initiated : 04/08/22 at 9:19 am Service Date, if different from initiated Date: [] Patient: Min Hoang 56 y/o M admitted on 04/07/22 for Shortness of breath. Chief Complaint: [SOB] Principal diagnosis: Acute on chronic hypoxemic respiratory failure Interval history: The patient states that his breathing has improved. He states that he was quite hungry as he was made n.p.o. while he was requiring BiPAP. RN was present at the bedside to discuss plan of care. Constitutional Vitals: Vital Signs Temp Pulse Resp BP Pulse Ox O2 Del Method O2 Flow Rate 96.9 F L 105 H 16 146/88 94 4 04/08/22 08:00 04/08/22 08:05 04/08/22 08:05 04/08/22 08:02 04/08/22 08:05 04/08/22 08:05 04/08/22 08:05 Period Temp Pulse Resp BP Sys/Garcia Pulse Ox O2 Del Method O2 Flow Rate Last 24 Hr 96.9 F-98.2 F 87-125 12-34 116-176/74-132 90-100 Aerosol Mask- Room Air 3-6 Intake and Output 04/07/22 04/08/22 04/08/22 19:59 03:59 11:59 Intake Total 199 186 4198 Output Total 2150 0 275 Balance -1650 120 965 Weight 84.187 kg 85.366 kg Intake & Output: Intake & Output 04/07/22 04/08/22 04/08/22 19:59 03:59 11:59 Intake Total 128 806 9650 Output Total 2150 0 275 Balance -1650 120 965 Weight 84.187 kg 85.366 kg Intake: IV 500 Sodium Chloride 0.9% 500 ml @ 500 Wide Open IV .Q0M ONE Rx#: [id number] Oral 120 1240 Output: Void Amount 2150 0 275 Other: Meal Breakfast Percent of Meal Consumed 100% Feeding Ability Assist with Tray Set Up Urine Appearance Clear Clear Urine Color Bright Yellow Dark Yellow Urine Odor Normal Strong Head Head exam: Present atraumatic and normal inspection Eye Eye exam: Present normal appearance ENT ENT exam: Present mucous membranes moist, normal exam and normal external ear exam Neck Neck exam: Present normal inspection Respiratory Respiratory exam: Present prolonged expiratory phase, rhonchi and wheezes Cardiovascular Cardiovascular exam: Present normal rate and rhythm GI/Abdominal GI/Abdominal exam: Present normal bowel sounds Back Exam Back exam: Present normal inspection Neurological Exam Neurological exam: Present alert and oriented X3 Skin Skin exam: Present intact and warm OBJ DATA Labs CBC & Chem 7: 04/08/22 05:20 04/07/22 18:00 Labs: Abnormal Lab Results 04/08/22 04/07/22 04/07/22 05:20 18:05 18:00 WBC 11.5 H Hct 54.5 H Neut % (Auto) 89.0 H Lymph % (Auto) 4.7 L Lymph # (Auto) 0.54 L Absolute Neutrophils 10.21 H POC VBG pH POC VBG pCO2 at Temp 65.3 H* POC VBG pO2 73 H POC VBG HCO3 35.6 H POC VBG Total CO2 38.0 H POC Venous O2 Sat 93.0 H POC VBG Base Excess 10.0 H* Sodium 132 L POC Chloride Chloride 92 L Carbon Dioxide 33 H POC Total CO2 Anion Gap 7.0 L Glucose 178 H POC Glucose Calcium 8.3 L POC WB Ioniz Calcium NT-Pro-B Natriuret Pep Urine Opiates Screen Ur Amphetamines Screen U Marijuana (THC) Screen 04/07/22 04/07/22 04/07/22 16:08 14:17 12:04 WBC Hct Neut % (Auto) Lymph % (Auto) Lymph # (Auto) Absolute Neutrophils POC VBG pH 7.27 L 7.24 L POC VBG pCO2 at Temp 89.7 H* 92.1 H* POC VBG pO2 82 H 61 H POC VBG HCO3 41.6 H* 39.3 H POC VBG Total CO2 44.0 H* 42.0 H* POC Venous O2 Sat 93.0 H 84.0 H POC VBG Base Excess 15.0 H* 12.0 H* Sodium POC Chloride 95 L Chloride Carbon Dioxide POC Total CO2 35.0 H Anion Gap Glucose POC Glucose 163 H Calcium POC WB Ioniz Calcium 0.94 L NT-Pro-B Natriuret Pep Urine Opiates Screen Ur Amphetamines Screen U Marijuana (THC) Screen 04/07/22 04/07/22 04/07/22 11:57 11:53 11:53 WBC Hct Neut % (Auto) Lymph % (Auto) 11.3 L Lymph # (Auto) 0.99 L Absolute Neutrophils POC VBG pH 7.28 L POC VBG pCO2 at Temp 81.8 H* POC VBG pO2 52 H POC VBG HCO3 38.3 H POC VBG Total CO2 41.0 H POC Venous O2 Sat 79.0 H POC VBG Base Excess 12.0 H* Sodium POC Chloride Chloride Carbon Dioxide 31 H POC Total CO2 Anion Gap Glucose 161 H POC Glucose Calcium 8.5 L POC WB Ioniz Calcium NT-Pro-B Natriuret Pep 1121.0 H Urine Opiates Screen Ur Amphetamines Screen U Marijuana (THC) Screen 04/07/22 04:05 WBC Hct Neut % (Auto) Lymph % (Auto) Lymph # (Auto) Absolute Neutrophils POC VBG pH POC VBG pCO2 at Temp POC VBG pO2 POC VBG HCO3 POC VBG Total CO2 POC Venous O2 Sat POC VBG Base Excess Sodium POC Chloride Chloride Carbon Dioxide POC Total CO2 Anion Gap Glucose POC Glucose Calcium POC WB Ioniz Calcium NT-Pro-B Natriuret Pep Urine Opiates Screen Suspect positive A Ur Amphetamines Screen Suspect positive A U Marijuana (THC) Screen Suspect positive A Meds: Medications Acetaminophen (Acetaminophen 325 Mg Tablet) 650 mg PO Q6HP PRN; Protocol PRN Reason: Per Pain Protocol/Fever > 101 Albuterol/Ipratropium (Ipratropium/Albuterol 3 Ml Ampul.Neb) 3 ml NEB Q6HRT [facility] Last Admin: 04/08/22 08:06 Dose: 3 ml Budesonide (Budesonide 0.5 Mg/2 Ml Ampul.Neb) 0.5 mg NEB Q12 [facility] Last Admin: 04/08/22 08:06 Dose: 0.5 mg Dextrose (Dextrose 50% 50 Ml Vial) 0 ml IV UD PRN PRN Reason: Per Sliding Scale Diagnostic Test (Pha) (Accu-Chek 1 Each Strip) 1 each FS ACHS [facility] Last Admin: 04/08/22 07:50 Dose: 1 each Docusate Sodium (Docusate Sodium 100 Mg Capsule) 100 mg PO BID [facility] Last Admin: 04/08/22 08:48 Dose: Not Given Enoxaparin Sodium (Enoxaparin 40 Mg/0.4 Ml Syringe) 40 mg SQ DAILY [facility] Last Admin: 04/08/22 08:49 Dose: 40 mg Glucose (Dextrose 31 Gm Oral.Susp) 15 gm PO PRN PRN PRN Reason: Hypoglycemia Insulin Human Lispro (Insulin Lispro 1 Unit/0.01 Ml Unit) 0 unit SQ ACHS [facility]; Protocol Last Admin: 04/08/22 07:50 Dose: 2 unit Lactulose (Lactulose 20 Gm/30 Ml Oral.Radha) 10 gm PO DAILYP PRN PRN Reason: Constipation Levofloxacin (Levofloxacin 750 Mg Tablet) 750 mg PO DAILY [facility]; Protocol Last Admin: 04/08/22 08:49 Dose: 750 mg Methylprednisolone Sodium Succinate (Methylprednisolone Sod Succ 125 Mg/2 Ml Vial) 62.5 mg IV Q6 [facility] Last Admin: 04/08/22 08:48 Dose: 62.5 mg Morphine Sulfate (Morphine 2 Mg/Ml Vial) 1 mg IV Q4HP PRN; Protocol PRN Reason: Per Pain Protocol Last Admin: 04/07/22 21:24 Dose: 1 mg Ondansetron HCl (Ondansetron 4 Mg/2 Ml Vial) 4 mg IV Q4HP PRN; Protocol PRN Reason: Nausea And Vomiting Ondansetron HCl (Ondansetron 4 Mg Odt Tablet) 4 mg SL Q4HP PRN; Protocol PRN Reason: Nausea And Vomiting Oseltamivir Phosphate (Oseltamivir Phosphate 75 Mg Capsule) 75 mg PO BID [facility] Stop: 04/12/22 09:01 Last Admin: 04/08/22 08:49 Dose: 75 mg Senna (Sennosides 1 Tablet) 2 tab PO HSP PRN PRN Reason: Constipation Sodium Chloride (0.9 % Sodium Chloride 10 Ml Syringe) 10 ml IV Q8 [facility] Last Admin: 04/08/22 04:28 Dose: 10 ml A/P Assessment and plan (1) Influenza A: Status: Acute (2) COPD exacerbation: Status: Acute (3) Diabetes: Status: Acute (4) Cigarette smoker: Status: Acute (5) Acute and chronic respiratory failure with hypercapnia: Status: Acute (6) Pneumonia: Status: Chronic (7) Heart failure: Status: Chronic Qualifiers: Heart failure type: unspecified Heart failure chronicity: unspecified Qualified Code(s): I50.9 - Heart failure, unspecified Narrative A/P Narrative: At this point, the patient likely has COPD exacerbation due to influenza A. There may be a component of underlying bacterial pneumonia as well. Unfortunately, the patient continues to smoke cigarettes. We will obtain TTE, CTA chest. He will be started on duo nebs, Pulmicort, Levaquin, Tamiflu, and Solu-Medrol 60 mg IV every 6 hours. We will monitor serial VBG, and maintain an O2 sat of greater than 90%. The patient's medication reconciliation is pending. 04/08: CTA chest was negative for PE but did reveal left upper lobe pneumonia. We will continue treatment as above. His VBG looked much improved with BiPAP overnight. pH 7.34, PCO2 65, PO2 73. Continue management as above. Of note his urine drug screen was positive for methamphetamines. Time Spent With Patient Time: Total time spent is greater than 50% in coordination of care (as documented) at patient's floor/unit and/or counseling patient: Total time spent with greater than 50% in coordination of care (as documented) at patient's floor/unit and/or counseling patient:: 25 - 35 minutes QUALITY VTE Deep Vein Thrombosis/Pulmonary Embolism Present on Admission: No
[2022-04-08] MEDS ORDERED: LORazepam 2 MG/ML VIAL IV PRN (12:08)
[2022-04-08] MEDS ORDERED: NICOTINE 21 MG PATCH TOPICAL SCH (17:45)
[2022-04-08] MEDS ORDERED: METOPROLOL TARTRATE 25 MG TABLET ONE (20:31)
[2022-04-08] MEDS ORDERED: METOPROLOL TARTRATE 25 MG TABLET PO SCH (21:00)
[2022-04-09] MEDS: IPRATROPIUM/ALBUTEROL 3 ML AMPUL.NEB NEB SCH ×2 (00:25→08:31)
[2022-04-09] MEDS: methylPREDNISolone SOD SUCC 125 MG/2 ML VIAL IV SCH (05:54)
[2022-04-09] MEDS: 0.9 % SODIUM CHLORIDE 10 ML SYRINGE IV SCH (05:55)
[2022-04-09] MEDS: INSULIN LISPRO 1 UNIT/0.01 ML UNIT SQ SCH (08:31)
--- NOTE | 2022-04-09 08:42 | Discharge Summary ---
Discharge Provider Provider IMPORTANT FOLLOW-UP INFORMATION FOR PCP: Patient information: Note initiated : 04/09/22 at 8:41 am Service Date, if different from initiated Date: [] Patient: Min Hoang 56 y/o M admitted on 04/07/22 for Shortness of breath. Chief Complaint: [] Date of admission: 04/07/22 17:03 Discharge date: 04/09/22 Primary care physician: Yamil Perry MD Consults: 04/07/22 Consult to Physician [CONS] Stat Comment: Consulting Provider: Zachary Jamil Reason For Exam: Physician to Consult COURSE Hospital Course Hospital course: Patient left AMA Discharge diagnosis: Acute on chronic hypoxemic respiratory failure Time Spent with Patient Time attestation: Total time spent providing and/or coordinating discharge services: Time spent: Greater than 30 minutes EXAM Constitutional Vitals: Temp Pulse Resp BP Pulse Ox O2 Del Method O2 Flow Rate 97.5 F 89 16 98/71 97 5 04/09/22 06:02 04/09/22 06:02 04/09/22 06:02 04/09/22 06:01 04/09/22 06:02 04/09/22 06:01 04/09/22 02:02 Discharge Data Data Completed and Pending Labs on day of discharge: Preliminary micro results at discharge 04/08/22 04:05 Gram Stain - Preliminary Sputum source - Induced Discharge Plan Patient/Caregiver Discharge Instructions Prescriptions: No Action metoprolol tartrate 25 mg tablet 25 mg PO BID Qty: 60 3RF Rx Instructions: Told RN that he stopped taking this,"about a month ago," because,"it slows him down." alendronate 10 mg tablet 10 mg PO QDAY Qty: 90 3RF venlafaxine 37.5 mg capsule,extended release 24hr 37.5 mg PO QDAY Qty: 30 2RF Rx Instructions: Take with 75mg to make 112mg/day. venlafaxine 75 mg capsule,extended release 24hr 75 mg PO QDAY Qty: 30 2RF sennosides-docusate sodium [Senna with Docusate Sodium] 8.6-50 mg tablet 1 tab-cap PO QHS Qty: 60 0RF Rx Instructions: 1-2 tab / day. furosemide 40 mg tablet 40 mg PO QAM Qty: 30 5RF Label Comments: not taking as prescribed (DME) Altera Nebulizer Handset Misc See Rx Instructions .Route Qty: 1 0RF Rx Instructions: As directed ipratropium-albuterol 0.5 mg-3 mg(2.5 mg base)/3 mL solution for nebulization 3 ml inhalation QID Qty: 180 3RF spironolactone 25 mg tablet 25 mg PO QDAY Qty: 30 5RF cromolyn 4 % drops 2 drp ophthalmic (eye) QID PRN (Reason: eye irritation) Qty: 10 0RF Breztri Aerosphere 160-9-4.8 mcg/actuation HFA aerosol inhaler 2 puff inhalation BID 0RF prednisone 5 mg tablet 5 mg PO DIRECTED Qty: 32 0RF Rx Instructions: Patient denies allergy to prednisone tablets. 4 p.o. daily x5 days; 3 p.o. daily x2 days; then 2 p.o. daily x2 days; 1 p.o. daily x2 days. Then stop prednisone (DME) oxygen-air delivery systems calcium 600 mg Capsule 600 mg PO BID famotidine [Pepcid AC] 10 mg Tablet 10 mg PO QDAY albuterol sulfate 90 mcg/actuation HFA aerosol inhaler 2 puff inhalation Q6H PRN (Reason: shortness of breath or wheezing) Qty: 8.5 0RF polyethylene glycol 3350 17 gram Powder In Packet 17 g PO BID MDD constipation nicotine 21 mg/24 hr Patch 24 Hour 21 mg topical DAILY@2100 Qty: 21 0RF prednisone 20 mg tablet 40 mg PO QDAY Qty: 8 0RF Rx Instructions: Start taking on 04/07/2022 Follow Up Plan Follow up with: Yamil Perry MD [Primary Care Provider] - Patient Disposition: Left Against Medical Advice Discharge Orders: Discharge Order (Routine); Ordered 04/09/22 Ordered By: Zachary CALDERÓN VTE Deep Vein Thrombosis/Pulmonary Embolism Present on Admission: No
[2022-04-09] MEDS ORDERED: FUROSEMIDE 40 MG TABLET PO SCH (09:00)
[2022-04-09] MEDS ORDERED: SPIRONOLACTONE 25 MG TABLET PO SCH (09:00)
[2022-04-09] MEDS ORDERED: VENLAFAXINE 37.5 MG TAB.ER.24H PO SCH (09:00)
[2022-04-09] MEDS ORDERED: VENLAFAXINE 75 MG CAP.XL.24H PO SCH (09:00)
[2022-04-09] MEDS ORDERED: NICOTINE 21 MG PATCH TOPICAL SCH (10:00)
[2022-04-17 15:04] LABS: Cannabinoid Confirmation Positive; Opiate Confirmation Positive
== END 2022-04-09 07:45 | disposition left against medical advice (07) | DRG 189 ==
LOC: ED 11:23 → ICU 17:03
PROVIDERS: ADMIT Student in an Organized Health Care Education/Training Program; ATTEND Student in an Organized Health Care Education/Training Program

== ENCOUNTER 2022-07-17 12:06 | Inpatient (IN) ==
[2022-07-17] MEDS ORDERED: IPRATROPIUM/ALBUTEROL 3 ML AMPUL.NEB NEB ONE ×2 (12:19→12:50)
[2022-07-17 12:31] LABS: POC Calcium, Ionized 1.19 (1.16-1.32); POC Creatinine 0.9 (0.6-1.2); POC Potassium 4.3 (3.3-5.1)
[2022-07-17] MEDS ORDERED: methylPREDNISolone SOD SUCC 125 MG/2 ML VIAL IV ONE (12:49)
[2022-07-17] MEDS ORDERED: DIPH,PERTUSS(ACELL),TET VAC/PF 0.5 ML SYRINGE IM ONE (12:53)
--- NOTE | 2022-07-17 12:59 | XRay Report ---
HISTORY: Short of breath after rushing to the face FINDINGS: Patient has pulmonary fibrosis with the greatest scarring in the right upper lobe. There are numerous tiny calcified granulomata in both lungs. These are chronic stable findings, unchanged since 04/25/22. There is no evidence of pulmonary infiltrate or edema. Heart size is normal. No pleural effusion is present. IMPRESSION: Stable scar tissue and no acute abnormality Interpreted and Authenticated by: Felix Cui 07/17/22
[2022-07-17 13:07] LABS: Basophils # (Auto) 0.12 K/mcL (0.00-0.30); Basophils % (Auto) 1.2 % (0.0-2.0); Eosinophils # (Auto) 0.38 K/mcL (0.00-0.70); Hematocrit 54.6 % (40.1-51.0); Hemoglobin 17.7 g/dL (13.7-17.5); Lymphocytes # (Auto) 1.84 K/mcL (1.50-4.80); Lymphocytes % (Auto) 19.1 % (15.5-49.0); Mean Cell Volume 97.5 fL (80.0-100.0); Mean Corpuscular HGB Conc 32.4 g/dL (31.0-36.0); Mean Platelet Volume 10.7 fL (8.8-12.5); Monocytes # (Auto) 0.95 K/mcL (0.10-0.90); Monocytes % (Auto) 9.9 % (1.0-12.0); Neutrophils % (Auto) 65.6 % (38.0-78.0); Platelet Count 393 K/mcL (140-440); WBC 9.6 K/mcL (4.5-11.0)
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
[2022-07-17] MEDS ORDERED: HEPARIN 5,000 UNIT/ML VIAL NEB SCH ×2 (15:00→17:00)
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
[2022-07-17 15:15] LABS: ALT/SGPT 29 U/L (<40); AST/SGOT 21 U/L (<40); Alkaline Phosphatase 89 U/L (39-117); Bilirubin,Direct < 0.2 mg/dL (0-0.3); Bilirubin,Total 0.2 mg/dL (0.1-1.0); Globulin 3.4 gm/dL (2.2-3.7)
[2022-07-17] MEDS ORDERED: POTASSIUM CHLORIDE 40 MEQ in DEXTROSE 5% IN WATER 500 ML IV SCH (16:03)
[2022-07-17] MEDS ORDERED: MAGNESIUM SULFATE 2 GM/50 ML BAG IV PRN (16:03)
[2022-07-17] MEDS ORDERED: SENNOSIDES 1 TABLET PO PRN (16:03)
[2022-07-17] MEDS ORDERED: morphine 4 MG/ML VIAL IM PRN (16:03)
[2022-07-17] MEDS ORDERED: ONDANSETRON 4 MG/2 ML VIAL IV PRN (16:03)
[2022-07-17] MEDS ORDERED: NON FORMULARY MEDICATION 1 DOSE MISCELL INH SCH (16:03)
[2022-07-17] MEDS ORDERED: 0.9 % SODIUM CHLORIDE 1,000 ML IV SCH (16:03)
[2022-07-17] MEDS ORDERED: POTASSIUM CHLORIDE 20 MEQ TABLET PO PRN ×2 (16:03)
[2022-07-17] MEDS ORDERED: POLYETHYLENE GLYCOL 3350 17 GM PACKET PO PRN (16:03)
[2022-07-17] MEDS ORDERED: SUCRALFATE 1 GM/10 ML ORAL.SUSP PO ONE (18:23)
[2022-07-17] MEDS ORDERED: LORazepam 2 MG/ML VIAL IV PRN (18:44)
[2022-07-17] MEDS ORDERED: MELATONIN 3 MG TABLET PO PRN (18:45)
[2022-07-17] MEDS ORDERED: NICOTINE 21 MG PATCH ONE (18:47)
[2022-07-17] MEDS: NICOTINE 21 MG PATCH TOPICAL SCH (18:52)
[2022-07-17] MEDS ORDERED: morphine 4 MG/ML VIAL IV PRN (19:09)
[2022-07-17] MEDS: BUDESONIDE 0.5 MG/2 ML AMPUL.NEB NEB SCH (19:18)
[2022-07-17] MEDS: IPRATROPIUM/ALBUTEROL 3 ML AMPUL.NEB NEB SCH ×2 (19:18→23:06)
[2022-07-17] MEDS ORDERED: CROMOLYN 4% OU PRN (19:19)
[2022-07-17] MEDS: FAMOTIDINE 20 MG TABLET PO SCH (19:42)
[2022-07-17] MEDS: MELATONIN 3 MG TABLET PO SCH ×2 (19:43→20:18)
[2022-07-17] MEDS: methylPREDNISolone SOD SUCC 125 MG/2 ML VIAL IV SCH (20:22)
[2022-07-17] MEDS: 0.9 % SODIUM CHLORIDE 10 ML SYRINGE IV SCH (20:24)
[2022-07-18] MEDS: 0.9 % SODIUM CHLORIDE 10 ML SYRINGE IV SCH ×4 (02:26→20:41)
[2022-07-18] MEDS: IPRATROPIUM/ALBUTEROL 3 ML AMPUL.NEB NEB SCH ×5 (03:15→23:21)
[2022-07-18] MEDS: ACETAMINOPHEN 325 MG TABLET PO PRN (05:25)
[2022-07-18 06:19] LABS: Amphetamine Screen,Urine Suspect positive; Barbiturate Screen,Urine None detected; Benzodiazepines Screen,Urine None detected; Cannabinoid Screen,Urine Suspect Positive; Cocaine Screen,Urine None detected; Opiate Screen,Urine None detected; Oxycodone, Urine Screen None detected; Phencyclidine Screen,Urine None detected
[2022-07-18] MEDS: BUDESONIDE 0.5 MG/2 ML AMPUL.NEB NEB SCH ×3 (06:41→19:36)
[2022-07-18 07:39] LABS: Basophils # (Auto) 0.03 K/mcL (0.00-0.30); Basophils % (Auto) 0.2 % (0.0-2.0); Eosinophils # (Auto) 0.01 K/mcL (0.00-0.70); Eosinophils % (Auto) 0.1 % (0.0-7.0); Hematocrit 50.1 % (40.1-51.0); Lymphocytes # (Auto) 0.67 K/mcL (1.50-4.80); Lymphocytes % (Auto) 3.9 % (15.5-49.0); Mean Cell Volume 98.6 fL (80.0-100.0); Mean Corpuscular HGB Conc 31.9 g/dL (31.0-36.0); Mean Platelet Volume 10.6 fL (8.8-12.5); Monocytes # (Auto) 0.51 K/mcL (0.10-0.90); Neutrophils % (Auto) 92.5 % (38.0-78.0); Platelet Count 385 K/mcL (140-440); RBC 5.08 M/mcL (4.63-6.08); Red Cell Distribution Width 12.7 % (11.5-14.5); WBC 17.2 K/mcL (4.5-11.0)
[2022-07-18 07:56] LABS: ALT/SGPT 27 U/L (<40); AST/SGOT 15 U/L (<40); Albumin 3.6 gm/dL (3.2-5.2); Albumin/Globulin Ratio 1.2 (1.0-2.3); Alkaline Phosphatase 81 U/L (39-117); Bilirubin,Direct < 0.2 mg/dL (0-0.3); Bilirubin,Total 0.2 mg/dL (0.1-1.0); Blood Urea Nitrogen 11 mg/dL (6-20); Calcium 8.4 mg/dL (8.6-10.4); Carbon Dioxide 29 mmol/L (22-30); Chloride 99 mmol/L (96-108); Glomerular Filtration Rate 105; Glucose 151 mg/dL (70-105); Lactate Dehydrogenase 210 U/L (135-225); Phosphorous 3.3 mg/dL (2.5-4.5); Triglycerides 84 mg/dL (<150); Uric Acid 5.5 mg/dL (2.5-8.0)
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
[2022-07-18] MEDS ORDERED: POTASSIUM CHLORIDE 40 MEQ in DEXTROSE 5% IN WATER 500 ML IV PRN (08:15)
[2022-07-18] MEDS: FAMOTIDINE 20 MG TABLET PO SCH ×2 (08:45→20:41)
[2022-07-18] MEDS: FUROSEMIDE 40 MG TABLET PO SCH (08:45)
[2022-07-18] MEDS: VENLAFAXINE 75 MG CAP.XL.24H PO SCH (08:45)
[2022-07-18] MEDS: ENOXAPARIN 40 MG/0.4 ML SYRINGE SQ SCH (08:45)
[2022-07-18] MEDS: methylPREDNISolone SOD SUCC 125 MG/2 ML VIAL IV SCH ×2 (08:45→20:41)
[2022-07-18] MEDS ORDERED: SPIRONOLACTONE 25 MG TABLET PO SCH (09:00)
[2022-07-18] MEDS ORDERED: VENLAFAXINE 75 MG CAP.XL.24H PO SCH (09:00)
[2022-07-18] MEDS: NICOTINE 21 MG PATCH TOPICAL SCH (10:01)
[2022-07-18] MEDS ORDERED: ACETYLCYSTEINE 800 MG/4 ML VIAL NEB ONE (11:00)
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
[2022-07-18] MEDS ORDERED: HEPARIN 5,000 UNIT/ML VIAL NEB ONE (13:00)
[2022-07-18] MEDS ORDERED: hydrOXYzine 50 MG/ML VIAL IM PRN (14:05)
[2022-07-18 15:09] LABS: POC Calcium, Ionized 1.04 (1.16-1.32); POC Creatinine 0.8 (0.6-1.2); POC Potassium 4.6 (3.3-5.1)
[2022-07-18] MEDS: HEPARIN 5,000 UNIT/ML VIAL NEB SCH ×3 (17:16→23:22)
[2022-07-18] MEDS: MELATONIN 3 MG TABLET PO SCH (20:41)
[2022-07-19] MEDS: ACETAMINOPHEN 325 MG TABLET PO PRN ×2 (01:26→19:05)
[2022-07-19] MEDS: hydrOXYzine 25 MG TABLET PO PRN ×2 (01:27→21:22)
[2022-07-19] MEDS: IPRATROPIUM/ALBUTEROL 3 ML AMPUL.NEB NEB SCH ×4 (02:54→19:34)
[2022-07-19] MEDS: 0.9 % SODIUM CHLORIDE 10 ML SYRINGE IV SCH ×3 (05:37→21:22)
[2022-07-19 06:24] LABS: Hematocrit 48.1 % (40.1-51.0); Hemoglobin 15.1 g/dL (13.7-17.5); Mean Cell Volume 98.6 fL (80.0-100.0); Mean Corpuscular HGB Conc 31.4 g/dL (31.0-36.0); Mean Platelet Volume 10.6 fL (8.8-12.5); Platelet Count 345 K/mcL (140-440); RBC 4.88 M/mcL (4.63-6.08); Red Cell Distribution Width 12.6 % (11.5-14.5); WBC 14.5 K/mcL (4.5-11.0)
[2022-07-19] MEDS: BUDESONIDE 0.5 MG/2 ML AMPUL.NEB NEB SCH ×2 (06:30→19:34)
[2022-07-19 06:43] LABS: ALT/SGPT 23 U/L (<40); AST/SGOT 14 U/L (<40); Albumin 3.6 gm/dL (3.2-5.2); Albumin/Globulin Ratio 1.4 (1.0-2.3); Alkaline Phosphatase 74 U/L (39-117); Bilirubin,Direct < 0.2 mg/dL (0-0.3); Bilirubin,Total 0.2 mg/dL (0.1-1.0); Blood Urea Nitrogen 16 mg/dL (6-20); Calcium 8.6 mg/dL (8.6-10.4); Carbon Dioxide 31 mmol/L (22-30); Chloride 93 mmol/L (96-108); Globulin 2.6 gm/dL (2.2-3.7); Glomerular Filtration Rate 100; Glucose 151 mg/dL (70-105); Lactate Dehydrogenase 203 U/L (135-225); Phosphorous 2.9 mg/dL (2.5-4.5); Triglycerides 136 mg/dL (<150); Uric Acid 5.7 mg/dL (2.5-8.0)
[2022-07-19] MEDS: FUROSEMIDE 40 MG TABLET PO SCH (08:18)
[2022-07-19] MEDS: VENLAFAXINE 75 MG CAP.XL.24H PO SCH (08:18)
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
[2022-07-19] MEDS: ENOXAPARIN 40 MG/0.4 ML SYRINGE SQ SCH (08:19)
[2022-07-19] MEDS: FAMOTIDINE 20 MG TABLET PO SCH ×2 (08:19→21:22)
[2022-07-19] MEDS: methylPREDNISolone SOD SUCC 125 MG/2 ML VIAL IV SCH ×2 (08:20→21:22)
[2022-07-19 09:12] LABS: Eosinophils % (Manual) 1 % (0-7); Lymphocytes % 4 % (15-49); Monocytes % (Manual) 4 % (1-12); Platelet Estimate NORMAL (Normal); RBC Morphology NORMAL (Normal); Segmented Neutrophils % 91 % (38-78)
[2022-07-19] MEDS: NICOTINE 21 MG PATCH TOPICAL SCH (10:17)
[2022-07-19] MEDS ORDERED: ACETYLCYSTEINE 800 MG/4 ML VIAL NEB SCH (11:00)
[2022-07-19] MEDS ORDERED: IPRATROPIUM/ALBUTEROL 3 ML AMPUL.NEB NEB PRN (15:47)
[2022-07-19] MEDS ORDERED: IPRATROPIUM/ALBUTEROL 3 ML AMPUL.NEB NEB SCH (16:00)
--- NOTE | 2022-07-19 16:12 | EKG ---
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 Measurements Intervals [place] Rate: 110 P: 79 [place]: 145 QRS: 98 QRSD: 87 T: 52 QT: 345 QTc: 467 Interpretive Statements Sinus tachycardia Borderline right axis deviation Electronically Signed On 07-19-2022 16:12:15 PDT by Ty Cui M.D. /[id number]
[2022-07-19] MEDS: MELATONIN 3 MG TABLET PO SCH (21:22)
[2022-07-20] MEDS: IPRATROPIUM/ALBUTEROL 3 ML AMPUL.NEB NEB SCH ×3 (00:49→13:29)
[2022-07-20] MEDS: 0.9 % SODIUM CHLORIDE 10 ML SYRINGE IV SCH ×3 (05:37→20:39)
[2022-07-20 06:21] LABS: Basophils # (Auto) 0.01 K/mcL (0.00-0.30); Basophils % (Auto) 0.1 % (0.0-2.0); Eosinophils # (Auto) 0.01 K/mcL (0.00-0.70); Eosinophils % (Auto) 0.1 % (0.0-7.0); Hematocrit 48.5 % (40.1-51.0); Hemoglobin 15.3 g/dL (13.7-17.5); Lymphocytes # (Auto) 0.41 K/mcL (1.50-4.80); Lymphocytes % (Auto) 3.3 % (15.5-49.0); Mean Corpuscular HGB Conc 31.5 g/dL (31.0-36.0); Mean Platelet Volume 10.3 fL (8.8-12.5); Monocytes # (Auto) 0.41 K/mcL (0.10-0.90); Monocytes % (Auto) 3.3 % (1.0-12.0); Neutrophils % (Auto) 92.6 % (38.0-78.0); Platelet Count 323 K/mcL (140-440); Red Cell Distribution Width 12.8 % (11.5-14.5); WBC 12.4 K/mcL (4.5-11.0)
[2022-07-20 06:49] LABS: Blood Urea Nitrogen 17 mg/dL (6-20); Calcium 8.5 mg/dL (8.6-10.4); Carbon Dioxide 36 mmol/L (22-30); Chloride 96 mmol/L (96-108); Glomerular Filtration Rate 112; Glucose 154 mg/dL (70-105)
[2022-07-20] MEDS: BUDESONIDE 0.5 MG/2 ML AMPUL.NEB NEB SCH ×2 (07:26→21:00)
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
[2022-07-20] MEDS: VENLAFAXINE 75 MG CAP.XL.24H PO SCH (08:26)
[2022-07-20] MEDS: FAMOTIDINE 20 MG TABLET PO SCH ×2 (08:27→20:37)
[2022-07-20] MEDS: methylPREDNISolone SOD SUCC 125 MG/2 ML VIAL IV SCH ×2 (08:27→20:37)
[2022-07-20] MEDS: ENOXAPARIN 40 MG/0.4 ML SYRINGE SQ SCH (08:27)
[2022-07-20] MEDS: FUROSEMIDE 40 MG TABLET PO SCH (08:27)
[2022-07-20] MEDS: ACETAMINOPHEN 325 MG TABLET PO PRN ×2 (08:41→15:54)
[2022-07-20] MEDS: NICOTINE 21 MG PATCH TOPICAL SCH (08:56)
[2022-07-20] MEDS: hydrOXYzine 25 MG TABLET PO PRN (20:37)
[2022-07-20] MEDS: MELATONIN 3 MG TABLET PO SCH (20:37)
[2022-07-21] MEDS: 0.9 % SODIUM CHLORIDE 10 ML SYRINGE IV SCH (05:30)
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
[2022-07-21] MEDS: BUDESONIDE 0.5 MG/2 ML AMPUL.NEB NEB SCH (08:22)
[2022-07-21] MEDS ORDERED: METOPROLOL TARTRATE 25 MG TABLET PO SCH (09:00)
[2022-07-21] MEDS ORDERED: IPRATROPIUM 2.5 ML AMPUL.NEB NEB SCH (09:00)
[2022-07-21] MEDS ORDERED: LEVALBUTEROL 1.25 MG/3 ML AMPUL.NEB NEB SCH (09:00)
[2022-07-21] MEDS: methylPREDNISolone SOD SUCC 125 MG/2 ML VIAL IV SCH (09:21)
[2022-07-21] MEDS: ENOXAPARIN 40 MG/0.4 ML SYRINGE SQ SCH (09:21)
[2022-07-21] MEDS: VENLAFAXINE 75 MG CAP.XL.24H PO SCH (09:22)
[2022-07-21] MEDS: FUROSEMIDE 40 MG TABLET PO SCH (09:22)
[2022-07-21] MEDS: FAMOTIDINE 20 MG TABLET PO SCH (09:22)
[2022-07-21] MEDS: ACETAMINOPHEN 325 MG TABLET PO PRN (09:37)
[2022-07-21] MEDS: NICOTINE 21 MG PATCH TOPICAL SCH (11:20)
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
== END 2022-07-21 13:50 | disposition home or self-care (01) | DRG 205 ==
LOC: ICU 12:06 → ED 12:06 → ICU 16:05
PROVIDERS: ADMIT Internal Medicine; ATTEND Internal Medicine

== ENCOUNTER 2023-01-18 19:24 | Inpatient (IN) ==
[2023-01-18] MEDS ORDERED: IPRATROPIUM/ALBUTEROL 3 ML AMPUL.NEB NEB ONE ×3 (19:35→22:54)
[2023-01-18] MEDS ORDERED: methylPREDNISolone SOD SUCC 125 MG/2 ML VIAL IV ONE (19:35)
[2023-01-18 20:04] LABS: POC Calcium, Ionized 1.13 (1.16-1.32); POC Creatinine 0.9 (0.6-1.2); POC Potassium 4.1 (3.3-5.1)
[2023-01-18] MEDS ORDERED: AZITHROMYCIN 500 MG in DEXTROSE 5% IN WATER 250 ML IV ONE (21:02)
[2023-01-18] MEDS ORDERED: cefTRIAXone 1 GM VIAL IV ONE (21:02)
[2023-01-18 21:56] LABS: Basophils # (Auto) 0.06 K/mcL (0.00-0.30); Basophils % (Auto) 0.6 % (0.0-2.0); Eosinophils # (Auto) 0.51 K/mcL (0.00-0.70); Eosinophils % (Auto) 5.4 % (0.0-7.0); Hematocrit 44.4 % (40.1-51.0); Hemoglobin 13.7 g/dL (13.7-17.5); Lymphocytes # (Auto) 1.39 K/mcL (1.50-4.80); Lymphocytes % (Auto) 14.7 % (15.5-49.0); Mean Cell Volume 101.1 fL (80.0-100.0); Mean Corpuscular HGB Conc 30.9 g/dL (31.0-36.0); Mean Platelet Volume 10.4 fL (8.8-12.5); Monocytes # (Auto) 0.93 K/mcL (0.10-0.90); Monocytes % (Auto) 9.8 % (1.0-12.0); Neutrophils % (Auto) 69.4 % (38.0-78.0); Platelet Count 314 K/mcL (140-440); RBC 4.39 M/mcL (4.63-6.08); Red Cell Distribution Width 11.6 % (11.5-14.5); WBC 9.5 K/mcL (4.5-11.0)
[2023-01-18] MEDS ORDERED: OSELTAMIVIR PHOSPHATE 75 MG CAPSULE PO ONE (22:37)
[2023-01-18] MEDS ORDERED: ALBUTEROL SULFATE 2.5 MG/3 ML NEBULIZER NEB ONE (22:41)
[2023-01-19] MEDS ORDERED: cefTRIAXone 1 GM VIAL IV SCH (00:34)
[2023-01-19] MEDS ORDERED: IPRATROPIUM/ALBUTEROL 3 ML AMPUL.NEB NEB ONE ×2 (00:42→06:43)
[2023-01-19] MEDS: BUDESONIDE 0.5 MG/2 ML AMPUL.NEB NEB SCH ×3 (00:48→19:45)
[2023-01-19] MEDS: IPRATROPIUM/ALBUTEROL 3 ML AMPUL.NEB NEB SCH ×4 (00:48→19:45)
[2023-01-19] MEDS: 0.9 % SODIUM CHLORIDE 10 ML SYRINGE IV SCH ×4 (00:53→21:10)
[2023-01-19] MEDS ORDERED: NICOTINE 14 MG PATCH ONE (01:18)
[2023-01-19] MEDS ORDERED: NICOTINE 21 MG PATCH ONE (01:18)
[2023-01-19 01:21] LABS: Estimated Average Glucose(eAG) 108 mg/dL; Hemoglobin A1C 5.4 % Hgb (4.0-6.0)
[2023-01-19] MEDS: NICOTINE 21 MG PATCH TOPICAL SCH ×2 (01:27→09:51)
[2023-01-19] MEDS: NICOTINE 14 MG PATCH TOPICAL SCH ×2 (01:29→09:51)
[2023-01-19 02:49] LABS: ALT/SGPT 19 U/L (<40); AST/SGOT 19 U/L (<40); Albumin 3.8 gm/dL (3.2-5.2); Albumin/Globulin Ratio 0.9 (1.0-2.3); Alkaline Phosphatase 113 U/L (39-117); Bilirubin,Total < 0.2 mg/dL (0.1-1.0); Blood Urea Nitrogen 16 mg/dL (6-20); Calcium 9.4 mg/dL (8.6-10.4); Carbon Dioxide 29 mmol/L (22-30); Chloride 91 mmol/L (96-108); Glomerular Filtration Rate 105; Glucose 178 mg/dL (70-105)
[2023-01-19] MEDS ORDERED: methylPREDNISolone SOD SUCC 40 MG/ML VIAL IV ONE (05:31)
[2023-01-19] MEDS: methylPREDNISolone SOD SUCC 40 MG/ML VIAL IV SCH ×3 (05:40→21:09)
[2023-01-19 06:48] LABS: Basophils # (Auto) 0.01 K/mcL (0.00-0.30); Basophils % (Auto) 0.2 % (0.0-2.0); Eosinophils # (Auto) 0 K/mcL (0.00-0.70); Eosinophils % (Auto) 0 % (0.0-7.0); Hematocrit 49.7 % (40.1-51.0); Hemoglobin 14.8 g/dL (13.7-17.5); Lymphocytes # (Auto) 0.53 K/mcL (1.50-4.80); Lymphocytes % (Auto) 8.2 % (15.5-49.0); Mean Cell Volume 103.1 fL (80.0-100.0); Mean Corpuscular HGB Conc 29.8 g/dL (31.0-36.0); Mean Platelet Volume 10.1 fL (8.8-12.5); Monocytes # (Auto) 0.16 K/mcL (0.10-0.90); Monocytes % (Auto) 2.5 % (1.0-12.0); Neutrophils % (Auto) 88.9 % (38.0-78.0); Platelet Count 267 K/mcL (140-440); RBC 4.82 M/mcL (4.63-6.08); Red Cell Distribution Width 11.6 % (11.5-14.5); WBC 6.5 K/mcL (4.5-11.0)
[2023-01-19 07:16] LABS: ALT/SGPT 18 U/L (<40); AST/SGOT 27 U/L (<40); Albumin 3.8 gm/dL (3.2-5.2); Alkaline Phosphatase 104 U/L (39-117); Bilirubin,Total < 0.2 mg/dL (0.1-1.0); Blood Urea Nitrogen 14 mg/dL (6-20); Calcium 9.5 mg/dL (8.6-10.4); Carbon Dioxide 29 mmol/L (22-30); Chloride 92 mmol/L (96-108); Globulin 3.9 gm/dL (2.2-3.7); Glomerular Filtration Rate 105; Glucose 162 mg/dL (70-105)
[2023-01-19 09:04] LABS: ABG Methemoglobin 0 % (0.4-1.5); Total Hemoglobin 14.3 gm/Dl (13.5-16.5); VBG Base Excess 9 (-2-3); VBG HCO3 35.2 mmol/L (24.0-28.0); VBG Oxygen Saturation 86.2 % (40.0-70.0); VBG PCO2 53.2 mmHg (41.0-51.0); VBG PH 7.44 U (7.32-7.42); VBG PO2 55.3 mmHg (25.0-40.0); VBG Total CO2 36.9 mmol/L (25.0-29.0)
[2023-01-19] MEDS: OSELTAMIVIR PHOSPHATE 75 MG CAPSULE PO SCH ×2 (09:51→21:11)
[2023-01-19] MEDS: cefTRIAXone 1 GM VIAL IV SCH (09:51)
[2023-01-19] MEDS: ENOXAPARIN 40 MG/0.4 ML SYRINGE SQ SCH (09:52)
[2023-01-19 10:52] LABS: Amphetamine Screen,Urine Suspect positive; Barbiturate Screen,Urine None detected; Benzodiazepines Screen,Urine None detected; Cannabinoid Screen,Urine Suspect Positive; Cocaine Screen,Urine None detected; Opiate Screen,Urine Suspect Positive; Oxycodone, Urine Screen Suspect Positive; Phencyclidine Screen,Urine None detected
[2023-01-19] MEDS: METOPROLOL TARTRATE 5 MG/5 ML VIAL IV PRN ×3 (11:56→23:53)
[2023-01-19] MEDS: HYDROcodone/APAP 5/325MG TABLET PO PRN ×3 (11:56→23:52)
[2023-01-20] MEDS: IPRATROPIUM/ALBUTEROL 3 ML AMPUL.NEB NEB SCH ×4 (01:07→20:01)
[2023-01-20] MEDS: methylPREDNISolone SOD SUCC 40 MG/ML VIAL IV SCH ×3 (06:02→20:47)
[2023-01-20] MEDS: 0.9 % SODIUM CHLORIDE 10 ML SYRINGE IV SCH ×3 (06:05→20:47)
[2023-01-20] MEDS: BUDESONIDE 0.5 MG/2 ML AMPUL.NEB NEB SCH ×2 (06:16→20:01)
[2023-01-20] MEDS: HYDROcodone/APAP 5/325MG TABLET PO PRN ×3 (06:33→18:32)
[2023-01-20] MEDS: METOPROLOL TARTRATE 5 MG/5 ML VIAL IV PRN ×3 (06:33→22:16)
[2023-01-20 06:41] LABS: Basophils # (Auto) 0.02 K/mcL (0.00-0.30); Basophils % (Auto) 0.1 % (0.0-2.0); Eosinophils # (Auto) 0 K/mcL (0.00-0.70); Eosinophils % (Auto) 0 % (0.0-7.0); Hematocrit 41.8 % (40.1-51.0); Lymphocytes # (Auto) 0.53 K/mcL (1.50-4.80); Lymphocytes % (Auto) 3.1 % (15.5-49.0); Mean Cell Volume 99.5 fL (80.0-100.0); Mean Corpuscular HGB Conc 31.1 g/dL (31.0-36.0); Mean Platelet Volume 10.8 fL (8.8-12.5); Monocytes % (Auto) 2.9 % (1.0-12.0); Neutrophils % (Auto) 93.4 % (38.0-78.0); Platelet Count 308 K/mcL (140-440); Red Cell Distribution Width 11.7 % (11.5-14.5); WBC 17.1 K/mcL (4.5-11.0)
[2023-01-20 07:10] LABS: ALT/SGPT 12 U/L (<40); AST/SGOT 10 U/L (<40); Albumin 3.7 gm/dL (3.2-5.2); Albumin/Globulin Ratio 1.3 (1.0-2.3); Alkaline Phosphatase 87 U/L (39-117); Bilirubin,Total < 0.2 mg/dL (0.1-1.0); Blood Urea Nitrogen 17 mg/dL (6-20); Carbon Dioxide 32 mmol/L (22-30); Chloride 97 mmol/L (96-108); Globulin 2.9 gm/dL (2.2-3.7); Glomerular Filtration Rate 112; Glucose 133 mg/dL (70-105)
[2023-01-20] MEDS: cefTRIAXone 1 GM VIAL IV SCH (08:09)
[2023-01-20] MEDS: OSELTAMIVIR PHOSPHATE 75 MG CAPSULE PO SCH ×2 (08:09→20:47)
[2023-01-20] MEDS: ENOXAPARIN 40 MG/0.4 ML SYRINGE SQ SCH (08:09)
[2023-01-20] MEDS: NICOTINE 14 MG PATCH TOPICAL SCH (08:10)
[2023-01-20] MEDS: NICOTINE 21 MG PATCH TOPICAL SCH (08:10)
[2023-01-21] MEDS: IPRATROPIUM/ALBUTEROL 3 ML AMPUL.NEB NEB SCH ×2 (01:22→06:18)
[2023-01-21] MEDS: HYDROcodone/APAP 5/325MG TABLET PO PRN ×2 (02:17→08:15)
[2023-01-21] MEDS: 0.9 % SODIUM CHLORIDE 10 ML SYRINGE IV SCH (05:11)
[2023-01-21] MEDS: methylPREDNISolone SOD SUCC 40 MG/ML VIAL IV SCH (05:11)
[2023-01-21 06:20] LABS: Basophils # (Auto) 0.01 K/mcL (0.00-0.30); Basophils % (Auto) 0.1 % (0.0-2.0); Eosinophils # (Auto) 0 K/mcL (0.00-0.70); Eosinophils % (Auto) 0 % (0.0-7.0); Hematocrit 46.5 % (40.1-51.0); Hemoglobin 14.6 g/dL (13.7-17.5); Lymphocytes # (Auto) 0.72 K/mcL (1.50-4.80); Lymphocytes % (Auto) 4.7 % (15.5-49.0); Mean Cell Volume 99.1 fL (80.0-100.0); Mean Corpuscular HGB Conc 31.4 g/dL (31.0-36.0); Mean Platelet Volume 10.7 fL (8.8-12.5); Monocytes # (Auto) 0.46 K/mcL (0.10-0.90); Neutrophils % (Auto) 91.7 % (38.0-78.0); Platelet Count 338 K/mcL (140-440); RBC 4.69 M/mcL (4.63-6.08); Red Cell Distribution Width 11.9 % (11.5-14.5); WBC 15.2 K/mcL (4.5-11.0)
[2023-01-21] MEDS: BUDESONIDE 0.5 MG/2 ML AMPUL.NEB NEB SCH ×2 (06:34→08:18)
[2023-01-21 06:48] LABS: ALT/SGPT 16 U/L (<40); AST/SGOT 13 U/L (<40); Albumin/Globulin Ratio 1.2 (1.0-2.3); Alkaline Phosphatase 94 U/L (39-117); Bilirubin,Total < 0.2 mg/dL (0.1-1.0); Blood Urea Nitrogen 18 mg/dL (6-20); Calcium 9.2 mg/dL (8.6-10.4); Carbon Dioxide 30 mmol/L (22-30); Chloride 96 mmol/L (96-108); Globulin 3.3 gm/dL (2.2-3.7); Glomerular Filtration Rate 112; Glucose 144 mg/dL (70-105)
[2023-01-21] MEDS: ENOXAPARIN 40 MG/0.4 ML SYRINGE SQ SCH (08:14)
[2023-01-21] MEDS: NICOTINE 21 MG PATCH TOPICAL SCH (08:15)
[2023-01-21] MEDS: NICOTINE 14 MG PATCH TOPICAL SCH (08:15)
[2023-01-21] MEDS: cefTRIAXone 1 GM VIAL IV SCH (08:16)
[2023-01-21] MEDS: OSELTAMIVIR PHOSPHATE 75 MG CAPSULE PO SCH (08:16)
== END 2023-01-21 12:40 | disposition home or self-care (01) | DRG 190 ==
LOC: ED 19:24 → ICU 01-19 00:26
PROVIDERS: ADMIT Internal Medicine; ATTEND Internal Medicine